=== PATIENT | female | born 1945 | race Asian ===

== ENCOUNTER 2019-10-04 12:42 | Outpatient (RCR) | payer MEDICARE, SELFPAY ==
[2019-10-04 14:00] LABS: CRP 0.6 mg/dL (<1.0); Estimated Glomerular Filt Rate 48
[2019-10-04 14:01] LABS: Erythrocyte Sedimentation Rate 126 mm/hr (0-20)
== END 2020-01-02 23:59 | disposition home or self-care (01) ==
LOC: HOME HLTH 12:42
PROVIDERS: Visit Provider Internal Medicine
DX: T81.49XD Infection following a procedure, other surgical site, subsequent encounter (principal); I70.213 Atherosclerosis of native arteries of extremities with intermittent claudication, bilateral legs; Z95.1 Presence of aortocoronary bypass graft; Z95.820 Peripheral vascular angioplasty status with implants and grafts
CPT/HCPCS: 82565; 85652; 86140

== ENCOUNTER 2019-10-11 11:21 | Outpatient (RCR) | payer MEDICARE, SELFPAY ==
[2019-10-11 12:18] LABS: CRP 0.6 mg/dL (<1.0); Estimated Glomerular Filt Rate 44
[2019-10-11 12:50] LABS: Erythrocyte Sedimentation Rate 91 mm/hr (0-20)
== END 2020-01-09 23:59 | disposition home or self-care (01) ==
LOC: HOME HLTH 11:21
PROVIDERS: Visit Provider Internal Medicine
DX: T81.49XD Infection following a procedure, other surgical site, subsequent encounter (principal); Z48.812 Encounter for surgical aftercare following surgery on the circulatory system; I70.213 Atherosclerosis of native arteries of extremities with intermittent claudication, bilateral legs; Z95.820 Peripheral vascular angioplasty status with implants and grafts; Z95.1 Presence of aortocoronary bypass graft
CPT/HCPCS: 82565; 85652; 86140

== ENCOUNTER 2019-10-18 15:28 | Outpatient (CLI) | payer MEDICARE, SELFPAY ==
[2019-10-18 18:04] LABS: CRP < 0.5 mg/dL (<1.0); Estimated Glomerular Filt Rate 48
[2019-10-18 18:12] LABS: Erythrocyte Sedimentation Rate 68 mm/hr (0-20)
== END 2019-10-18 15:29 | disposition home or self-care (01) ==
LOC: ANHBWCLAB 15:34
PROVIDERS: PCP Internal Medicine; Visit Provider Internal Medicine
DX: I70.213 Atherosclerosis of native arteries of extremities with intermittent claudication, bilateral legs (principal); Z95.1 Presence of aortocoronary bypass graft; Z95.820 Peripheral vascular angioplasty status with implants and grafts; Z48.812 Encounter for surgical aftercare following surgery on the circulatory system
CPT/HCPCS: 36415; 82565; 85652; 86140

== ENCOUNTER 2021-01-03 10:30 | Outpatient (RCR) | payer MEDICARE, SELFPAY ==
[2020-12-29 15:51] VITALS: PULSE 58
--- NOTE | 2021-01-01 10:44 | PCCPR ---
Patient absent for today's session stating she has too much to do today.
--- NOTE | 2021-01-04 10:44 | PCCPR ---
Absent due to illness Alesha called this am states she is very sore from her visit yesterday. She c/o feeling achey. States she plans to discuss if Cardiac rehab may be too much for her at this time. She plans to let us know on Friday.
--- NOTE | 2021-01-10 10:43 | PCCPR ---
Addendum entered by Ricarda Noel RN 01/25/21 11:01: Spoke with Carito states she is currently hospitalized at [facility] for pneumonia and difficulty swallowing. Explained we can give her a call in a couple of weeks to check on her condition. Addendum entered by Ricarda Noel RN 01/10/21 17:43: Alesha left message after her apt states her MD told her to hold off rehab for now. States he wants to tweek a few more things that will helf per feel little better prior to returning. States ok to place her on hold and will call us when she is ready to return. Original Note: Continued absence Spoke with Carito this am states she has an apt with her Yoga Teacher later today. She has x 1 visit here and c/o feeling achey all over and was not sure she could could continue. She plans to discuss this and let us know her plan for return.
== END 2021-02-23 10:09 | disposition home or self-care (01) ==
LOC: ANHCPREHAB 10:30
PROVIDERS: PCP Internal Medicine
DX: Z95.5 Presence of coronary angioplasty implant and graft (principal)
CPT/HCPCS: 93798

== ENCOUNTER 2021-02-19 18:40 | IRF | payer MEDICARE, SELFPAY ==
--- NOTE | ~2021-02-19 | XR_ITS ---
EXAMINATION: XR chest 2V EXAM DATE: 02/20/2021 15:10 INDICATION: Elevated white count. Recent pneumonia and CHF. TECHNIQUE: Frontal and lateral projections of the chest obtained and reviewed. There is no prior hollis dy for comparison. FINDINGS: Sternotomy wires are present without findings to suggest sternal dehiscence. There is incre ased left basilar reticulation which could be edema and/or pneumonia. Could be improving given histor y provided, but no prior studies here for comparison. Mild cardiomegaly. No confluent consolidation, pneumothorax or pleural effusion suspected. There are a couple of coronary artery stents. There is ao rtic arteriosclerosis. Mild hyperinflation. Mild mid thoracic compression fracture appears chronic. IMPRESSION: 1. Abnormal left basilar reticulation, edema and/or infection. No confluent consolidation. 2. Mild cardiomegaly. Reviewed, dictated and finalized at location A. IMPRESSION: 1. Abnormal left basilar reticulation, edema and/or infection. No confluent c onsolidation. 2. Mild cardiomegaly.
[2021-02-19 18:05] VITALS: BP 158/57; PULSE 67; RESP 16; TEMP 36; O2SAT 97; BMI 30.9
--- NOTE | 2021-02-19 18:40 | ADMGEN ---
This patient, Alesha Leo, was admitted to [facility] Room 220-02. Patient/family oriented to hospital policies and general routines including ID bracelet, bed and alarms, visiting hours, pain management, procedures, bathroom and other care routines, personal items, smoking policy, room service/diet, and visiting hours. Information on how to activate the Rapid Response Team has been discussed. Patient/Family are encouraged to report perceived risks to care and to ask questions if they do not understand what they are told or what they should do. Arrived with [facility], V/S are stable, patient is alert and oriented at this time
[2021-02-19 19:56] LABS: Glucose Point of Care 114 mg/dl (65-105)
[2021-02-19 20:00] VITALS: PULSE 67; RESP 16; O2SAT 97
[2021-02-19 22:00] VITALS: BP 153/51; PULSE 65; RESP 16; TEMP 36.6; O2SAT 97
[2021-02-19 22:02] VITALS: PULSE 67
[2021-02-19] MEDS: METOPROLOL TARTRATE 12.5 MG TABLET PO (22:02)
[2021-02-19] MEDS: GABAPENTIN 300 MG CAPSULE PO (22:02)
[2021-02-19] MEDS: SENNA/DOCUSATE SODIUM TABLET 1 TAB PO (22:02)
[2021-02-19] MEDS: TICAGRELOR 90 MG TABLET PO (22:03)
[2021-02-20 02:59] VITALS: PULSE 63; RESP 20; O2SAT 93
[2021-02-20 05:15] LABS: Basophils Absolute Auto 0.1 K/mm3 (0.0-0.1); Basophils Percent Auto 0.4 % (0.2-1.2); Eosinophils Absolute Auto 0.2 K/mm3 (0-0.3); Eosinophils Percent Auto 1.6 % (0-4.4); Hematocrit 24.5 % (37.0-47.0); Hemoglobin 7.3 g/dL (12.0-15.0); Immature Granulocyte Absolute 0.21 K/mm3 (0.00-0.031); Immature Granulocyte Percent A 1.5 % (0-0.5); Lymphocytes Absolute Auto 1.01 K/mm3 (0.9-3.2); Lymphocytes Percent Auto 7.2 % (18.3-44.2); Mean Corpuscular HGB Conc 29.8 g/dl (32-36); Mean Corpuscular Volume 83.9 fl (80-100); Mean Platelet Volume 11.1 fl (7.4-10.4); Monocytes Absolute Auto 0.8 K/mm3 (0.1-0.6); Monocytes Percent Auto 5.5 % (2.6-8.5); Neutrophils Absolute Auto 11.7 K/mm3 (1.3-6.7); Neutrophils Percent Auto 83.8 % (45.5-73.1); Platelet Count Result 334 k/mm3 (150-375); Red Blood Count 2.92 M/mm3 (4.2-5.4); Red Cell Distribution Width 15.4 % (11.5-14.5); White Blood Count 13.9 K/mm3 (4.5-10.0)
[2021-02-20 05:27] LABS: Alanine Aminotransferase 8 U/L (4-35); Albumin Level 3.2 g/dL (3.5-5.1); Alkaline Phosphatase 65 U/L (38-126); Anion Gap 9 mmol/L (8-16); Aspartate Amino Transferase 23 U/L (14-36); Bilirubin,Total 0.3 mg/dL (0.2-1.3); Blood Urea Nitrogen 14 mg/dL (7-17); Calcium 9.6 mg/dL (8.4-10.2); Carbon Dioxide 22 mmol/L (22-30); Chloride 107 mmol/L (98-107); Estimated CRCL calculation 25 ml/min; Estimated Glomerular Filt Rate 31; Glucose 166 mg/dL (65-105); Hemoglobin A1C 7.3 % (<5.7); Sodium 138 mmol/L (137-145)
[2021-02-20 06:00] VITALS: BP 147/40; PULSE 70; RESP 20; TEMP 36.8; O2SAT 94
[2021-02-20 06:51] LABS: Glucose Point of Care 146 mg/dl (65-105)
[2021-02-20] MEDS: FLUTICASONE/SALMETEROL 115-21 MCG INHALER 1 PUFF 2 PUFF INHALATION (09:32)
[2021-02-20] MEDS: LORATADINE 10 MG TABLET PO (10:02)
[2021-02-20] MEDS: buPROPion HCL 75 MG TABLET PO ×2 (10:02→17:14)
[2021-02-20] MEDS: FAMOTIDINE 20 MG TABLET 40 MG PO (10:02)
[2021-02-20] MEDS: OMEGA 3 POLYUNSAT FATTY ACIDS 1 GM CAP 2 GM PO (10:03)
[2021-02-20] MEDS: TICAGRELOR 90 MG TABLET PO ×2 (10:03→20:18)
[2021-02-20] MEDS: CEFUROXIME AXETIL 250 MG TABLET 500 MG PO ×2 (10:03→20:13)
[2021-02-20] MEDS: VENLAFAXINE HCL 25 MG TABLET PO ×2 (10:04→17:15)
[2021-02-20] MEDS: FLUoxetine HCL 20 MG CAPSULE 40 MG PO (10:04)
[2021-02-20] MEDS: ATORVASTATIN 40 MG TABLET 80 MG PO (10:04)
[2021-02-20] MEDS: ASPIRIN 81 MG CHEWABLE TABLET PO (10:04)
[2021-02-20] MEDS: FUROSEMIDE 20 MG TABLET PO (10:04)
[2021-02-20 10:05] VITALS: PULSE 70
[2021-02-20] MEDS: ISOSORBIDE MONONITRATE 10 MG TABLET PO ×2 (10:05→17:15)
[2021-02-20] MEDS: METOPROLOL TARTRATE 12.5 MG TABLET PO ×2 (10:05→20:16)
[2021-02-20] MEDS: FERROUS SULFATE 324 MG TABLET PO (10:05)
[2021-02-20] MEDS: amLODIPine BESYLATE 5 MG TABLET PO (10:05)
[2021-02-20] MEDS: ONDANSETRON HCL ODT 4 MG TABLET PO (11:11)
--- NOTE | 2021-02-20 11:46 | PCSTNOTE ---
Please refer to the Bedside Swallow Evaluation in the EMR. Please note, silent aspiration cannot be ruled out at bedside.
[2021-02-20 12:10] LABS: Glucose Point of Care 162 mg/dl (65-105)
[2021-02-20 12:20] VITALS: BMI 30.9
--- NOTE | 2021-02-20 12:58 | WPDREHABHP ---
H&P: HPI History of Present Illness Date/Time: 02/20/21 12:58 Chief Complaint: acute congestive heart failure Narrative: HISTORY OF PRESENT ILLNESS: The patient's primary rehab impairment category is 14 cardiac The etiologic diagnosis is acute congestive heart failure I saw this patient [id number] on 02/20/2021 The patient is a 75-year-old female past medical history of JASON, AFib, coronary artery disease, depression, diabetes, dyspnea on exertion, GERD, peripheral vascular disease and hypertension who initially presented to [facility] from 01/23-2020 for pneumonia. Patient was discharged on 02/03 and readmitted on 02/04 with congestive heart failure, left pleural effusion and mild pulmonary edema. Patient was placed on Solu-Medrol and nebulizers. D-dimer was elevated but CT could not be performed due to acute kidney injury. The patient was transferred to [facility] on 02/04/2021 per family's request. Patient was found to be in acute congestive heart failure requiring IV Lasix, acute cystitis and UTI with IV cefoxitin for 5-7 days starting on 02/16/2021. Modified barium swallow showed pharyngeal esophageal dysphagia. Patient was placed on a pureed diet with thin liquids. Patient is to follow with Dr. Bergeron, ENT. Acute kidney injury was resolving with down trending lab values. Diuretics were used judiciously. H and H continue to down trend without clinical signs of bleeding or symptoms Therapy was initiated at the acute care facility and the patient transferred to us from [facility] on 02/19/2021 FALLS OR SURGERIES: The patient reports no falls in the past 6 months nor any major surgery in the past 100 days PRIOR LEVEL OF FUNCTION: Eating was [INDEPENDENT] Oral Care was [INDEPENDENT] Toileting Hygiene was [INDEPENDENT] Shower/Bathing was [INDEPENDENT] Upper Body Dressing was [INDEPENDENT] Lower Body Dressing was [INDEPENDENT] Donning/[place] Footwear was [INDEPENDENT] Rolling Left and Right was [INDEPENDENT] Sit to Lying was [INDEPENDENT] Lying to Sitting was [INDEPENDENT] Sit to Stand was [INDEPENDENT] Bed to Chair Transfers was [INDEPENDENT] Toilet Transfers was [INDEPENDENT] Walking was [INDEPENDENT] [>500 feet] with [NO DEVICE] Wheelchair Mobility was [NOT APPLICABLE PRIOR TO ADMISSION] Stairs were [INDEPENDENT] CURRENT LEVEL OF FUNCTION: Eating was independent Oral Care was supervision Toileting Hygiene was partial to mod assist Shower/Bathing was partial to mod assist Upper Body Dressing was supervision or touching assist Lower Body Dressing was partial to mod assist Donning/[place] Footwear was partial to mod assist Rolling Left and Right was supervision Sit to Lying was supervision Lying to Sitting was supervision Sit to Stand was partial to mod assist Bed to Chair Transfers were partial to mod assist Toilet Transfers were partial to mod assist Walking was 300 ft with a rolling walker and partial to mod assist Wheelchair Mobility was not tested Stairs were not tested GOALS: Our therapists will evaluate the patient and establish the goals. However, upon pre-admission screening, the expected goals were to be [INDEPENDENT] with self-care, [INDEPENDENT] with transfers, and [INDEPENDENT] with functional mobility so that the patient can return home. ESTIMATED LENGTH OF STAY: [ 7-10 days POTENTIAL BARRIERS TO DISCHARGE: Family needs training. Severity of condition. Architectural barriers. ACTIVE CO-MORBIDITIES PRESENT ON ADMISSION: Active co-morbidities include urinary tract infection, dyspnea on exertion, obstructive sleep apnea, atrial fib, depression, diabetes mellitus, gastropathy esophageal reflux disease, kidney calculus, peripheral vascular disease, hypertension, Frenchie x's off a senior care dysphagia, pneumonia, acute kidney injury, acute cystitis. The above co-morbidities impact the patient's function and/or functional outcome by decreasi
--- NOTE | 2021-02-20 13:40 | PCNSR ---
On 02/20/21, the student, Nette Abdi, provided care and completed [facility] documentation on this patient. I have reviewed the student's documentation and agree with the findings.
[2021-02-20 14:00] VITALS: BP 120/42; PULSE 57; RESP 14; TEMP 36; O2SAT 97
--- NOTE | 2021-02-20 17:04 | RPD ---
INDIVIDUALIZED PLAN OF CARE FOR Alesha Leo Brief Synthesis of Pre-Admission Screen, Post-Admission Evaluation and Therapy Evaluations: The patient presents to rehab with acute congestive heart failure, acute cystitis, and dysphagia. Comorbidities include urinary tract infection, dyspnea on exertion, obstructive sleep apnea, atrial fibrillation, depression, diabetes mellitus, gastroesophageal reflux disease, kidney calculus, peripheral vascular disease, hypertension, pharyngoesophageal dysphagia, pneumonia, acute kidney injury, and acute cystitis. The complexity of the patient's medical management, nursing, and therapy needs require an inpatient rehab hospital stay with a physician-led interdisciplinary team approach. The patient?s needs will be best met in an intensive program vs. at a lower level of care. The patient requires physician services for medical oversight, management of medical complications in setting of present comorbidities, and pain management. The patient requires nursing services for anticoagulation therapy, diabetes training, DVT prophylactics, IV administration, infection protection, medication management and education, pressure relief, and wound care. Deficits include:ADLs, Balance, Endurance, Family Training/Education, Mobility, Pain Management, ROM, Safety, Strength, Swallowing, and Transfers. Class A Regional Drivers/Case Management for: Discharge Planning and Patient/Family Counseling Physical Therapy: 5 days per week for 60 minutes. Treatments may include: Therapeutic Exercise, Gait Training, Neuromuscular Re-education, Transfer Training, Community Reintegration, Bed Mobility, Patient/Family Education, Wheelchair Mobility Group Therapy/Concurrent Therapy Rationales: -Improve attention span during functional activities in a distracted environment. -Enhance problem solving and/or adequate judgment skills during functional activities in a distracted environment. -Promote increased safety awareness in a distracted environment to reduce fall risk with functional tasks, transfers, and ambulation to allow a more safe, self-sufficient return to the home environment. -Improve dynamic balance skills to promote safety and independence with functional activities in a distracted environment for maximum gain. Occupational Therapy: 5 days per week for 60 minutes. Treatments may include: Therapeutic Exercise, Therapeutic Activity, Cognitive Training, Self-Care Transfer Training, Community Reintegration, Home Management, Patient/Family Education, Wheelchair Mobility Training, Energy Conservation Training Group Therapy/Concurrent Therapy Rationales: -Allow therapist to observe and teach generalization and carry-over of skills learned in individual therapy. -Enhance problem solving and sequencing skills during therapeutic activities in a distracted environment. -Promote increased safety awareness in a realistic setting to reduce fall risk with functional tasks due to visual and verbal distractions. -Increase functional level with ADLs, ADL transfers and use of adaptive equipment through therapeutic activities with others while promoting safety to allow a more safe, self-sufficient return home. Speech Therapy: 5 days per week for 60 minutes. Treatments may include: Dysphasia Therapy, Speech/Language/Communication Therapy, Cognitive Training, Patient/Family Education Group Therapy/Concurrent Therapy - Rationale: -Allow therapist to observe and teach generalization and carry-over of skills learned in individual therapy. -Improve comprehension skills with complex or abstract ideas through discussion in a realistic setting. -Enhance problem solving skills with complex issues during activities in a distracted environment. -Promote increased memory skills and concentration in a distracted environment for a safe transition home. -Improve attention and focus with language/communication skills in a realistic and supportive therapeutic setting. -Allow for practice of expres
[2021-02-20] MEDS: FENOFIBRATE NANOCRYSTALLIZED 145 MG TABLET PO (17:11)
[2021-02-20] MEDS: INSULIN GLARGINE (*BKC) 100 UNITS/ML 15 UNITS SUB-Q (20:11)
[2021-02-20] MEDS: GABAPENTIN 300 MG CAPSULE PO (20:15)
[2021-02-20 20:16] VITALS: PULSE 60
[2021-02-20] MEDS: SENNA/DOCUSATE SODIUM TABLET 1 TAB PO (20:17)
[2021-02-20] MEDS: FLUTICASONE/SALMETEROL 115-21 MCG (*SP) INHALER 2 PUFF INHALATION (21:31)
[2021-02-20 21:57] VITALS: BP 124/58; PULSE 58; RESP 18; TEMP 36.5; O2SAT 97
[2021-02-20 22:39] LABS: Glucose Point of Care 148 mg/dl (65-105)
[2021-02-20 22:39] LABS: Glucose Point of Care 168 mg/dl (65-105)
--- NOTE | 2021-02-21 02:01 | PC.NURSE ---
pt reports having a bloody nose, bleeding has stopped at this time. Will continue to monitor.
[2021-02-21 05:48] VITALS: BP 139/42; PULSE 51; RESP 20; TEMP 36.2; O2SAT 98
[2021-02-21 06:27] LABS: Glucose Point of Care 111 mg/dl (65-105)
[2021-02-21] MEDS: ASPIRIN 81 MG CHEWABLE TABLET PO (10:29)
[2021-02-21] MEDS: VENLAFAXINE HCL 25 MG TABLET PO ×2 (10:30→17:09)
[2021-02-21] MEDS: FLUTICASONE/SALMETEROL 115-21 MCG (*SP) INHALER 2 PUFF INHALATION ×2 (10:30→19:50)
[2021-02-21] MEDS: FAMOTIDINE 20 MG TABLET 40 MG PO (10:30)
[2021-02-21] MEDS: amLODIPine BESYLATE 5 MG TABLET PO (10:31)
[2021-02-21] MEDS: FLUoxetine HCL 20 MG CAPSULE 40 MG PO (10:31)
[2021-02-21] MEDS: buPROPion HCL 75 MG TABLET PO ×2 (10:31→17:08)
[2021-02-21] MEDS: CEFUROXIME AXETIL 250 MG TABLET 500 MG PO ×2 (10:32→21:19)
[2021-02-21 10:33] VITALS: PULSE 51
[2021-02-21] MEDS: FUROSEMIDE 20 MG TABLET PO (10:33)
[2021-02-21] MEDS: ISOSORBIDE MONONITRATE 10 MG TABLET PO ×2 (10:33→17:08)
[2021-02-21] MEDS: LORATADINE 10 MG TABLET PO (10:33)
[2021-02-21] MEDS: TICAGRELOR 90 MG TABLET PO ×2 (10:33→21:18)
[2021-02-21] MEDS: FERROUS SULFATE 324 MG TABLET PO (10:33)
[2021-02-21] MEDS: METOPROLOL TARTRATE 12.5 MG TABLET PO ×2 (10:33→21:19)
[2021-02-21 13:09] LABS: Basophils Absolute Auto 0.1 K/mm3 (0.0-0.1); Basophils Percent Auto 0.7 % (0.2-1.2); Eosinophils Absolute Auto 0.2 K/mm3 (0-0.3); Eosinophils Percent Auto 2.1 % (0-4.4); Hematocrit 25.4 % (37.0-47.0); Hemoglobin 7.4 g/dL (12.0-15.0); Immature Granulocyte Absolute 0.17 K/mm3 (0.00-0.031); Immature Granulocyte Percent A 1.7 % (0-0.5); Lymphocytes Absolute Auto 1.27 K/mm3 (0.9-3.2); Lymphocytes Percent Auto 12.9 % (18.3-44.2); Mean Corpuscular HGB Conc 29.1 g/dl (32-36); Mean Corpuscular Hemoglobin 24.8 pg (26-34); Mean Corpuscular Volume 85.2 fl (80-100); Mean Platelet Volume 11.3 fl (7.4-10.4); Monocytes Absolute Auto 0.6 K/mm3 (0.1-0.6); Neutrophils Absolute Auto 7.6 K/mm3 (1.3-6.7); Neutrophils Percent Auto 76.6 % (45.5-73.1); Nucleated Red Blood Cells Perc 0.2 % (0.0-0.2); Platelet Count Result 379 k/mm3 (150-375); Red Blood Count 2.98 M/mm3 (4.2-5.4); White Blood Count 9.9 K/mm3 (4.5-10.0)
[2021-02-21] MEDS: FENOFIBRATE NANOCRYSTALLIZED 145 MG TABLET PO (13:24)
[2021-02-21 14:00] VITALS: BP 129/48; PULSE 60; RESP 18; TEMP 36.2; O2SAT 96
--- NOTE | 2021-02-21 14:00 | WPDNEURORHBP ---
Subjective Date/time seen: 02/21/21 14:00 Interval history: Diagnosis: acute on chronic congestive heart failure with acute on chronic kidney disease The patient is a 75-year-old female past medical history of JASON, AFib, coronary artery disease, depression, diabetes, dyspnea on exertion, GERD, peripheral vascular disease and hypertension who initially presented to [facility] from 01/23-2020 for pneumonia. Patient was discharged on 02/03 and readmitted on 02/04 with congestive heart failure, left pleural effusion and mild pulmonary edema. Patient was placed on Solu-Medrol and nebulizers. D-dimer was elevated but CT could not be performed due to acute kidney injury. The patient was transferred to [facility] on 02/04/2021 per family's request. Patient was found to be in acute congestive heart failure requiring IV Lasix, and diagnosed with acute cystitis and UTI with IV cefoxitin for 5-7 days starting on 02/16/2021. Modified barium swallow showed pharyngeal esophageal dysphagia. Patient was placed on a pureed diet with thin liquids. Patient is to follow with Dr. Bergeron, ENT. Acute kidney injury was resolving with down trending lab values. Diuretics were used judiciously. H and H continue to down trend without clinical signs of bleeding or symptoms Therapy was initiated at the acute care facility and the patient transferred to us from [facility] on 02/19/2021 02/21/21 Alesha complains of loose stools. She has been on IV antibiotics off and on for the last few weeks for treatments of pneumonia and urinary tract infection. Stool softeners will be changed to p.r.n.. Patient will be started on Florastor. Patient has difficulty swallowing pills whole. Currently, pills are being crushed. Patient will be advanced to minced and moist diet. to bring in home meds. Patient with polypharmacy. Review of Systems Review of Systems: All systems reviewed & are unremarkable except as noted in HPI and below Functional Status Ambulation Ability Ability to Ambulate 10 Feet: Contact Guard Ability to Ambulate 50 Feet With 2 Turns: Contact Guard Ambulation Assistive Devices: Walker, Wheeled Exam Narrative: Exam Narrative: Head is normocephalic. External ocular muscles are intact. Neck is supple. Heart rate and rhythm is regular. Lungs are decreased in both bases. Abdomen is soft nontender. Bilateral upper and lower extremity strength are 4- out of 5. Endurance is fair. Cognition reveals mild memory deficits and organizational deficits. Transfers are CGA Objective Data Vital Signs Vital Signs: Vital Signs - 24 hr 02/20/21 20:16 02/20/21 21:57 02/21/21 05:48 Temperature 36.5 C 36.2 C L Pulse Rate 60 58 L 51 L Respiratory Rate 18 20 Blood Pressure 124/58 L 139/42 L Pulse Oximetry 97 98 02/21/21 10:33 Temperature Pulse Rate 51 L Respiratory Rate Blood Pressure Pulse Oximetry Intake/Output Intake/Output: Intake & Output 02/18/21 02/19/21 02/20/21 02/21/21 23:59 23:59 23:59 23:59 Intake Total 480 480 Balance 480 480 Meds/Results Medications: Active Medications Generic Name Dose Route Start Last Admin Trade Name Freq PRN Reason Stop Dose Admin Albuterol 2 puff 02/19/21 20:12 Albuterol Sulfate (*Sp) Aerosol 1 Puff INHALATION Q6H PRN Shortness Of Breath Or Wheezing Amlodipine Besylate 5 mg 02/20/21 09:00 02/21/21 10:31 Amlodipine Besylate 5 Mg Tablet PO 5 mg DAILY GERRI Administration Aspirin 81 mg 02/20/21 08:00 02/21/21 10:29 Aspirin 81 Mg Chewable Tablet PO 81 mg DAILY@0800 GERRI Administration Atorvastatin Calcium 80 mg 02/20/21 09:00 02/20/21 10:04 Atorvastatin 40 Mg Tablet PO 80 mg Q48H GERRI Administration Bupropion HCl 75 mg 02/20/21 09:00 02/21/21 10:31 Bupropion Hcl 75 Mg Tablet PO 75 mg BID GERRI Administration Cefuroxime Axetil 500 mg 02/20/21 09:00 02/21/21 10:32 Cefuroxime Axetil 250 Mg T
[2021-02-21 15:42] LABS: Hypochromasia 1+ (NORMAL)
[2021-02-21 15:43] LABS: Anisocytosis 2+ (NORMAL)
[2021-02-21 16:37] LABS: Glucose Point of Care 181 mg/dl (65-105)
[2021-02-21 16:57] LABS: Glucose Point of Care 184 mg/dl (65-105)
[2021-02-21] MEDS: SACCHAROMYCES BOULARDII 250 MG CAPSULE PO (17:08)
--- NOTE | 2021-02-21 17:44 | P.CONIM_ITS ---
Assessment and Plan Assessment and plan (1) Chronic diastolic CHF (congestive heart failure): Code(s): I50.32 - Chronic diastolic (congestive) heart failure Status: Acute Assessment and Plan: * Appears euvolemic and well-compensated now after recent hospitalization for CHF exacerbation. * Continue oral lasix and monitor. * Her pie bakery laborer is Dr Gallagher at [facility]. (2) Anemia: Qualifiers: Anemia type: unspecified type Qualified Code(s): D64.9 - Anemia, unspecified Code(s): D64.9 - Anemia, unspecified Status: Acute Assessment and Plan: * Hgb low but stable at 7.4. Notes she had blood transfusion at [facility]. Denies black or red blood in stool. * Monitor CBC and for signs of bleeding. Continue iron supplementation. (3) Urinary tract infection: Qualifiers: Urinary tract infection type: site unspecified Hematuria presence: without hematuria Qualified Code(s): N39.0 - Urinary tract infection, site not specified Code(s): N39.0 - Urinary tract infection, site not specified Status: Acute Assessment and Plan: * Completes her course of antibiotics today. She denies urinary symptoms today. (4) Acute kidney injury superimposed on chronic kidney disease: Code(s): N17.9 - Acute kidney failure, unspecified; N18.9 - Chronic kidney disease, uns pecified Status: Acute Assessment and Plan: * Monitor renal function and urine output. (5) Hypertension: Qualifiers: Hypertension type: essential hypertension Qualified Code(s): I10 - Essential (primary) hypertension Code(s): I10 - Essential (primary) hypertension Status: Chronic Assessment and Plan: * Blood pressures reviewed. Stable, on lower end. Continue her home metoprolol, amlodipine. * Monitor BP and adjust treatment as needed. (6) Atrial fibrillation: Qualifiers: Atrial fibrillation type: paroxysmal Qualified Code(s): I48.0 - Paroxysmal atrial fibrillation Code(s): I48.91 - Unspecified atrial fibrillation Status: Chronic Assessment and Plan: * Rate controlled on home metoprolol. Continue Brilinta and aspirin. (7) Diabetes mellitus: Qualifiers: Diabetes mellitus type: type 2 Diabetes mellitus fpc insulin use: with buttermaker continuous churn use Diabetes mellitus complication status: with neurologic complications Diabetes mellitus complication detail: with unspecified neuropathy Qualified Code(s): E11.40 - Type 2 diabetes mellitus with diabetic neuropathy, unspecified; Z79.4 - moth exterminator (current) use of insulin Code(s): E11.9 - Type 2 diabetes mellitus without complications Status: Chronic Assessment and Plan: * Hgb A1c 7.3%. Continue Lantus. Blood sugars are well-controlled. Continue a diabetic diet. * Continue to monitor with accu-cheks and adjust treatment as needed. Add sliding scale insulin with Novolog if blood sugars increase. (8) Dysphagia, pharyngoesophageal: Code(s): R13.14 - Dysphagia, pharyngoesophageal phase Status: Acute Assessment and Plan: * Advanced to minced/moist with thin liquids. Was previously on pureed diet. Patient tells me she did well without coughing or other difficulty. * Continue ST.
--- NOTE | 2021-02-21 17:44 | PM.IMCN ---
Assessment and Plan Assessment and plan (1) Chronic diastolic CHF (congestive heart failure): Code(s): I50.32 - Chronic diastolic (congestive) heart failure Status: Acute Assessment and Plan: Appears euvolemic and well-compensated now after recent hospitalization for CHF exacerbation. Continue oral lasix and monitor. Her dba is Dr Gallagher at [facility]. (2) Anemia: Qualifiers: Anemia type: unspecified type Qualified Code(s): D64.9 - Anemia, unspecified Code(s): D64.9 - Anemia, unspecified Status: Acute Assessment and Plan: Hgb low but stable at 7.4. Notes she had blood transfusion at [facility]. Denies black or red blood in stool. Monitor CBC and for signs of bleeding. Continue iron supplementation. (3) Urinary tract infection: Qualifiers: Urinary tract infection type: site unspecified Hematuria presence: without hematuria Qualified Code(s): N39.0 - Urinary tract infection, site not specified Code(s): N39.0 - Urinary tract infection, site not specified Status: Acute Assessment and Plan: Completes her course of antibiotics today. She denies urinary symptoms today. (4) Acute kidney injury superimposed on chronic kidney disease: Code(s): N17.9 - Acute kidney failure, unspecified; N18.9 - Chronic kidney disease, unspecified Status: Acute Assessment and Plan: Monitor renal function and urine output. (5) Hypertension: Qualifiers: Hypertension type: essential hypertension Qualified Code(s): I10 - Essential (primary) hypertension Code(s): I10 - Essential (primary) hypertension Status: Chronic Assessment and Plan: Blood pressures reviewed. Stable, on lower end. Continue her home metoprolol, amlodipine. Monitor BP and adjust treatment as needed. (6) Atrial fibrillation: Qualifiers: Atrial fibrillation type: paroxysmal Qualified Code(s): I48.0 - Paroxysmal atrial fibrillation Code(s): I48.91 - Unspecified atrial fibrillation Status: Chronic Assessment and Plan: Rate controlled on home metoprolol. Continue Brilinta and aspirin. (7) Diabetes mellitus: Qualifiers: Diabetes mellitus type: type 2 Diabetes mellitus manager terminal insulin use: with halfway use Diabetes mellitus complication status: with neurologic complications Diabetes mellitus complication detail: with unspecified neuropathy Qualified Code(s): E11.40 - Type 2 diabetes mellitus with diabetic neuropathy, unspecified; Z79.4 - senior living (current) use of insulin Code(s): E11.9 - Type 2 diabetes mellitus without complications Status: Chronic Assessment and Plan: Hgb A1c 7.3%. Continue Lantus. Blood sugars are well-controlled. Continue a diabetic diet. Continue to monitor with accu-cheks and adjust treatment as needed. Add sliding scale insulin with Novolog if blood sugars increase. (8) Dysphagia, pharyngoesophageal: Code(s): R13.14 - Dysphagia, pharyngoesophageal phase Status: Acute Assessment and Plan: Advanced to minced/moist with thin liquids. Was previously on pureed diet. Patient tells me she did well without coughing or other difficulty. Continue ST. (9) Peripheral vascular disease: Code(s): I73.9 - Peripheral vascular disease, unspecified Status: Chronic Assessment and Plan: Patient reports multiple vascular procedures to right leg in the past including stents and bypass. Her vascular surgeon is Dr Nicko Madrid at [facility]. Continue her home Brilinta and ASA.
[2021-02-21 21:19] VITALS: PULSE 60
[2021-02-21] MEDS: GABAPENTIN 300 MG CAPSULE PO (21:24)
[2021-02-21] MEDS: INSULIN GLARGINE (*BKC) 100 UNITS/ML 15 UNITS SUB-Q (21:41)
[2021-02-21 22:00] VITALS: BP 151/46; PULSE 56; RESP 20; TEMP 35.8; O2SAT 99
[2021-02-22 03:53] LABS: Glucose Point of Care 188 mg/dl (65-105)
[2021-02-22 05:56] VITALS: BP 149/46; PULSE 53; RESP 20; TEMP 36.6; O2SAT 95
[2021-02-22 06:25] LABS: Glucose Point of Care 132 mg/dl (65-105)
[2021-02-22] MEDS: ATORVASTATIN 40 MG TABLET 80 MG PO (09:42)
[2021-02-22] MEDS: FLUoxetine HCL 20 MG CAPSULE 40 MG PO (09:42)
[2021-02-22] MEDS: VENLAFAXINE HCL 25 MG TABLET PO ×2 (09:42→18:20)
[2021-02-22] MEDS: SACCHAROMYCES BOULARDII 250 MG CAPSULE PO ×2 (09:42→18:20)
[2021-02-22] MEDS: FAMOTIDINE 20 MG TABLET 40 MG PO (09:42)
[2021-02-22] MEDS: TICAGRELOR 90 MG TABLET PO ×2 (09:42→20:59)
[2021-02-22] MEDS: FUROSEMIDE 20 MG TABLET PO (09:42)
[2021-02-22] MEDS: buPROPion HCL 75 MG TABLET PO ×2 (09:42→18:21)
[2021-02-22] MEDS: FENOFIBRATE NANOCRYSTALLIZED 145 MG TABLET PO (09:42)
[2021-02-22] MEDS: ISOSORBIDE MONONITRATE 10 MG TABLET PO ×2 (09:42→18:20)
[2021-02-22 09:43] VITALS: PULSE 62
[2021-02-22] MEDS: METOPROLOL TARTRATE 12.5 MG TABLET PO ×2 (09:43→20:58)
[2021-02-22] MEDS: ASPIRIN 81 MG CHEWABLE TABLET PO (09:43)
[2021-02-22] MEDS: amLODIPine BESYLATE 5 MG TABLET PO (09:43)
[2021-02-22] MEDS: FERROUS SULFATE 324 MG TABLET PO (09:43)
[2021-02-22] MEDS: LORATADINE 10 MG TABLET PO (09:43)
[2021-02-22] MEDS: FLUTICASONE/SALMETEROL 115-21 MCG (*SP) INHALER 2 PUFF INHALATION ×2 (09:43→21:00)
--- NOTE | 2021-02-22 09:54 | WPDNEURORHBP ---
Subjective Date/time seen: 02/22/21 09:54 Interval history: Diagnosis: acute on chronic congestive heart failure with acute on chronic kidney disease The patient is a 75-year-old female past medical history of JASON, AFib, coronary artery disease, depression, diabetes, dyspnea on exertion, GERD, peripheral vascular disease and hypertension who initially presented to [facility] from 01/23-2020 for pneumonia. Patient was discharged on 02/03 and readmitted on 02/04 with congestive heart failure, left pleural effusion and mild pulmonary edema. Patient was placed on Solu-Medrol and nebulizers. D-dimer was elevated but CT could not be performed due to acute kidney injury. The patient was transferred to [facility] on 02/04/2021 per family's request. Patient was found to be in acute congestive heart failure requiring IV Lasix, and diagnosed with acute cystitis and UTI with IV cefoxitin for 5-7 days starting on 02/16/2021. Modified barium swallow showed pharyngeal esophageal dysphagia. Patient was placed on a pureed diet with thin liquids. Patient is to follow with Dr. Bergeron, ENT. Acute kidney injury was resolving with down trending lab values. Diuretics were used judiciously. H and H continue to down trend without clinical signs of bleeding or symptoms Therapy was initiated at the acute care facility and the patient transferred to [facility] from [facility] on 02/19/2021 02/21/21 Alesha complains of loose stools. She has been on IV antibiotics off and on for the last few weeks for treatments of pneumonia and urinary tract infection. Stool softeners will be changed to p.r.n.. Patient will be started on Florastor. Patient has difficulty swallowing pills whole. Currently, pills are being crushed. Patient will be advanced to minced and moist diet. to bring in home meds. Patient with polypharmacy. 02/22/21 Patient having difficulties with liquids and cream of wheat. Speech therapist is aware. Speech therapist will test pureed diet and nectar thick liquids again. Patient denies any other complaints. Review of Systems Review of Systems: All systems reviewed & are unremarkable except as noted in HPI and below Functional Status Ambulation Ability Ability to Ambulate 10 Feet: Contact Guard Ability to Ambulate 50 Feet With 2 Turns: Contact Guard Ambulation Assistive Devices: Walker, Wheeled Exam Narrative: Exam Narrative: Head is normocephalic. External ocular muscles are intact. Neck is supple. Heart rate and rhythm is regular. Lungs are decreased in both bases. Abdomen is soft nontender. Bilateral upper and lower extremity strength are 4- out of 5. Endurance is fair. Cognition reveals mild memory deficits and organizational deficits. Transfers are CGA. Sitting tolerance is greater than 4 hours. Patient able to participate fully with therapy Objective Data Vital Signs Vital Signs: Vital Signs - 24 hr 02/21/21 10:33 02/21/21 14:00 02/21/21 21:19 Temperature 36.2 C L Pulse Rate 51 L 60 60 Respiratory Rate 18 Blood Pressure 129/48 L Pulse Oximetry 96 02/21/21 22:00 02/22/21 05:56 02/22/21 09:43 Temperature 35.8 C L 36.6 C Pulse Rate 56 L 53 L 62 Respiratory Rate 20 20 Blood Pressure 151/46 H 149/46 H Pulse Oximetry 99 95 Intake/Output Intake/Output: Intake & Output 02/19/21 02/20/21 02/21/21 02/22/21 23:59 23:59 23:59 23:59 Intake Total 480 720 120 Balance 480 720 120 Meds/Results Medications: Active Medications Generic Name Dose Route Start Last Admin Trade Name Freq PRN Reason Stop Dose Admin Albuterol 2 puff 02/19/21 20:12 Albuterol Sulfate (*Sp) Aerosol 1 Puff INHALATION Q6H PRN Shortness Of Breath Or Wheezing Amlodipine Besylate 5 mg 02/20/21 09:00 02/22/21 09:43 Amlodipine Besylate 5 Mg Tablet PO 5 mg DAILY GERRI Administration Aspirin 81 mg 02/20/21 08:00 02/22/21 09:43 Aspirin 81 Mg Chewable Tablet PO 81 mg DA
[2021-02-22 14:00] VITALS: BP 124/48; PULSE 60; RESP 18; TEMP 36.1; O2SAT 98
[2021-02-22] MEDS: GABAPENTIN 300 MG CAPSULE PO (21:00)
[2021-02-22 21:33] LABS: Glucose Point of Care 175 mg/dl (65-105)
[2021-02-22] MEDS: INSULIN GLARGINE (*BKC) 100 UNITS/ML 15 UNITS SUB-Q (21:57)
[2021-02-22 22:00] VITALS: BP 149/45; PULSE 62; RESP 18; TEMP 37; O2SAT 96
[2021-02-23 05:17] LABS: Basophils Absolute Auto 0.1 K/mm3 (0.0-0.1); Basophils Percent Auto 0.7 % (0.2-1.2); Eosinophils Absolute Auto 0.2 K/mm3 (0-0.3); Eosinophils Percent Auto 2.7 % (0-4.4); Hematocrit 22.7 % (37.0-47.0); Immature Granulocyte Absolute 0.08 K/mm3 (0.00-0.031); Lymphocytes Absolute Auto 1.48 K/mm3 (0.9-3.2); Lymphocytes Percent Auto 18.4 % (18.3-44.2); Mean Corpuscular HGB Conc 30.4 g/dl (32-36); Mean Corpuscular Hemoglobin 25.7 pg (26-34); Mean Corpuscular Volume 84.4 fl (80-100); Mean Platelet Volume 11.2 fl (7.4-10.4); Monocytes Absolute Auto 0.7 K/mm3 (0.1-0.6); Monocytes Percent Auto 8.2 % (2.6-8.5); Neutrophils Absolute Auto 5.6 K/mm3 (1.3-6.7); Platelet Count Result 313 k/mm3 (150-375); Red Blood Count 2.69 M/mm3 (4.2-5.4); Red Cell Distribution Width 17.1 % (11.5-14.5); White Blood Count 8.1 K/mm3 (4.5-10.0)
[2021-02-23 05:21] LABS: Hemoglobin 6.9 g/dL (12.0-15.0)
[2021-02-23 05:23] LABS: Anion Gap 10 mmol/L (8-16); Blood Urea Nitrogen 23 mg/dL (7-17); Calcium 9.6 mg/dL (8.4-10.2); Carbon Dioxide 22 mmol/L (22-30); Chloride 106 mmol/L (98-107); Estimated CRCL calculation 18 ml/min; Estimated Glomerular Filt Rate 22; Glucose 119 mg/dL (65-105); Potassium 4.1 mmol/L (3.4-5.0); Sodium 138 mmol/L (137-145)
[2021-02-23 06:00] VITALS: BP 146/49; PULSE 69; RESP 18; TEMP 36.7; O2SAT 95
[2021-02-23 06:13] LABS: Glucose Point of Care 123 mg/dl (65-105)
[2021-02-23] MEDS: FLUTICASONE/SALMETEROL 115-21 MCG (*SP) INHALER 2 PUFF INHALATION ×2 (09:32→21:01)
[2021-02-23 09:33] VITALS: PULSE 70
[2021-02-23] MEDS: LORATADINE 10 MG TABLET PO (09:33)
[2021-02-23] MEDS: VENLAFAXINE HCL 25 MG TABLET PO ×2 (09:33→17:06)
[2021-02-23] MEDS: METOPROLOL TARTRATE 12.5 MG TABLET PO ×2 (09:33→21:01)
[2021-02-23] MEDS: ISOSORBIDE MONONITRATE 10 MG TABLET PO ×2 (09:33→17:06)
[2021-02-23] MEDS: FUROSEMIDE 20 MG TABLET PO (09:33)
[2021-02-23] MEDS: ASPIRIN 81 MG CHEWABLE TABLET PO (09:33)
[2021-02-23] MEDS: amLODIPine BESYLATE 5 MG TABLET PO (09:33)
[2021-02-23] MEDS: FLUoxetine HCL 20 MG CAPSULE 40 MG PO (09:33)
[2021-02-23] MEDS: FAMOTIDINE 20 MG TABLET 40 MG PO (09:33)
[2021-02-23] MEDS: FERROUS SULFATE 324 MG TABLET PO (09:33)
[2021-02-23] MEDS: ERGOCALCIFEROL 50,000 UNIT CAPSULE 50000 UNITS PO (09:33)
[2021-02-23] MEDS: FENOFIBRATE NANOCRYSTALLIZED 145 MG TABLET PO (09:33)
[2021-02-23] MEDS: SACCHAROMYCES BOULARDII 250 MG CAPSULE PO ×2 (09:34→17:06)
[2021-02-23] MEDS: TICAGRELOR 90 MG TABLET PO ×2 (09:34→21:01)
[2021-02-23] MEDS: buPROPion HCL 75 MG TABLET PO ×2 (09:34→17:06)
--- NOTE | 2021-02-23 10:38 | PCDIET ---
Nutrition Follow-Up Complete: Nutrition Diagnosis: Inadequate oral intake related to CHF as evidenced by weight loss of 15lbs within one month. Nutrition Goal: Patient will meet estimated nutritional needs. Goal in progress. Patient consumed average of 68% of recorded meals since last review. c/o difficulty with cream of wheat yesterday. PREFITTER following. Patient currently on diabetic diet, minced and moist diet with level 2 liquids and Glucerna TID. Patient requesting to decrease Glucerna to 1x daily. Last recorded weight is 74.3 kg. Recommend obtaining new weight. Bowel Motility: Last documented BM on 02/21/21. Labs Reviewed: RBC (2.69), Hgb (6.9), Hct (22.7), Glu (119), BUN (23), Cr (2.2) Meds Noted: Norvasc, Lipitor, Drisdol, Pepcid, Tricor, Ferrous Sulfate, Lovaza, Lasix Additional Notes: No documented pressure sores. Will continue to monitor with same goal. Nutrition Monitoring and Evaluation: Will follow up in 5 days.
[2021-02-23 11:18] LABS: Glucose Point of Care 171 mg/dl (65-105)
--- NOTE | 2021-02-23 11:24 | WPDNEURORHBP ---
Subjective Date/time seen: 02/23/21 11:24 Interval history: Interval history: Diagnosis: acute on chronic congestive heart failure with acute on chronic kidney disease The patient is a 75-year-old female past medical history of JASON, AFib, coronary artery disease, depression, diabetes, dyspnea on exertion, GERD, peripheral vascular disease and hypertension who initially presented to [facility] from 01/23-2020 for pneumonia. Patient was discharged on 02/03 and readmitted on 02/04 with congestive heart failure, left pleural effusion and mild pulmonary edema. Patient was placed on Solu-Medrol and nebulizers. D-dimer was elevated but CT could not be performed due to acute kidney injury. The patient was transferred to [facility] on 02/04/2021 per family's request. Patient was found to be in acute congestive heart failure requiring IV Lasix, and diagnosed with acute cystitis and UTI with IV cefoxitin for 5-7 days starting on 02/16/2021. Modified barium swallow showed pharyngeal esophageal dysphagia. Patient was placed on a pureed diet with thin liquids. Patient is to follow with Dr. Bergeron, ENT. Acute kidney injury was resolving with down trending lab values. Diuretics were used judiciously. H and H continue to down trend without clinical signs of bleeding or symptoms Therapy was initiated at the acute care facility and the patient transferred to us from [facility] on 02/19/2021 02/21/21 Alesha complains of loose stools. She has been on IV antibiotics off and on for the last few weeks for treatments of pneumonia and urinary tract infection. Stool softeners will be changed to p.r.n.. Patient will be started on Florastor. Patient has difficulty swallowing pills whole. Currently, pills are being crushed. Patient will be advanced to minced and moist diet. to bring in home meds. Patient with polypharmacy. 02/22/21 Patient having difficulties with liquids and cream of wheat. Speech therapist is aware. Speech therapist will test pureed diet and nectar thick liquids again. Patient denies any other complaints. 02/23/21 Morning blood work revealed hemoglobin of 6.9. A repeat hemoglobin will be performed later today with hospitalists making the decision if patient requires blood transfusion. Patient voices no complaints. Patient feels that she is back to her baseline. Patient does not feel fatigued or weak. Appreciate hospitalist input. Review of Systems Review of Systems: All systems reviewed & are unremarkable except as noted in HPI and below Functional Status Ambulation Ability Ability to Ambulate 10 Feet: Standby Assistance Ability to Ambulate 50 Feet With 2 Turns: Contact Guard Ability to Ambulate 150 Feet: Contact Guard Ambulation Assistive Devices: Walker, Wheeled Exam Narrative: Exam Narrative: Exam Narrative: Head is normocephalic. External ocular muscles are intact. Neck is supple. Heart rate and rhythm is regular. Lungs are decreased in both bases. Voice quality is wet. Patient is able to cough and improve overall qaulity . Abdomen is soft nontender. Bilateral upper and lower extremity strength are 4- out of 5. Endurance is fair. Cognition reveals mild memory deficits and organizational deficits. Transfers are CGA?SBA. Sitting tolerance is greater than 4 hours. Patient able to participate fully with therapy Objective Data Vital Signs Vital Signs: Vital Signs - 24 hr 02/22/21 14:00 02/22/21 22:00 02/23/21 06:00 Temperature 36.1 C L 37.0 C 36.7 C Pulse Rate 60 62 69 Respiratory Rate 18 18 18 Blood Pressure 124/48 L 149/45 H 146/49 H Pulse Oximetry 98 96 95 02/23/21 09:33 Temperature Pulse Rate 70 Respiratory Rate Blood Pressure Pulse Oximetry Intake/Output Intake/Output: Intake & Output 02/20/21 02/21/21 02/22/21 02/23/21 23:59 23:59 23:59 23:59 Intake Total 480 720 480 240 Balance 480 720 480 240 Meds/Results Medications: Active Medications Ge
[2021-02-23 12:49] LABS: Hematocrit 24.3 % (37.0-47.0); Hemoglobin 7.3 g/dL (12.0-15.0)
[2021-02-23 14:00] VITALS: BP 118/47; PULSE 60; RESP 16; TEMP 36.5; O2SAT 96
--- NOTE | 2021-02-23 15:37 | P.PNIM_ITS ---
Progress Note: A&P Assessment and Plan (1) Chronic diastolic CHF (congestive heart failure): Code(s): I50.32 - Chronic diastolic (congestive) heart failure Status: Acute Assessment and Plan: * Appears euvolemic and well-compensated now after recent hospitalization for CHF exacerbation. * Continue oral lasix and monitor. * Her geophysical laboratory director is Dr Gallagher at [facility]. (2) Anemia: Qualifiers: Anemia type: unspecified type Qualified Code(s): D64.9 - Anemia, unspecified Code(s): D64.9 - Anemia, unspecified Status: Acute Assessment and Plan: * Hgb 6.9 this morning. Discussed with Dr Rock. Repeat labs this afternoon shows Hgb up to 7.3, will hold off on blood transfusion at this time and monitor. Patient feels good. Notes she had blood transfusion at [facility]. Denies black or red blood in stool. * Monitor CBC and for signs of bleeding. Continue iron supplementation. (3) Urinary tract infection: Qualifiers: Urinary tract infection type: site unspecified Hematuria presence: without hematuria Qualified Code(s): N39.0 - Urinary tract infection, site not specified Code(s): N39.0 - Urinary tract infection, site not specified Status: Resolved Assessment and Plan: * Completed antibiotics. No acute issues. (4) Acute kidney injury superimposed on chronic kidney disease: Code(s): N17.9 - Acute kidney failure, unspecified; N18.9 - Chronic kidney disease, unspecified Status: Acute Assessment and Plan: * Cr rising a bit. Monitor renal function and urine output. (5) Hypertension: Qualifiers: Hypertension type: essential hypertension Qualified Code(s): I10 - Essential (primary) hypertension Code(s): I10 - Essential (primary) hypertension Status: Chronic Assessment and Plan: * Blood pressures reviewed. Stable, on lower end. Continue her home metoprolol, amlodipine. * Monitor BP and adjust treatment as needed. (6) Atrial fibrillation: Qualifiers: Atrial fibrillation type: paroxysmal Qualified Code(s): I48.0 - Paroxysmal atrial fibrillation Code(s): I48.91 - Unspecified atrial fibrillation Status: Chronic Assessment and Plan: * Rate controlled on home metoprolol. Continue Brilinta and aspirin. (7) Diabetes mellitus: Qualifiers: Diabetes mellitus type: type 2 Diabetes mellitus ocean transportation intermediary insulin use: with ocean transportation intermediary use Diabetes mellitus complication status: with neurologic complications Diabetes mellitus complication detail: with unspecified neuropathy Qualified Code(s): E11.40 - Type 2 diabetes mellitus with diabetic neuropathy, unspecified; Z79.4 - detention (current) use of insulin Code(s): E11.9 - Type 2 diabetes mellitus without complications Status: Chronic Assessment and Plan: * Hgb A1c 7.3%. Continue Lantus. Blood sugars are well-controlled. Continue a diabetic diet. * Continue to monitor with accu-cheks and adjust treatment as needed. Add sliding scale insulin with Novolog if blood sugars increase. (8) Dysphagia, pharyngoesophageal: Code(s): R13.14 - Dysphagia, pharyngoesophageal phase Status: Acute Assessment and Plan: * Current diet is minced/moist with mildly thickened liquids. * Travis
--- NOTE | 2021-02-23 15:37 | PM.IMPN ---
Progress Note: A&P Assessment and Plan (1) Chronic diastolic CHF (congestive heart failure): Code(s): I50.32 - Chronic diastolic (congestive) heart failure Status: Acute Assessment and Plan: Appears euvolemic and well-compensated now after recent hospitalization for CHF exacerbation. Continue oral lasix and monitor. Her montessori teacher is Dr Gallagher at [facility]. (2) Anemia: Qualifiers: Anemia type: unspecified type Qualified Code(s): D64.9 - Anemia, unspecified Code(s): D64.9 - Anemia, unspecified Status: Acute Assessment and Plan: Hgb 6.9 this morning. Discussed with Dr Rock. Repeat labs this afternoon shows Hgb up to 7.3, will hold off on blood transfusion at this time and monitor. Patient feels good. Notes she had blood transfusion at [facility]. Denies black or red blood in stool. Monitor CBC and for signs of bleeding. Continue iron supplementation. (3) Urinary tract infection: Qualifiers: Urinary tract infection type: site unspecified Hematuria presence: without hematuria Qualified Code(s): N39.0 - Urinary tract infection, site not specified Code(s): N39.0 - Urinary tract infection, site not specified Status: Resolved Assessment and Plan: Completed antibiotics. No acute issues. (4) Acute kidney injury superimposed on chronic kidney disease: Code(s): N17.9 - Acute kidney failure, unspecified; N18.9 - Chronic kidney disease, unspecified Status: Acute Assessment and Plan: Cr rising a bit. Monitor renal function and urine output. (5) Hypertension: Qualifiers: Hypertension type: essential hypertension Qualified Code(s): I10 - Essential (primary) hypertension Code(s): I10 - Essential (primary) hypertension Status: Chronic Assessment and Plan: Blood pressures reviewed. Stable, on lower end. Continue her home metoprolol, amlodipine. Monitor BP and adjust treatment as needed. (6) Atrial fibrillation: Qualifiers: Atrial fibrillation type: paroxysmal Qualified Code(s): I48.0 - Paroxysmal atrial fibrillation Code(s): I48.91 - Unspecified atrial fibrillation Status: Chronic Assessment and Plan: Rate controlled on home metoprolol. Continue Brilinta and aspirin. (7) Diabetes mellitus: Qualifiers: Diabetes mellitus type: type 2 Diabetes mellitus assistant terminal manager insulin use: with jail use Diabetes mellitus complication status: with neurologic complications Diabetes mellitus complication detail: with unspecified neuropathy Qualified Code(s): E11.40 - Type 2 diabetes mellitus with diabetic neuropathy, unspecified; Z79.4 - termite treater helper (current) use of insulin Code(s): E11.9 - Type 2 diabetes mellitus without complications Status: Chronic Assessment and Plan: Hgb A1c 7.3%. Continue Lantus. Blood sugars are well-controlled. Continue a diabetic diet. Continue to monitor with accu-cheks and adjust treatment as needed. Add sliding scale insulin with Novolog if blood sugars increase. (8) Dysphagia, pharyngoesophageal: Code(s): R13.14 - Dysphagia, pharyngoesophageal phase Status: Acute Assessment and Plan: Current diet is minced/moist with mildly thickened liquids. Continue ST. (9) Peripheral vascular disease: Code(s): I73.9 - Peripheral vascular disease, unspecified Status: Chronic Assessment and Plan: Patient reports multiple vascular procedures to right leg in the past including stents and bypass. Her vascular surgeon is Dr Nicko Madrid at [facility]. Continue her home Br
[2021-02-23 16:33] LABS: Glucose Point of Care 185 mg/dl (65-105)
[2021-02-23] MEDS: GABAPENTIN 300 MG CAPSULE PO (21:00)
[2021-02-23 21:01] VITALS: PULSE 66
[2021-02-23] MEDS: INSULIN GLARGINE (*BKC) 100 UNITS/ML 15 UNITS SUB-Q (21:47)
[2021-02-23 22:00] VITALS: BP 155/39; PULSE 62; RESP 16; TEMP 36.2; O2SAT 95
[2021-02-24] VITALS (7 sets, daily range): BP systolic 127–166; BP diastolic 42–51; PULSE 57–64; RESP 16; TEMP 36.2–36.4; O2SAT 94–100
[2021-02-24 03:30] LABS: Glucose Point of Care 203 mg/dl (65-105)
[2021-02-24] MEDS: ISOSORBIDE MONONITRATE 10 MG TABLET PO ×2 (09:52→16:26)
[2021-02-24] MEDS: OMEGA 3 POLYUNSAT FATTY ACIDS 1 GM CAP 2 GM PO ×2 (09:52→16:26)
[2021-02-24] MEDS: VENLAFAXINE HCL 25 MG TABLET PO ×2 (09:52→16:26)
[2021-02-24] MEDS: FUROSEMIDE 20 MG TABLET PO (09:52)
[2021-02-24] MEDS: ATORVASTATIN 40 MG TABLET 80 MG PO (09:52)
[2021-02-24] MEDS: LORATADINE 10 MG TABLET PO (09:53)
[2021-02-24] MEDS: FLUoxetine HCL 20 MG CAPSULE 40 MG PO (09:53)
[2021-02-24] MEDS: FAMOTIDINE 20 MG TABLET 40 MG PO (09:53)
[2021-02-24] MEDS: FERROUS SULFATE 324 MG TABLET PO (09:53)
[2021-02-24] MEDS: FENOFIBRATE NANOCRYSTALLIZED 145 MG TABLET PO (09:53)
[2021-02-24] MEDS: ASPIRIN 81 MG CHEWABLE TABLET PO (09:53)
[2021-02-24] MEDS: amLODIPine BESYLATE 5 MG TABLET PO (09:54)
[2021-02-24] MEDS: SACCHAROMYCES BOULARDII 250 MG CAPSULE PO ×2 (09:54→16:28)
[2021-02-24] MEDS: buPROPion HCL 75 MG TABLET PO ×2 (09:54→16:26)
[2021-02-24] MEDS: METOPROLOL TARTRATE 12.5 MG TABLET PO ×2 (09:54→19:48)
[2021-02-24] MEDS: FLUTICASONE/SALMETEROL 115-21 MCG (*SP) INHALER 2 PUFF INHALATION ×2 (09:55→19:49)
[2021-02-24 11:56] LABS: Glucose Point of Care 109 mg/dl (65-105)
[2021-02-24 11:56] LABS: Glucose Point of Care 120 mg/dl (65-105)
[2021-02-24] MEDS: TICAGRELOR 90 MG TABLET PO ×2 (12:52→19:48)
[2021-02-24 17:02] LABS: Glucose Point of Care 156 mg/dl (65-105)
[2021-02-24] MEDS: GABAPENTIN 300 MG CAPSULE PO (19:48)
[2021-02-24 20:27] LABS: Glucose Point of Care 218 mg/dl (65-105)
[2021-02-24] MEDS: INSULIN GLARGINE (*BKC) 100 UNITS/ML 15 UNITS SUB-Q (20:48)
[2021-02-25 05:34] LABS: Hematocrit 24.3 % (37.0-47.0)
[2021-02-25 05:58] VITALS: BP 168/54; PULSE 66; RESP 16; TEMP 36.5; O2SAT 96
[2021-02-25 07:36] LABS: Glucose Point of Care 87 mg/dl (65-105)
[2021-02-25] MEDS: ASPIRIN 81 MG CHEWABLE TABLET PO (08:43)
[2021-02-25] MEDS: VENLAFAXINE HCL 25 MG TABLET PO ×2 (08:43→17:12)
[2021-02-25] MEDS: FLUTICASONE/SALMETEROL 115-21 MCG (*SP) INHALER 2 PUFF INHALATION ×2 (08:43→21:25)
[2021-02-25] MEDS: amLODIPine BESYLATE 5 MG TABLET PO (08:44)
[2021-02-25] MEDS: FENOFIBRATE NANOCRYSTALLIZED 145 MG TABLET PO (08:46)
[2021-02-25] MEDS: FAMOTIDINE 20 MG TABLET 40 MG PO (08:46)
[2021-02-25] MEDS: FERROUS SULFATE 324 MG TABLET PO (08:46)
[2021-02-25] MEDS: FLUoxetine HCL 20 MG CAPSULE 40 MG PO (08:46)
[2021-02-25] MEDS: FUROSEMIDE 20 MG TABLET PO (08:46)
[2021-02-25 08:47] VITALS: PULSE 66
[2021-02-25] MEDS: ISOSORBIDE MONONITRATE 10 MG TABLET PO ×2 (08:47→17:12)
[2021-02-25] MEDS: LORATADINE 10 MG TABLET PO (08:47)
[2021-02-25] MEDS: TICAGRELOR 90 MG TABLET PO ×2 (08:47→21:25)
[2021-02-25] MEDS: SACCHAROMYCES BOULARDII 250 MG CAPSULE PO ×2 (08:47→17:12)
[2021-02-25] MEDS: METOPROLOL TARTRATE 12.5 MG TABLET PO ×2 (08:47→21:25)
[2021-02-25] MEDS: buPROPion HCL 75 MG TABLET PO ×2 (10:15→17:11)
[2021-02-25 11:30] LABS: Glucose Point of Care 165 mg/dl (65-105)
[2021-02-25 14:00] VITALS: BP 150/68; PULSE 65; RESP 20; TEMP 36.4; O2SAT 96
[2021-02-25 16:41] LABS: Glucose Point of Care 178 mg/dl (65-105)
[2021-02-25] MEDS: INSULIN GLARGINE (*BKC) 100 UNITS/ML 15 UNITS SUB-Q (19:34)
[2021-02-25 19:38] LABS: Glucose Point of Care 253 mg/dl (65-105)
[2021-02-25 21:25] VITALS: PULSE 70
[2021-02-25] MEDS: GABAPENTIN 300 MG CAPSULE PO (21:25)
[2021-02-25 21:48] VITALS: BP 144/49; PULSE 62; RESP 18; TEMP 36.9; O2SAT 97
[2021-02-26 05:46] VITALS: BP 112/88; PULSE 75; RESP 18; TEMP 36.8; O2SAT 94
[2021-02-26 06:10] LABS: Glucose Point of Care 112 mg/dl (65-105)
[2021-02-26 07:39] LABS: Hematocrit 24.6 % (37.0-47.0); Hemoglobin 7.2 g/dL (12.0-15.0); Mean Corpuscular HGB Conc 29.3 g/dl (32-36); Mean Corpuscular Hemoglobin 25.4 pg (26-34); Mean Corpuscular Volume 86.9 fl (80-100); Mean Platelet Volume 11.3 fl (7.4-10.4); Platelet Count Result 308 k/mm3 (150-375); Red Blood Count 2.83 M/mm3 (4.2-5.4); Red Cell Distribution Width 17.8 % (11.5-14.5); White Blood Count 6.5 K/mm3 (4.5-10.0)
[2021-02-26 07:51] LABS: Anion Gap 8 mmol/L (8-16); Blood Urea Nitrogen 28 mg/dL (7-17); Calcium 9.8 mg/dL (8.4-10.2); Carbon Dioxide 26 mmol/L (22-30); Chloride 105 mmol/L (98-107); Estimated CRCL calculation 19 ml/min; Estimated Glomerular Filt Rate 23; Glucose 106 mg/dL (65-105); Potassium 3.5 mmol/L (3.4-5.0); Sodium 139 mmol/L (137-145)
--- NOTE | 2021-02-26 09:28 | WPDNEURORHBP ---
Subjective Date/time seen: 02/26/21 09:29 Interval history: Interval history: Diagnosis: acute on chronic congestive heart failure with acute on chronic kidney disease The patient is a 75-year-old female past medical history of JASON, AFib, coronary artery disease, depression, diabetes, dyspnea on exertion, GERD, peripheral vascular disease and hypertension who initially presented to [facility] from 01/23-2020 for pneumonia. Patient was discharged on 02/03 and readmitted on 02/04 with congestive heart failure, left pleural effusion and mild pulmonary edema. Patient was placed on Solu-Medrol and nebulizers. D-dimer was elevated but CT could not be performed due to acute kidney injury. The patient was transferred to [facility] on 02/04/2021 per family's request. Patient was found to be in acute congestive heart failure requiring IV Lasix, and diagnosed with acute cystitis and UTI with IV cefoxitin for 5-7 days starting on 02/16/2021. Modified barium swallow showed pharyngeal esophageal dysphagia. Patient was placed on a pureed diet with thin liquids. Patient is to follow with Dr. Bergeron, ENT. Acute kidney injury was resolving with down trending lab values. Diuretics were used judiciously. H and H continue to down trend without clinical signs of bleeding or symptoms Therapy was initiated at the acute care facility and the patient transferred to us from [facility] on 02/19/2021 02/21/21 Alesha complains of loose stools. She has been on IV antibiotics off and on for the last few weeks for treatments of pneumonia and urinary tract infection. Stool softeners will be changed to p.r.n.. Patient will be started on Florastor. Patient has difficulty swallowing pills whole. Currently, pills are being crushed. Patient will be advanced to minced and moist diet. to bring in home meds. Patient with polypharmacy. 02/22/21 Patient having difficulties with liquids and cream of wheat. Speech therapist is aware. Speech therapist will test pureed diet and nectar thick liquids again. Patient denies any other complaints. 02/23/21 Morning blood work revealed hemoglobin of 6.9. A repeat hemoglobin will be performed later today with hospitalists making the decision if patient requires blood transfusion. Patient voices no complaints. Patient feels that she is back to her baseline. Patient does not feel fatigued or weak. Appreciate hospitalist input. 02/26/2021. Patient seen with occupational therapy during bathing activity. Patient denies any complaints. Patient denies any shortness of breath or chest pain. Patient feels that she is getting stronger. Nursing reported that patient was unsteady and at times impulsive over the weekend. Case Management will set up family training with daughter and . Patient is on nectar thick liquid. Patient lacks insight into deficits. Review of Systems Review of Systems: All systems reviewed & are unremarkable except as noted in HPI and below Functional Status Ambulation Ability Ability to Ambulate 10 Feet: Standby Assistance Ability to Ambulate 50 Feet With 2 Turns: Contact Guard Ability to Ambulate 150 Feet: Contact Guard Ambulation Assistive Devices: Walker, Wheeled Exam Narrative: Exam Narrative: Head is normocephalic. External ocular muscles are intact. Neck is supple. Heart rate and rhythm is regular. Lungs are decreased in both bases. Abdomen is soft nontender. Bilateral upper and lower extremity strength are 4- out of 5. Endurance is fair. Cognition reveals mild memory deficits and organizational deficits. Patient requires an occasional cue regarding self med program. Objective Data Vital Signs Vital Signs: Vital Signs - 24 hr 02/25/21 14:00 02/25/21 21:25 02/25/21 21:48 Temperature 36.4 C L 36.9 C Pulse Rate 65 70 62 Respiratory Rate 20 18 Blood Pressure 150/68 H 144/49 H Pulse Oximetry 96 97 02/26/21 05:46 Temperature 36.8 C Pulse Rate 75
[2021-02-26] MEDS: FLUTICASONE/SALMETEROL 115-21 MCG (*SP) INHALER 2 PUFF INHALATION ×2 (09:31→20:41)
[2021-02-26] MEDS: VENLAFAXINE HCL 25 MG TABLET PO ×2 (09:31→17:15)
[2021-02-26] MEDS: ASPIRIN 81 MG CHEWABLE TABLET PO (09:31)
[2021-02-26] MEDS: amLODIPine BESYLATE 5 MG TABLET PO (09:31)
[2021-02-26] MEDS: buPROPion HCL 75 MG TABLET PO ×2 (09:32→17:15)
[2021-02-26] MEDS: ATORVASTATIN 40 MG TABLET 80 MG PO (09:32)
[2021-02-26] MEDS: FERROUS SULFATE 324 MG TABLET PO (09:32)
[2021-02-26] MEDS: FLUoxetine HCL 20 MG CAPSULE 40 MG PO (09:32)
[2021-02-26] MEDS: FENOFIBRATE NANOCRYSTALLIZED 145 MG TABLET PO (09:32)
[2021-02-26] MEDS: FAMOTIDINE 20 MG TABLET 40 MG PO (09:32)
[2021-02-26 09:33] VITALS: PULSE 75
[2021-02-26] MEDS: SACCHAROMYCES BOULARDII 250 MG CAPSULE PO ×2 (09:33→17:16)
[2021-02-26] MEDS: TICAGRELOR 90 MG TABLET PO ×2 (09:33→20:41)
[2021-02-26] MEDS: ISOSORBIDE MONONITRATE 10 MG TABLET PO ×2 (09:33→17:15)
[2021-02-26] MEDS: LORATADINE 10 MG TABLET PO (09:33)
[2021-02-26] MEDS: METOPROLOL TARTRATE 12.5 MG TABLET PO ×2 (09:33→20:41)
[2021-02-26] MEDS: FUROSEMIDE 20 MG TABLET PO (09:33)
--- NOTE | 2021-02-26 11:52 | P.PNIM_ITS ---
Progress Note: A&P Assessment and Plan (1) Chronic diastolic CHF (congestive heart failure): Code(s): I50.32 - Chronic diastolic (congestive) heart failure Status: Acute Assessment and Plan: * Appears euvolemic and well-compensated now after recent hospitalization for CHF exacerbation. * Continue oral lasix and monitor. * Her vendette is Dr Gallagher at [facility]. (2) Anemia: Qualifiers: Anemia type: unspecified type Qualified Code(s): D64.9 - Anemia, unspecified Code(s): D64.9 - Anemia, unspecified Status: Acute Assessment and Plan: * Hgb 6.9 on Friday. Discussed with Dr Rock. Repeat H&H that afternoon showed Hgb up to 7.3 so she did not receive blood transfusion. * Hgb low but stable today. Monitor intermittently. She feels good without lightheadedness or fatigue. * Notes she had blood transfusion at [facility]. Denies black or red blood in stool. * Monitor CBC and for signs of bleeding. Continue iron supplementation. (3) Urinary tract infection: Qualifiers: Urinary tract infection type: site unspecified Hematuria presence: without hematuria Qualified Code(s): N39.0 - Urinary tract infection, site not specified Code(s): N39.0 - Urinary tract infection, site not specified Status: Resolved Assessment and Plan: * Completed antibiotics. No acute issues. (4) Acute kidney injury superimposed on chronic kidney disease: Code(s): N17.9 - Acute kidney failure, unspecified; N18.9 - Chronic kidney disease, unspe cified Status: Acute Assessment and Plan: * Cr 2.1. Monitor renal function and urine output. (5) Hypertension: Qualifiers: Hypertension type: essential hypertension Qualified Code(s): I10 - Essential (primary) hypertension Code(s): I10 - Essential (primary) hypertension Status: Chronic Assessment and Plan: * Blood pressures reviewed and are variable. Stable, on lower end this after noon. Continue her home metoprolol, amlodipine. * Monitor BP and adjust treatment as needed. (6) Atrial fibrillation: Qualifiers: Atrial fibrillation type: paroxysmal Qualified Code(s): I48.0 - Paroxysmal atrial fibrillation Code(s): I48.91 - Unspecified atrial fibrillation Status: Chronic Assessment and Plan: * Rate controlled on home metoprolol. Continue Brilinta and aspirin. (7) Diabetes mellitus: Qualifiers: Diabetes mellitus type: type 2 Diabetes mellitus termite control representative insulin use: with termite control representative use Diabetes mellitus complication status: with neurologic complications Diabetes mellitus complication detail: with unspecified neuropathy Qualified Code(s): E11.40 - Type 2 diabetes mellitus with diabetic neuropathy, unspecified; Z79.4 - terminal makeup operator (current) use of insulin Code(s): E11.9 - Type 2 diabetes mellitus without complications Status: Chronic Assessment and Plan: * Hgb A1c 7.3%. Continue Lantus. Blood sugars are well-controlled. Continue a diabetic diet. * Continue to monitor with accu-cheks and adjust treatment as needed. Add sliding scale insulin with Novolog if blood sugars increase. (8) Dysphagia, pharyngoesophageal: Code(s): R13.14 - Dysphagia, pharyngoesophageal phase Status: Acute Assessment a
--- NOTE | 2021-02-26 11:52 | PM.IMPN ---
Progress Note: A&P Assessment and Plan (1) Chronic diastolic CHF (congestive heart failure): Code(s): I50.32 - Chronic diastolic (congestive) heart failure Status: Acute Assessment and Plan: Appears euvolemic and well-compensated now after recent hospitalization for CHF exacerbation. Continue oral lasix and monitor. Her labourers is Dr Gallagher at [facility]. (2) Anemia: Qualifiers: Anemia type: unspecified type Qualified Code(s): D64.9 - Anemia, unspecified Code(s): D64.9 - Anemia, unspecified Status: Acute Assessment and Plan: Hgb 6.9 on Friday. Discussed with Dr Rock. Repeat H&H that afternoon showed Hgb up to 7.3 so she did not receive blood transfusion. Hgb low but stable today. Monitor intermittently. She feels good without lightheadedness or fatigue. Notes she had blood transfusion at [facility]. Denies black or red blood in stool. Monitor CBC and for signs of bleeding. Continue iron supplementation. (3) Urinary tract infection: Qualifiers: Urinary tract infection type: site unspecified Hematuria presence: without hematuria Qualified Code(s): N39.0 - Urinary tract infection, site not specified Code(s): N39.0 - Urinary tract infection, site not specified Status: Resolved Assessment and Plan: Completed antibiotics. No acute issues. (4) Acute kidney injury superimposed on chronic kidney disease: Code(s): N17.9 - Acute kidney failure, unspecified; N18.9 - Chronic kidney disease, unspecified Status: Acute Assessment and Plan: Cr 2.1. Monitor renal function and urine output. (5) Hypertension: Qualifiers: Hypertension type: essential hypertension Qualified Code(s): I10 - Essential (primary) hypertension Code(s): I10 - Essential (primary) hypertension Status: Chronic Assessment and Plan: Blood pressures reviewed and are variable. Stable, on lower end this afternoon. Continue her home metoprolol, amlodipine. Monitor BP and adjust treatment as needed. (6) Atrial fibrillation: Qualifiers: Atrial fibrillation type: paroxysmal Qualified Code(s): I48.0 - Paroxysmal atrial fibrillation Code(s): I48.91 - Unspecified atrial fibrillation Status: Chronic Assessment and Plan: Rate controlled on home metoprolol. Continue Brilinta and aspirin. (7) Diabetes mellitus: Qualifiers: Diabetes mellitus type: type 2 Diabetes mellitus termite exterminator insulin use: with termite exterminator use Diabetes mellitus complication status: with neurologic complications Diabetes mellitus complication detail: with unspecified neuropathy Qualified Code(s): E11.40 - Type 2 diabetes mellitus with diabetic neuropathy, unspecified; Z79.4 - halfway (current) use of insulin Code(s): E11.9 - Type 2 diabetes mellitus without complications Status: Chronic Assessment and Plan: Hgb A1c 7.3%. Continue Lantus. Blood sugars are well-controlled. Continue a diabetic diet. Continue to monitor with accu-cheks and adjust treatment as needed. Add sliding scale insulin with Novolog if blood sugars increase. (8) Dysphagia, pharyngoesophageal: Code(s): R13.14 - Dysphagia, pharyngoesophageal phase Status: Acute Assessment and Plan: Current diet is minced/moist with mildly thickened liquids. Continue ST. (9) Peripheral vascular disease: Code(s): I73.9 - Peripheral vascular disease, unspecified Status: Chronic Assessment and Plan: Patient reports multiple vascular procedures to right leg in the past including stents an
[2021-02-26 11:56] LABS: Glucose Point of Care 148 mg/dl (65-105)
[2021-02-26 14:00] VITALS: BP 117/46; PULSE 58; RESP 14; TEMP 36.7; O2SAT 100
[2021-02-26 17:10] LABS: Glucose Point of Care 194 mg/dl (65-105)
[2021-02-26] MEDS: INSULIN GLARGINE (*BKC) 100 UNITS/ML 15 UNITS SUB-Q (19:32)
[2021-02-26 20:41] VITALS: PULSE 67
[2021-02-26] MEDS: GABAPENTIN 300 MG CAPSULE PO (20:41)
[2021-02-26 22:00] VITALS: BP 123/54; PULSE 67; RESP 18; TEMP 36.5; O2SAT 97
[2021-02-27 03:39] LABS: Glucose Point of Care 249 mg/dl (65-105)
[2021-02-27 04:55] LABS: Basophils Absolute Auto 0.1 K/mm3 (0.0-0.1); Basophils Percent Auto 0.8 % (0.2-1.2); Eosinophils Absolute Auto 0.2 K/mm3 (0-0.3); Eosinophils Percent Auto 3.6 % (0-4.4); Hematocrit 24.5 % (37.0-47.0); Hemoglobin 7.1 g/dL (12.0-15.0); Immature Granulocyte Absolute 0.05 K/mm3 (0.00-0.031); Immature Granulocyte Percent A 0.8 % (0-0.5); Lymphocytes Absolute Auto 1.32 K/mm3 (0.9-3.2); Lymphocytes Percent Auto 20.6 % (18.3-44.2); Mean Corpuscular Hemoglobin 25.4 pg (26-34); Mean Corpuscular Volume 87.5 fl (80-100); Mean Platelet Volume 11.2 fl (7.4-10.4); Monocytes Absolute Auto 0.6 K/mm3 (0.1-0.6); Monocytes Percent Auto 9.1 % (2.6-8.5); Neutrophils Absolute Auto 4.2 K/mm3 (1.3-6.7); Neutrophils Percent Auto 65.1 % (45.5-73.1); Platelet Count Result 301 k/mm3 (150-375); Red Cell Distribution Width 17.6 % (11.5-14.5); White Blood Count 6.4 K/mm3 (4.5-10.0)
[2021-02-27 05:05] LABS: Alanine Aminotransferase 10 U/L (4-35); Albumin Level 3.2 g/dL (3.5-5.1); Alkaline Phosphatase 47 U/L (38-126); Anion Gap 6 mmol/L (8-16); Aspartate Amino Transferase 24 U/L (14-36); Bilirubin,Total 0.2 mg/dL (0.2-1.3); Blood Urea Nitrogen 33 mg/dL (7-17); Calcium 9.4 mg/dL (8.4-10.2); Carbon Dioxide 26 mmol/L (22-30); Chloride 106 mmol/L (98-107); Estimated CRCL calculation 20 ml/min; Estimated Glomerular Filt Rate 24; Glucose 116 mg/dL (65-105); Potassium 3.8 mmol/L (3.4-5.0); Sodium 138 mmol/L (137-145)
[2021-02-27 05:22] LABS: Glucose Point of Care 111 mg/dl (65-105)
[2021-02-27 06:00] VITALS: BP 142/51; PULSE 58; RESP 18; TEMP 36.5; O2SAT 95
[2021-02-27 06:09] LABS: Anisocytosis 1+ (NORMAL); Hypochromasia 1+ (NORMAL); Platelet Estimate Adequate (Adequate)
[2021-02-27] MEDS: FLUTICASONE/SALMETEROL 115-21 MCG (*SP) INHALER 2 PUFF INHALATION ×2 (08:38→20:46)
[2021-02-27 08:40] VITALS: PULSE 58
[2021-02-27] MEDS: SACCHAROMYCES BOULARDII 250 MG CAPSULE PO (08:40)
[2021-02-27] MEDS: VENLAFAXINE HCL 25 MG TABLET PO ×2 (08:40→17:55)
[2021-02-27] MEDS: FLUoxetine HCL 20 MG CAPSULE 40 MG PO (08:40)
[2021-02-27] MEDS: TICAGRELOR 90 MG TABLET PO ×2 (08:40→20:46)
[2021-02-27] MEDS: LORATADINE 10 MG TABLET PO (08:40)
[2021-02-27] MEDS: buPROPion HCL 75 MG TABLET PO ×2 (08:40→17:55)
[2021-02-27] MEDS: FERROUS SULFATE 324 MG TABLET PO (08:40)
[2021-02-27] MEDS: ASPIRIN 81 MG CHEWABLE TABLET PO (08:40)
[2021-02-27] MEDS: METOPROLOL TARTRATE 12.5 MG TABLET PO ×2 (08:40→20:45)
[2021-02-27] MEDS: FUROSEMIDE 20 MG TABLET PO (08:40)
[2021-02-27] MEDS: amLODIPine BESYLATE 5 MG TABLET PO (08:40)
[2021-02-27] MEDS: ISOSORBIDE MONONITRATE 10 MG TABLET PO ×2 (08:40→17:55)
[2021-02-27] MEDS: FAMOTIDINE 20 MG TABLET 40 MG PO (08:41)
[2021-02-27] MEDS: FENOFIBRATE NANOCRYSTALLIZED 145 MG TABLET PO (08:41)
--- NOTE | 2021-02-27 11:33 | WPDNEURORHBP ---
Subjective Date/time seen: 02/27/21 11:33 Interval history: Diagnosis: acute on chronic congestive heart failure with acute on chronic kidney disease The patient is a 75-year-old female past medical history of JASON, AFib, coronary artery disease, depression, diabetes, dyspnea on exertion, GERD, peripheral vascular disease and hypertension who initially presented to [facility] from 01/23-2020 for pneumonia. Patient was discharged on 02/03 and readmitted on 02/04 with congestive heart failure, left pleural effusion and mild pulmonary edema. Patient was placed on Solu-Medrol and nebulizers. D-dimer was elevated but CT could not be performed due to acute kidney injury. The patient was transferred to [facility] on 02/04/2021 per family's request. Patient was found to be in acute congestive heart failure requiring IV Lasix, and diagnosed with acute cystitis and UTI with IV cefoxitin for 5-7 days starting on 02/16/2021. Modified barium swallow showed pharyngeal esophageal dysphagia. Patient was placed on a pureed diet with thin liquids. Patient is to follow with Dr. Bergeron, ENT. Acute kidney injury was resolving with down trending lab values. Diuretics were used judiciously. H and H continue to down trend without clinical signs of bleeding or symptoms Therapy was initiated at the acute care facility and the patient transferred to us from [facility] on 02/19/2021 02/21/21 Alesha complains of loose stools. She has been on IV antibiotics off and on for the last few weeks for treatments of pneumonia and urinary tract infection. Stool softeners will be changed to p.r.n.. Patient will be started on Florastor. Patient has difficulty swallowing pills whole. Currently, pills are being crushed. Patient will be advanced to minced and moist diet. to bring in home meds. Patient with polypharmacy. 02/22/21 Patient having difficulties with liquids and cream of wheat. Speech therapist is aware. Speech therapist will test pureed diet and nectar thick liquids again. Patient denies any other complaints. 02/23/21 Morning blood work revealed hemoglobin of 6.9. A repeat hemoglobin will be performed later today with hospitalists making the decision if patient requires blood transfusion. Patient voices no complaints. Patient feels that she is back to her baseline. Patient does not feel fatigued or weak. Appreciate hospitalist input. 02/26/2021. Patient seen with occupational therapy during bathing activity. Patient denies any complaints. Patient denies any shortness of breath or chest pain. Patient feels that she is getting stronger. Nursing reported that patient was unsteady and at times impulsive over the weekend. Case Management will set up family training with daughter and . Patient is on nectar thick liquid. Patient lacks insight into deficits. 02/27/21 Florastor has been discontinued. Diarrhea has been resolved. Spoke with Dr Felix [phone] regarding polypharmacy . He suggested to discontinue Fish Oil and attempt to lower Neurontin. Patient is in agreement to lower Neurontin dose. Patient stated that she had peripheral neuropathy everywhere and now she has no pain. Team Conference: Patient is continent of bowel and bladder. Patient is on a diabetic minced and moist diet with nectar thick liquids. Patient remains anticoagulated with aspirin 81 mg daily and Brilinta. Patient is on Lantus 15 units at bedtime. Hemoglobin and hematocrit hover around 7. Patient has no clinical symptoms of lightheadedness. BUN and creatinine reveal acute on chronic kidney disease. Appetite is good. Patient does complain of thickened liquids. Unfortunately, patient does not do well with mixed textured foods. Patient tends to cough with thin liquids with varying consistencies of food. Medications are being crushed in applesauce. Patient is to have no straws. Patient tends to shovel food in mouth and becomes distracted. Rehab:
[2021-02-27 11:55] LABS: Glucose Point of Care 153 mg/dl (65-105)
--- NOTE | 2021-02-27 13:15 | PCPTNOTE ---
Alesha Leo was evaluated for a 2WW on 02/27/2021 by this physical therapist. The 2WW will resolve patient's mobility limitations and will be used for ADL's within the home. The patient can safely use the 2WW. ?The 2WW will resolve the patient?s mobility deficits, including balance deficits and decreased endurance.
[2021-02-27 13:37] VITALS: BP 146/56; PULSE 69; RESP 18; TEMP 36.5; O2SAT 99
--- NOTE | 2021-02-27 15:09 | PM.IMPN ---
Progress Note: A&P Assessment and Plan (1) Chronic diastolic CHF (congestive heart failure): Code(s): I50.32 - Chronic diastolic (congestive) heart failure Status: Acute Assessment and Plan: Pt has mild edema but states she 'always has that' -She has has CKD and ran into issues with IV diuresis at [facility] -I would recommend continuing current treatment knowing she may have a little swelling and a little renal insufficiency as this will be a hard balance -Continue oral lasix and monitor. -Her head of store operations is Dr Gallagher at [facility]. -Echo from [facility] showed normal EF with mild mitral regurg (2) Anemia: Qualifiers: Anemia type: unspecified type Qualified Code(s): D64.9 - Anemia, unspecified Code(s): D64.9 - Anemia, unspecified Status: Acute Assessment and Plan: Hgb 7.1 today with no evidence of bleeding - last colonoscopy was a couple years ago by Dr. Boston with no known issues according to her -She denies menstrual bleeding or bloody/dark stools -She was iron deficient at [facility], continue with that -recommend f/u with GI, stool occult ordered (3) Urinary tract infection: Qualifiers: Urinary tract infection type: site unspecified Hematuria presence: without hematuria Qualified Code(s): N39.0 - Urinary tract infection, site not specified Code(s): N39.0 - Urinary tract infection, site not specified Status: Resolved Assessment and Plan: Resolved. -Completed antibiotics. No acute issues. _ (4) Acute kidney injury superimposed on chronic kidney disease: Code(s): N17.9 - Acute kidney failure, unspecified; N18.9 - Chronic kidney disease, unspecified Status: Acute Assessment and Plan: Cr 2.0 -Pt states she has stage 3 kidney disease -[facility] records states her baseline is 1.2 -No symptoms of UTI or retention -She may run higher due to her CKD and lasix use but she is also fluid overloaded. -No suggestive changes for now, if her Cr worsens, may need to adjust lasix to every other day (5) Hypertension: Qualifiers: Hypertension type: essential hypertension Qualified Code(s): I10 - Essential (primary) hypertension Code(s): I10 - Essential (primary) hypertension Status: Chronic Assessment and Plan: Last bp 146/56 -continue her home metoprolol, amlodipine. (6) Atrial fibrillation: Qualifiers: Atrial fibrillation type: paroxysmal Qualified Code(s): I48.0 - Paroxysmal atrial fibrillation Code(s): I48.91 - Unspecified atrial fibrillation Status: Chronic Assessment and Plan: Appeared to be in NSR for me on exam. Continue Metoprolol. Not on AC (7) Diabetes mellitus: Qualifiers: Diabetes mellitus type: type 2 Diabetes mellitus shelter insulin use: with terminal computer operator use Diabetes mellitus complication status: with neurologic complications Diabetes mellitus complication detail: with unspecified neuropathy Qualified Code(s): E11.40 - Type 2 diabetes mellitus with diabetic neuropathy, unspecified; Z79.4 - terminal system operator (current) use of insulin Code(s): E11.9 - Type 2 diabetes mellitus without complications Status: Chronic Assessment and Plan: Last glucose 153 -Continue lantus 15u Hgb A1c 7.3%. Continue Lantus. Blood sugars are well-controlled. Continue a diabetic diet. (8) Dysphagia, pharyngoesophageal: Code(s): R13.14 - Dysphagia, pharyngoesophageal phase Status: Acute Assessment and Plan: Due to cricopharyngeal cartilage narrowing -She is to follow up with Dr. Bergeron after d/c -Current diet is minced/moist with mildly thickened liquids. -Continue ST. (9) Peripheral vascular disease: Code(s): I73.9 - Peripheral vascular disease, unspecified Status: Chronic Assessment and Plan: Patient reports multiple vascular procedures to right leg in the past including stents and bypas
--- NOTE | 2021-02-27 17:32 | PC.NURSE ---
stool collected for Occult Blood and carried to lab, called Roxie and reported stool appearance- clear, jelly like. left message at this time
[2021-02-27 20:35] LABS: IFOB Positive Control Positive; Immunochemical Fecal Occult Bl Negative (N)
[2021-02-27] MEDS: GABAPENTIN 100 MG CAPSULE 200 MG PO (20:46)
[2021-02-27 21:45] LABS: Glucose Point of Care 169 mg/dl (65-105)
[2021-02-27 21:46] LABS: Glucose Point of Care 189 mg/dl (65-105)
[2021-02-27 22:00] VITALS: BP 162/42; PULSE 57; RESP 18; TEMP 36.7; O2SAT 97
[2021-02-27] MEDS: INSULIN GLARGINE (*BKC) 100 UNITS/ML 15 UNITS SUB-Q (22:27)
[2021-02-28 05:39] LABS: Hematocrit 24.9 % (37.0-47.0); Hemoglobin 7.4 g/dL (12.0-15.0)
[2021-02-28 05:46] LABS: Anion Gap 7 mmol/L (8-16); Blood Urea Nitrogen 34 mg/dL (7-17); Calcium 9.7 mg/dL (8.4-10.2); Carbon Dioxide 25 mmol/L (22-30); Chloride 106 mmol/L (98-107); Estimated CRCL calculation 22 ml/min; Estimated Glomerular Filt Rate 27; Glucose 102 mg/dL (65-105); Potassium 3.3 mmol/L (3.4-5.0); Sodium 138 mmol/L (137-145)
[2021-02-28 06:00] VITALS: BP 132/41; PULSE 60; RESP 18; TEMP 36.6; O2SAT 96
[2021-02-28 06:41] LABS: Glucose Point of Care 115 mg/dl (65-105)
[2021-02-28 07:32] VITALS: BP 160/52; PULSE 57; RESP 20; TEMP 36.6; O2SAT 97
[2021-02-28 08:38] VITALS: PULSE 57
[2021-02-28] MEDS: METOPROLOL TARTRATE 12.5 MG TABLET PO ×2 (08:38→20:37)
[2021-02-28] MEDS: LORATADINE 10 MG TABLET PO (08:38)
[2021-02-28] MEDS: FAMOTIDINE 20 MG TABLET 40 MG PO (08:38)
[2021-02-28] MEDS: FERROUS SULFATE 324 MG TABLET PO (08:38)
[2021-02-28] MEDS: VENLAFAXINE HCL 25 MG TABLET PO ×2 (08:38→16:32)
[2021-02-28] MEDS: buPROPion HCL 75 MG TABLET PO ×2 (08:38→16:32)
[2021-02-28] MEDS: ISOSORBIDE MONONITRATE 10 MG TABLET PO ×2 (08:38→16:32)
[2021-02-28] MEDS: ATORVASTATIN 40 MG TABLET 80 MG PO (08:38)
[2021-02-28] MEDS: FLUTICASONE/SALMETEROL 115-21 MCG (*SP) INHALER 2 PUFF INHALATION ×2 (08:39→20:38)
[2021-02-28] MEDS: ASPIRIN 81 MG CHEWABLE TABLET PO (08:39)
[2021-02-28] MEDS: FENOFIBRATE NANOCRYSTALLIZED 145 MG TABLET PO (08:39)
[2021-02-28] MEDS: FUROSEMIDE 20 MG TABLET PO (08:39)
[2021-02-28] MEDS: TICAGRELOR 90 MG TABLET PO ×2 (08:39→20:37)
[2021-02-28] MEDS: amLODIPine BESYLATE 5 MG TABLET PO (08:39)
[2021-02-28] MEDS: FLUoxetine HCL 20 MG CAPSULE 40 MG PO (08:39)
--- NOTE | 2021-02-28 09:19 | PCPTNOTE ---
Romina Purcell PTA completed an inpatient rehab wheelchair evaluation on Alesha Leo on 02/28/2021. The patient is unable to safely and independently ambulate household distances due to their current impairments. Their diagnosis is Acute CHF and their impairments include decreased strength, decreased endurance, decreased range of motion, decreased balance and lower extremity weakness. Alesha's weight bearing status is weight-bearing as tolerated on the bilateral lower legs. The patient demonstrates significant functional mobility limitations that impair their ability to participate in mobility-related activities of daily living (MRADLs), including toileting, feeding, dressing, grooming, and bathing in the customary locations in the home. These limitations cannot be sufficiently resolved by the use of an appropriately fitted cane or walker. It is recommended that the patient utilize a wheelchair for functional mobility within the home in order to facilitate optimal safety, independence and participation in all MRADL's and adequately access their home environment on a regular basis. The patient's home provides adequate access between rooms, maneuvering space, and surfaces to accommodate the recommended wheelchair. The use of a wheelchair for functional mobility is strongly recommended and the patient is receptive to using the wheelchair. The use of this wheelchair will significantly improve the patient's ability to participate in MRADLS and the patient will use it on a regular basis in the home. This will facilitate optimal safety, independence, and participation. The patient has demonstrated sufficient physical and mental capabilities needed to safely propel a manual wheelchair that is provided in the home during a typical day. Recommended Wheelchair Frame: 18x16 Recommended Wheelchair Size: Standard Recommended Wheelchair Cushion:Standard Wheelchair Leg Recommendations: Swing Away - Anti-tippers are recommended due to patient demonstrating increased risk for falls. They would benefit from anti-tippers with added safety and stabilization. Romina Binh SEGURA 02/28/2021 Evaluating Therapist Date I agree with and certify that the above recommendation is medically necessary. Referring Physician Date I agree with and certify that the above recommendation is medically necessary. Referring Physician Date
--- NOTE | 2021-02-28 09:49 | WPDNEURORHBP ---
Subjective Date/time seen: 02/28/21 09:49 Interval history: Diagnosis: acute on chronic congestive heart failure with acute on chronic kidney disease The patient is a 75-year-old female past medical history of JASON, AFib, coronary artery disease, depression, diabetes, dyspnea on exertion, GERD, peripheral vascular disease and hypertension who initially presented to [facility] from 01/23-2020 for pneumonia. Patient was discharged on 02/03 and readmitted on 02/04 with congestive heart failure, left pleural effusion and mild pulmonary edema. Patient was placed on Solu-Medrol and nebulizers. D-dimer was elevated but CT could not be performed due to acute kidney injury. The patient was transferred to [facility] on 02/04/2021 per family's request. Patient was found to be in acute congestive heart failure requiring IV Lasix, and diagnosed with acute cystitis and UTI with IV cefoxitin for 5-7 days starting on 02/16/2021. Modified barium swallow showed pharyngeal esophageal dysphagia. Patient was placed on a pureed diet with thin liquids. Patient is to follow with Dr. Bergeron, ENT. Acute kidney injury was resolving with down trending lab values. Diuretics were used judiciously. H and H continue to down trend without clinical signs of bleeding or symptoms Therapy was initiated at the acute care facility and the patient transferred to us from [facility] on 02/19/2021 02/21/21 Alesha complains of loose stools. She has been on IV antibiotics off and on for the last few weeks for treatments of pneumonia and urinary tract infection. Stool softeners will be changed to p.r.n.. Patient will be started on Florastor. Patient has difficulty swallowing pills whole. Currently, pills are being crushed. Patient will be advanced to minced and moist diet. to bring in home meds. Patient with polypharmacy. 02/22/21 Patient having difficulties with liquids and cream of wheat. Speech therapist is aware. Speech therapist will test pureed diet and nectar thick liquids again. Patient denies any other complaints. 02/23/21 Morning blood work revealed hemoglobin of 6.9. A repeat hemoglobin will be performed later today with hospitalists making the decision if patient requires blood transfusion. Patient voices no complaints. Patient feels that she is back to her baseline. Patient does not feel fatigued or weak. Appreciate hospitalist input. 02/26/2021. Patient seen with occupational therapy during bathing activity. Patient denies any complaints. Patient denies any shortness of breath or chest pain. Patient feels that she is getting stronger. Nursing reported that patient was unsteady and at times impulsive over the weekend. Case Management will set up family training with daughter and . Patient is on nectar thick liquid. Patient lacks insight into deficits. 02/27/21 Florastor has been discontinued. Diarrhea has been resolved. Spoke with Dr Felix [phone] regarding polypharmacy . He suggested to discontinue Fish Oil and attempt to lower Neurontin. Patient is in agreement to lower Neurontin dose. Patient stated that she had peripheral neuropathy everywhere and now she has no pain. Team Conference: Patient is continent of bowel and bladder. Patient is on a diabetic minced and moist diet with nectar thick liquids. Patient remains anticoagulated with aspirin 81 mg daily and Brilinta. Patient is on Lantus 15 units at bedtime. Hemoglobin and hematocrit hover around 7. Patient has no clinical symptoms of lightheadedness. BUN and creatinine reveal acute on chronic kidney disease. Appetite is good. Patient does complain of thickened liquids. Unfortunately, patient does not do well with mixed textured foods. Patient tends to cough with thin liquids with varying consistencies of food. Medications are being crushed in applesauce. Patient is to have no straws. Patient tends to shovel food in mouth and becomes distracted. Rehab:
--- NOTE | 2021-02-28 11:43 | PCNFU ---
Nutrition Follow-Up Complete: Nutrition Diagnosis: Inadequate oral intake related to CHF as evidenced by weight loss of 15lbs within one month. Nutrition Goal: Have patient meet estimated nutritional needs. Goal has been met, patient is consuming 100% of meals/supplements Nutrition recommendation: Continue with Diabetic Consistent Carbohydrate, Level 2 thickened liquids, and level 5 minced and moist. Continue with Glucerna Shake (220 calories and 10 grams of protein) TID. Last recorded weight is 74.3 kg. Recommend obtaining new weight. Bowel Motility: Last documented on 02/28. Labs Reviewed: Hgb(7.4), Hct(24.9), K(3.3), GFR(27), BUN(34), Cr(1.8) Meds Noted: Albuterol, Norvasc, Lipitor, Wellbutrin, Drisdol, Pepcid, Prozac, Lasix, Lantus, Zofran, Lopressor, Ferrous Sulfate, Tricor, Effexor, Ticagrelor, Florastor, Fluticasone, Nitroglycerin Additional Notes: Potassium was replaced earlier today 02/28. Agree with diet orders. Patient's appetite is better and she is consuming now 100% of her meals. Glucerna supplement is going well, patient understands she needs those nutrients to regain strength. Will follow up in 5 days.
--- NOTE | 2021-02-28 13:21 | PCNSR ---
On 02/28/21, the student, Nette Abdi, provided care and completed [employer] documentation on this patient. I have reviewed the student's documentation and agree with the findings, other than to add that Glucerna Shake is being provided 1x daily instead of 3x as previously documented.
[2021-02-28 14:00] VITALS: BP 130/51; PULSE 62; RESP 18; TEMP 36.8; O2SAT 97
[2021-02-28] MEDS: POTASSIUM CHLORIDE 20 MEQ TABLET 40 MEQ PO (14:40)
[2021-02-28] MEDS: SACCHAROMYCES BOULARDII 250 MG CAPSULE PO ×2 (14:40→16:32)
[2021-02-28 16:46] LABS: Glucose Point of Care 143 mg/dl (65-105)
[2021-02-28 16:46] LABS: Glucose Point of Care 114 mg/dl (65-105)
[2021-02-28 20:37] VITALS: PULSE 68
[2021-02-28] MEDS: INSULIN GLARGINE (*BKC) 100 UNITS/ML 15 UNITS SUB-Q (21:22)
[2021-02-28 21:52] LABS: Glucose Point of Care 132 mg/dl (65-105)
[2021-02-28 22:00] VITALS: BP 153/58; PULSE 62; RESP 18; TEMP 36.8; O2SAT 96
[2021-03-01 06:00] VITALS: BP 165/47; PULSE 61; RESP 20; TEMP 36.7; O2SAT 97
[2021-03-01 06:12] LABS: Glucose Point of Care 80 mg/dl (65-105)
[2021-03-01] MEDS: ONDANSETRON HCL ODT 4 MG TABLET PO ×2 (06:43→23:35)
[2021-03-01 08:00] VITALS: PULSE 61; RESP 20; O2SAT 97
[2021-03-01 08:09] LABS: Anion Gap 7 mmol/L (8-16); Blood Urea Nitrogen 26 mg/dL (7-17); Calcium 9.8 mg/dL (8.4-10.2); Carbon Dioxide 24 mmol/L (22-30); Chloride 108 mmol/L (98-107); Estimated CRCL calculation 21 ml/min; Estimated Glomerular Filt Rate 26; Glucose 95 mg/dL (65-105); Potassium 3.7 mmol/L (3.4-5.0); Sodium 139 mmol/L (137-145)
[2021-03-01 09:18] VITALS: PULSE 61
[2021-03-01] MEDS: VENLAFAXINE HCL 25 MG TABLET PO ×2 (09:18→17:20)
[2021-03-01] MEDS: ASPIRIN 81 MG CHEWABLE TABLET PO (09:18)
[2021-03-01] MEDS: FENOFIBRATE NANOCRYSTALLIZED 145 MG TABLET PO (09:18)
[2021-03-01] MEDS: METOPROLOL TARTRATE 12.5 MG TABLET PO ×2 (09:18→20:36)
[2021-03-01] MEDS: TICAGRELOR 90 MG TABLET PO ×2 (09:18→20:37)
[2021-03-01] MEDS: FERROUS SULFATE 324 MG TABLET PO (09:18)
[2021-03-01] MEDS: FUROSEMIDE 20 MG TABLET PO (09:18)
[2021-03-01] MEDS: FAMOTIDINE 20 MG TABLET 40 MG PO (09:18)
[2021-03-01] MEDS: buPROPion HCL 75 MG TABLET PO ×2 (09:18→17:19)
[2021-03-01] MEDS: ISOSORBIDE MONONITRATE 10 MG TABLET PO ×2 (09:19→17:19)
[2021-03-01] MEDS: FLUoxetine HCL 20 MG CAPSULE 40 MG PO (09:19)
[2021-03-01] MEDS: FLUTICASONE/SALMETEROL 115-21 MCG (*SP) INHALER 2 PUFF INHALATION ×2 (09:19→20:34)
[2021-03-01] MEDS: LORATADINE 10 MG TABLET PO (09:19)
[2021-03-01] MEDS: SACCHAROMYCES BOULARDII 250 MG CAPSULE PO ×2 (09:19→17:19)
[2021-03-01] MEDS: amLODIPine BESYLATE 5 MG TABLET 10 MG PO (09:20)
--- NOTE | 2021-03-01 10:12 | WPDNEURORHBP ---
Subjective Date/time seen: 03/01/21 10:12 Interval history: Diagnosis: acute on chronic congestive heart failure with acute on chronic kidney disease The patient is a 75-year-old female past medical history of JASON, AFib, coronary artery disease, depression, diabetes, dyspnea on exertion, GERD, peripheral vascular disease and hypertension who initially presented to [facility] from 01/23-2020 for pneumonia. Patient was discharged on 02/03 and readmitted on 02/04 with congestive heart failure, left pleural effusion and mild pulmonary edema. Patient was placed on Solu-Medrol and nebulizers. D-dimer was elevated but CT could not be performed due to acute kidney injury. The patient was transferred to [facility] on 02/04/2021 per family's request. Patient was found to be in acute congestive heart failure requiring IV Lasix, and diagnosed with acute cystitis and UTI with IV cefoxitin for 5-7 days starting on 02/16/2021. Modified barium swallow showed pharyngeal esophageal dysphagia. Patient was placed on a pureed diet with thin liquids. Patient is to follow with Dr. Begreron, ENT. Acute kidney injury was resolving with down trending lab values. Diuretics were used judiciously. H and H continue to down trend without clinical signs of bleeding or symptoms Therapy was initiated at the acute care facility and the patient transferred to us from [facility] on 02/19/2021 02/21/21 Alesha complains of loose stools. She has been on IV antibiotics off and on for the last few weeks for treatments of pneumonia and urinary tract infection. Stool softeners will be changed to p.r.n.. Patient will be started on Florastor. Patient has difficulty swallowing pills whole. Currently, pills are being crushed. Patient will be advanced to minced and moist diet. to bring in home meds. Patient with polypharmacy. 02/22/21 Patient having difficulties with liquids and cream of wheat. Speech therapist is aware. Speech therapist will test pureed diet and nectar thick liquids again. Patient denies any other complaints. 02/23/21 Morning blood work revealed hemoglobin of 6.9. A repeat hemoglobin will be performed later today with hospitalists making the decision if patient requires blood transfusion. Patient voices no complaints. Patient feels that she is back to her baseline. Patient does not feel fatigued or weak. Appreciate hospitalist input. 02/26/2021. Patient seen with occupational therapy during bathing activity. Patient denies any complaints. Patient denies any shortness of breath or chest pain. Patient feels that she is getting stronger. Nursing reported that patient was unsteady and at times impulsive over the weekend. Case Management will set up family training with daughter and . Patient is on nectar thick liquid. Patient lacks insight into deficits. 02/27/21 Florastor has been discontinued. Diarrhea has been resolved. Spoke with Dr Felix [phone] regarding polypharmacy . He suggested to discontinue Fish Oil and attempt to lower Neurontin. Patient is in agreement to lower Neurontin dose. Patient stated that she had peripheral neuropathy everywhere and now she has no pain. Team Conference: Patient is continent of bowel and bladder. Patient is on a diabetic minced and moist diet with nectar thick liquids. Patient remains anticoagulated with aspirin 81 mg daily and Brilinta. Patient is on Lantus 15 units at bedtime. Hemoglobin and hematocrit hover around 7. Patient has no clinical symptoms of lightheadedness. BUN and creatinine reveal acute on chronic kidney disease. Appetite is good. Patient does complain of thickened liquids. Unfortunately, patient does not do well with mixed textured foods. Patient tends to cough with thin liquids with varying consistencies of food. Medications are being crushed in applesauce. Patient is to have no straws. Patient tends to shovel food in mouth and becomes distracted. Rehab:
[2021-03-01 12:02] LABS: Glucose Point of Care 130 mg/dl (65-105)
--- NOTE | 2021-03-01 13:40 | PM.IMPN ---
Progress Note: A&P Assessment and Plan (1) Chronic diastolic CHF (congestive heart failure): Code(s): I50.32 - Chronic diastolic (congestive) heart failure Status: Acute Assessment and Plan: Pt has mild edema but states she 'always has that' -She has has CKD and ran into issues with IV diuresis at [facility] -I would recommend continuing current treatment knowing she may have a little swelling and a little renal insufficiency as this will be a hard balance -Continue oral lasix and monitor. -Her combination presser is Dr Gallagher at [facility]. -Echo from [facility] showed normal EF with mild mitral regurg (2) Anemia: Qualifiers: Anemia type: unspecified type Qualified Code(s): D64.9 - Anemia, unspecified Code(s): D64.9 - Anemia, unspecified Status: Acute Assessment and Plan: Last Hgb 7.4 - last colonoscopy was a couple years ago by Dr. Boston with no known issues according to her -She denies menstrual bleeding or bloody/dark stools -stool occult blood test negative -She was iron deficient at [facility], continue with that -recommend f/u with GI (3) Urinary tract infection: Qualifiers: Urinary tract infection type: site unspecified Hematuria presence: without hematuria Qualified Code(s): N39.0 - Urinary tract infection, site not specified Code(s): N39.0 - Urinary tract infection, site not specified Status: Resolved Assessment and Plan: Resolved. -Completed antibiotics. No acute issues. (4) Acute kidney injury superimposed on chronic kidney disease: Code(s): N17.9 - Acute kidney failure, unspecified; N18.9 - Chronic kidney disease, unspecified Status: Acute Assessment and Plan: Cr 1.9 -Pt states she has stage 3 kidney disease -[facility] records states her baseline is 1.2 but she had elevated Cr there as well -No symptoms of UTI or retention -She may run higher due to her CKD and lasix use (5) Hypertension: Qualifiers: Hypertension type: essential hypertension Qualified Code(s): I10 - Essential (primary) hypertension Code(s): I10 - Essential (primary) hypertension Status: Chronic Assessment and Plan: Last bp 315/47 -continue her home metoprolol and amlodipine (increased today). (6) Atrial fibrillation: Qualifiers: Atrial fibrillation type: paroxysmal Qualified Code(s): I48.0 - Paroxysmal atrial fibrillation Code(s): I48.91 - Unspecified atrial fibrillation Status: Chronic Assessment and Plan: Appeared to be in NSR for me on exam. Continue Metoprolol. Not on AC (7) Diabetes mellitus: Qualifiers: Diabetes mellitus type: type 2 Diabetes mellitus watermaster insulin use: with watermaster use Diabetes mellitus complication status: with neurologic complications Diabetes mellitus complication detail: with unspecified neuropathy Qualified Code(s): E11.40 - Type 2 diabetes mellitus with diabetic neuropathy, unspecified; Z79.4 - nursing home (current) use of insulin Code(s): E11.9 - Type 2 diabetes mellitus without complications Status: Chronic Assessment and Plan: Last glucose 130 -Adjust lantus to 12 u daily while here in the hospital but continue 15u at home (diet more strictly controlled here) Hgb A1c 7.3%. Continue Lantus. Blood sugars are well-controlled. Continue a diabetic diet. (8) Dysphagia, pharyngoesophageal: Code(s): R13.14 - Dysphagia, pharyngoesophageal phase Status: Acute Assessment and Plan: Due to cricopharyngeal cartilage narrowing -She is to follow up with Dr. Bergeron after d/c -Current diet is minced/moist with mildly thickened liquids. -Continue ST. (9) Peripheral vascular disease: Code(s): I73.9 - Peripheral vascular disease, unspecified Status: Chronic Assessment and Plan: Patient reports multiple vascular procedures to right leg in the past including stents a
[2021-03-01 14:00] VITALS: BP 135/54; PULSE 60; RESP 18; TEMP 36.2; O2SAT 96
[2021-03-01 16:53] LABS: Glucose Point of Care 136 mg/dl (65-105)
[2021-03-01 19:37] LABS: Glucose Point of Care 128 mg/dl (65-105)
[2021-03-01] MEDS: INSULIN GLARGINE (*BKC) 100 UNITS/ML 12 UNITS SUB-Q (20:35)
[2021-03-01 20:36] VITALS: PULSE 66
[2021-03-01 22:00] VITALS: BP 143/84; PULSE 59; RESP 20; TEMP 36.3; O2SAT 97
[2021-03-02 06:00] VITALS: BP 166/54; PULSE 64; RESP 18; TEMP 36.3; O2SAT 96
[2021-03-02 06:31] LABS: Glucose Point of Care 87 mg/dl (65-105)
[2021-03-02 08:00] VITALS: PULSE 64; RESP 18; O2SAT 96
[2021-03-02 08:47] VITALS: PULSE 64
[2021-03-02] MEDS: TICAGRELOR 90 MG TABLET PO (08:47)
[2021-03-02] MEDS: amLODIPine BESYLATE 5 MG TABLET 10 MG PO (08:47)
[2021-03-02] MEDS: METOPROLOL TARTRATE 12.5 MG TABLET PO (08:47)
[2021-03-02] MEDS: VENLAFAXINE HCL 25 MG TABLET PO (08:47)
[2021-03-02] MEDS: FERROUS SULFATE 324 MG TABLET PO (08:48)
[2021-03-02] MEDS: ATORVASTATIN 40 MG TABLET 80 MG PO (08:48)
[2021-03-02] MEDS: buPROPion HCL 75 MG TABLET PO (08:48)
[2021-03-02] MEDS: FUROSEMIDE 20 MG TABLET PO (08:48)
[2021-03-02] MEDS: FLUoxetine HCL 20 MG CAPSULE 40 MG PO (08:48)
[2021-03-02] MEDS: FAMOTIDINE 20 MG TABLET 40 MG PO (08:48)
[2021-03-02] MEDS: ERGOCALCIFEROL 50,000 UNIT CAPSULE 50000 UNITS PO (08:48)
[2021-03-02] MEDS: ISOSORBIDE MONONITRATE 10 MG TABLET PO (08:49)
[2021-03-02] MEDS: FENOFIBRATE NANOCRYSTALLIZED 145 MG TABLET PO (08:49)
[2021-03-02] MEDS: SACCHAROMYCES BOULARDII 250 MG CAPSULE PO (08:49)
[2021-03-02] MEDS: ASPIRIN 81 MG CHEWABLE TABLET PO (08:49)
[2021-03-02] MEDS: FLUTICASONE/SALMETEROL 115-21 MCG (*SP) INHALER 2 PUFF INHALATION (08:49)
[2021-03-02] MEDS: LORATADINE 10 MG TABLET PO (08:50)
--- NOTE | 2021-03-02 09:05 | PM.DS ---
DS: Admitting Diagnosis Admitting Diagnosis Admitting Diagnosis: Acute on chronic CHF with acute on chronic CKD DS: Discharge Diagnosis Discharge Diagnosis (1) Dyspnea on exertion: Code(s): R06.00 - Dyspnea, unspecified Status: Acute Assessment and Plan: Energy conservation techniques will be taught (2) Urinary tract infection: Qualifiers: Hematuria presence: without hematuria Urinary tract infection type: site unspecified Qualified Code(s): N39.0 - Urinary tract infection, site not specified Code(s): N39.0 - Urinary tract infection, site not specified Status: Resolved Assessment and Plan: Ceftin 500 mg Q 12. for a few days . ABX completed. White count is normal. (3) Acute kidney injury superimposed on chronic kidney disease: Code(s): N17.9 - Acute kidney failure, unspecified; N18.9 - Chronic kidney disease, unspecified Status: Acute Assessment and Plan: monitor. Lasix has been re-initiated at 20 mg daily (4) Dysphagia, pharyngoesophageal: Code(s): R13.14 - Dysphagia, pharyngoesophageal phase Status: Acute Assessment and Plan: pureed diet thin liquids speech therapy will see patient. 02/22/21 ST therapy adjusting diet . Follow up with ENT03/02/21 Diet advance to soft bite size and Thin liquids. (5) Hypertension: Qualifiers: Hypertension type: essential hypertension Qualified Code(s): I10 - Essential (primary) hypertension Code(s): I10 - Essential (primary) hypertension Status: Chronic Assessment and Plan: Norvasc 5 mg daily. Metoprolol tartrate 12.5 Q 12. Blood pressures range was variable from 110- 166. (6) Peripheral vascular disease: Code(s): I73.9 - Peripheral vascular disease, unspecified Status: Chronic Assessment and Plan: Brilinta 90 mg every 12 hours in a fenofibrate 134 mg daily aspirin 81 mg daily. discontinue fish oil. (7) GERD (gastroesophageal reflux disease): Code(s): K21.9 - Gastro-esophageal reflux disease without esophagitis Status: Acute Assessment and Plan: monitor Pepcid (8) Diabetes mellitus: Qualifiers: Diabetes mellitus complication detail: with unspecified neuropathy Diabetes mellitus complication status: with neurologic complications Diabetes mellitus buttermaker insulin use: with buttermaker use Diabetes mellitus type: type 2 Qualified Code(s): E11.40 - Type 2 diabetes mellitus with diabetic neuropathy, unspecified; Z79.4 - vermin exterminator (current) use of insulin Code(s): E11.9 - Type 2 diabetes mellitus without complications Status: Chronic Assessment and Plan: Lantus 15 mg at bedtime (9) Depression: Qualifiers: Depression Type: unspecified Qualified Code(s): F32.9 - Major depressive disorder, single episode, unspecified Code(s): F32.9 - Major depressive disorder, single episode, unspecified Status: Acute Assessment and Plan: Prozac Wellbutrin Effexor. Spoke with Dr Bach who does not wish to change these meds. Dr Bach relates that patient had severe depression and is now stabilized on these meds. (10) Atrial fibrillation: Qualifiers: Atrial fibrillation type: paroxysmal Qualified Code(s): I48.0 - Paroxysmal atrial fibrillation Code(s): I48.91 - Unspecified atrial fibrillation Status: Chronic Assessment and Plan: Brilinta 90 mg every 12 hours aspirin 81 mg daily (11) Obstructive sleep apnea: Code(s): G47.33 - Obstructive sleep apnea (adult) (pediatric) Status: Acute Assessment and Plan: Sleep study as an outpatient per Dr Bach. (12) Acute on chronic congestive heart failure: Code(s): I50.9 - Heart failure, unspecified Status: Acute Assessment and Plan: Lasix 20 mg daily (13) Hyperlipidemia: Qualifiers: Hyperlipidemia type: unspecified Qualified Code(s): E78.5 - Hyp
== END 2021-03-02 11:00 | disposition home health service (06) | DRG 292 ==
PROVIDERS: Physician Assistant; Admitting Provider Physical Medicine & Rehabilitation; PCP Internal Medicine; Visit Provider Physician Assistant
DX: I13.0 Hypertensive heart and chronic kidney disease with heart failure and stage 1 through stage 4 chronic kidney disease, or unspecified chronic kidney disease (principal); N17.9 Acute kidney failure, unspecified; I50.32 Chronic diastolic (congestive) heart failure; N18.30 Chronic kidney disease, stage 3 unspecified; R06.09 Other forms of dyspnea; D64.9 Anemia, unspecified; E11.51 Type 2 diabetes mellitus with diabetic peripheral angiopathy without gangrene; E11.42 Type 2 diabetes mellitus with diabetic polyneuropathy; E11.22 Type 2 diabetes mellitus with diabetic chronic kidney disease; F41.8 Other specified anxiety disorders; G47.33 Obstructive sleep apnea (adult) (pediatric); I48.91 Unspecified atrial fibrillation; I25.10 Atherosclerotic heart disease of native coronary artery without angina pectoris; K21.9 Gastro-esophageal reflux disease without esophagitis; R13.14 Dysphagia, pharyngoesophageal phase; Z95.1 Presence of aortocoronary bypass graft; Z87.891 Personal history of nicotine dependence; Z79.4 Long term (current) use of insulin; Z79.82 Long term (current) use of aspirin
CPT/HCPCS: 36415; 71046; 80048; 80053; 82274; 82948; 83036; 83735; 85014; 85018; 85025; 85027; 86850; 86900; 86901; 86920; 92507; 92523; 92526; 92610; 94640; 97110; 97116; 97161; 97166; 97530; 97535; A9270; J1815

== ENCOUNTER 2021-03-03 22:52 | Inpatient (IN) | payer MEDICARE, SELFPAY ==
--- NOTE | ~2021-03-03 | XR_ITS ---
EXAMINATION: XR abdomen obstructive series DATE: 03/05/2021 09:54 INDICATION: Colitis. Abdominal pain. Diarrhea. TECHNIQUE: Upright and supine views of the abdomen on 3 radiographs were obtained. COMPARISON: CT abdomen and pelvis 03/03/2021 FINDINGS: There are no dilated loops of bowel. There is fold thickening in the colon, consistent with colitis. No free intraperitoneal gas. Median sternotomy wires are noted. There is an arterial stent in right pelvis. IMPRESSION: 1. Fold thickening in the colon, consistent with colitis. Reviewed, dictated and finalized at location A.
--- NOTE | ~2021-03-03 | MR_ITS ---
EXAMINATION: MR brain/brain stem wo con DATE: 03/13/2021 08:42 INDICATION: Altered mental status TECHNIQUE: Magnetic resonance imaging (MRI) of the brain and brainstem was performed without intraven ous contrast. Sequences included sagittal and axial T1-weighted SE, axial diffusion-weighted FS SE, a xial T2*-weighted GRE, axial T2-weighted FLAIR, and axial T2-weighted FSE. Apparent diffusion coeffic ient (ADC) maps were created. COMPARISON: None. FINDINGS: There are no areas of restricted diffusion to suggest acute infarction. No intracranial hemorrhage or abnormal intracranial mass lesion. There are scattered areas of nonspecific increased T2-weighted si gnal intensity in the cerebral white matter, predominantly involving the deep and periventricular whi te matter. There are no intraparenchymal signal abnormalities seen on the other pulse sequences. Symm etric prominence of the sulci and ventricles consistent with mild age-appropriate diffuse cerebral vo lume loss. There are no abnormal extra-axial fluid collections. Flow voids are seen in the cerebral a rteries on the T2-weighted sequences consistent with their expected patency. The central flow-void in the left vertebral artery however appears diminutive suggesting significant stenosis and which corre sponds in location to prominent circumferential atherosclerotic calcification on the prior CT. Change s of bilateral intraocular lens replacement. Mild mucosal thickening in the bilateral ethmoid sinuses . Visualized orbits and soft tissues are unremarkable. IMPRESSION: 1. No acute intracranial process. 2. Age-related changes including mild diffuse volume loss and mild periventricular predominant calcif ic white matter T2 hyperintensity consistent with chronic small vessel ischemic disease. 3. Stenosis of the left vertebral artery. Reviewed, dictated and finalized at location A. IMPRESSION: 1. No acute intracranial process. 2. Age-related changes including mild diffuse volume loss and mild periventricu lar predominant calcific white matter T2 hyperintensity consistent with chronic small vessel ischemic disease. 3. Stenosis of the left vertebral artery.
--- NOTE | ~2021-03-03 | CT_ITS ---
EXAMINATION: CT brain wo con DATE: 03/11/2021 13:34 INDICATION: Confusion TECHNIQUE: Computed tomography (CT) of the head was performed without intravenous contrast. Sagittal and coronal reconstructions were performed. The mA was adjusted according to patient size. Iterative reconstruction technique was employed. The dose-length product was 605.33 mGy-cm. COMPARISON: head CT dated 03/03/2021 FINDINGS: No acute intracranial hemorrhage, acute infarction or abnormal extra axial fluid collection. There is mild scattered white matter hypoattenuation consistent with chronic small vessel ischemic disease. V entricles are normal and symmetric. No mass/mass effect. Changes of bilateral intraocular lens replac ement. The orbits and mastoid air cells are normal. Partial opacification of the right sphenoid sinus with thickened sclerotic silva consistent with chronic sinusitis. Intracranial calcified cerebral at herosclerosis is noted. IMPRESSION: 1. No acute intracranial process. 2. Mild scattered white matter hypoattenuation consistent with chronic small vessel ischemic disease. 3. Chronic right sphenoid sinusitis. Reviewed, dictated and finalized at location A. IMPRESSION: 1. No acute intracranial process. 2. Mild scattered white matter hypoattenuation consistent with chronic small ve ssel ischemic disease. 3. Chronic right sphenoid sinusitis.
--- NOTE | ~2021-03-03 | XR_ITS ---
EXAMINATION: XR chest 1V portable INDICATION: Shortness of breath TECHNIQUE: Portable AP chest at 0745 hours COMPARISON: 03/03/2021 FINDINGS: Cardiomegaly is noted. There are stable airspace opacities of the lower lung zones, left gr eater than right. No pleural effusion or pneumothorax is identified Median sternotomy wires and media stinal surgical clips are seen, likely from prior coronary artery bypass grafting. Coronary artery st ents are also noted. IMPRESSION: 1. Stable airspace opacities of the lung bases, consistent with pneumonia and/or chronic interstitial lung disease. 2. Cardiomegaly. Reviewed, dictated and finalized at location A. IMPRESSION: 1. Stable airspace opacities of the lung bases, consistent with pneumonia and/o r chronic interstitial lung disease. 2. Cardiomegaly.
--- NOTE | ~2021-03-03 | XR_ITS ---
MODIFIED ESOPHAGRAM HISTORY: Dysphagia. TECHNIQUE: Modified barium esophagram was performed on 03/05/2021. I administered fluoroscopy and perf ormed the exam with speech pathologist. Patient was seated for lateral fluoroscopic imaging for bonilla stion of thin liquids, pudding, solids and quantified amounts, followed by thin liquids in uncontroll ed amounts. This was recorded on tape. A single fluoroscopic spot image was also recorded. The DAP fo r this procedure was 6.212 Gycm2. The amount of fluoroscopy time used during this procedure was 5.5 m inutes. FINDINGS: Oral stage: Adequate function. Pharyngeal stage: One of contrast in the vallecula and piriform sinuses with reduced laryngeal elevat ion and closure resulting in recurrent mild laryngeal penetration without aspiration. Cervical/esophageal stage: Cricopharyngeal dysfunction with backflow of material into the piriform si nuses. IMPRESSION: Pharyngeal and upper esophageal dysphagia. Please correlate with speech pathologist find ings and specific feeding recommendations. Reviewed, dictated and finalized at location A. IMPRESSION: Pharyngeal and upper esophageal dysphagia. Please correlate with luci riddle pathologist findings and specific feeding recommendations.
--- NOTE | ~2021-03-03 | CT_ITS ---
EXAMINATION: CT chest abdomen pelvis wo con DATE: 03/06/2021 08:14 INDICATION: Worsening abdominal pain. Fever. Leukocytosis. TECHNIQUE: Computed tomography (CT) of the chest, abdomen, and pelvis was performed without intraveno us contrast. Automated exposure control and iterative reconstruction technique were employed. The dos e-length product was 749.62 mGy-cm. COMPARISON: CT abdomen and pelvis 03/03/2021 FINDINGS: CHEST CT: There is peripheral septal thickening in the inferior lungs with groundglass opacities, consistent wi th chronic interstitial lung disease. No bronchiectasis or honeycombing. No pleural effusion. There a re nodules in the thyroid measuring up to 19 mm. Cardiomegaly is noted. There are coronary artery sumeet cifications. There are changes of coronary artery bypass grafting. No pericardial effusion. There is a small sliding hiatal hernia. There is severe thoracic spondylosis. ABDOMEN/PELVIS CT: The liver, gallbladder, spleen, pancreas, adrenal glands, and right kidney are normal. There is a 1.9 cm stone in left kidney. There is severe wall thickening throughout the colon with surrounding fat s tranding, consistent with colitis. The appendix is normal. The small bowel is normal in caliber. Ther e is a small volume of ascites. There are no pathologically enlarged lymph nodes. There are stents in the bilateral common iliac arteries and right external iliac artery and right common femoral artery. There is a graft involving right profunda femoral artery and right superficial femoral artery. There is severe lumbar spondylosis. IMPRESSION: 1. Worsened pancolitis. 2. Worsened small volume of ascites. 3. Mild chronic interstitial lung disease in a pattern of nonspecific interstitial pneumonia (NSIP). 4. Multinodular goiter. Consider thyroid ultrasound for risk stratification. Reviewed, dictated and finalized at location A. IMPRESSION: 1. Worsened pancolitis. 2. Worsened small volume of ascites. 3. Mild chronic interstitial lung disease in a pattern of nonspecific interstit ial pneumonia (NSIP). 4. Multinodular goiter. Consider thyroid ultrasound for risk stratification.
--- NOTE | ~2021-03-03 | US_ITS ---
EXAMINATION: US venous doppler [facility] DATE: 03/04/2021 12:49 INDICATION: Left lower limb swelling. TECHNIQUE: Grayscale ultrasound images without and with compression and Doppler ultrasound images of the left lower extremity veins were obtained. COMPARISON: None. FINDINGS: The visualized portions of left common femoral vein, profunda (deep) femoral vein, femoral vein, popl iteal vein, peroneal veins, posterior tibial veins, and greater saphenous vein outflow are patent. IMPRESSION: 1. No deep venous thrombosis. Reviewed, dictated and finalized at location A.
--- NOTE | ~2021-03-03 | XR_ITS ---
EXAMINATION: XR barium swallow modified DATE: 03/14/2021 09:14 INDICATION: Witnessed aspiration. Recent cerebrovascular accident. TECHNIQUE: The patient was given barium-containing material of multiple consistencies to swallow by jey anna speech pathologist while I performed fluoroscopy. Dose-area product was 2.1 Gy-cm2. 2.7 minutes fluoroscopy time FINDINGS: Oral Stage: Within functional limits Pharyngeal Phase: Mild to moderate pyriform sinus residual, improved Cervical/Esophageal Stage: Minimal esophageal/pharyngeal black flow IMPRESSION: Modified esophagram findings as above. Please refer to the speech therapy report for spec ific recommendations. Reviewed, dictated and finalized at Location A. Reviewed, dictated and finalized at location A. IMPRESSION: Modified esophagram findings as above. Please refer to the speech t herapy report for specific recommendations.
--- NOTE | ~2021-03-03 | XR_ITS ---
EXAMINATION: XR abdomen/kub 1V INDICATION: Hyperactive bowel sounds, abdominal bloating TECHNIQUE: Supine view of the abdomen is obtained on three radiographs. COMPARISON: 03/07/2021 FINDINGS: The bowel gas pattern is nonspecific. No dilated loops of bowel are evident. A vascular chante nt overlies the right pelvis. There are surgical clips projecting over the right pelvis and medial ri ght leg. Calcified atherosclerosis is noted. There is severe lumbar spondylosis. Coronary artery sten ts are noted. Median sternotomy wires and mediastinal surgical clips are seen, likely from prior val nary artery bypass grafting. IMPRESSION: 1. Nonspecific bowel gas pattern. Reviewed, dictated and finalized at location B.
--- NOTE | ~2021-03-03 | XR_ITS ---
EXAMINATION: XR abdomen/kub 1V DATE: 03/07/2021 06:01 INDICATION: C. Difficile colitis. TECHNIQUE: A supine view of the abdomen was obtained. COMPARISON: Abdomen radiographs 03/05/2021, CT 03/06/2021 FINDINGS: There are no dilated loops of bowel. There is a small volume of stool in the colon. There i s fold thickening in the rectum and transverse colon. There is a vascular stent overlying right pelvi s. Retained epicardial pacer wires are noted. IMPRESSION: 1. Fold thickening in the colon, consistent with colitis. Reviewed, dictated and finalized at location A.
--- NOTE | ~2021-03-03 | US_ITS ---
EXAMINATION: US renal BI EXAM DATE: 03/08/2021 09:27 INDICATION: Worsening kidney function . TECHNIQUE: Multiple grayscale and Doppler images of the kidneys were obtained (by a technologist who performed the scan) and subsequently reviewed. There is no prior study for comparison. FINDINGS: Right kidney: There is normal contour and echogenicity. It measures 12.3 x 3.8 x 6.5 centimeters. T here are no focal renal lesions identified. There is no hydronephrosis. Left kidney: There is normal contour and echogenicity. It measures 9.3 x 5.4 x 3.8 centimeters. The re are no focal renal lesions identified. There is no hydronephrosis. Bladder unremarkable. The rectosigmoid colon is visualized through the bladder, has significant edema consistent with colitis. IMPRESSION: 1. No hydronephrosis. Reviewed, dictated and finalized at location B. IMPRESSION: 1. No hydronephrosis.
--- NOTE | ~2021-03-03 | CT_ITS ---
EXAMINATION: CT brain wo con DATE: 03/03/2021 23:22 INDICATION: Altered mental status. TECHNIQUE: Computed tomography (CT) of the head was performed without intravenous contrast. The mA wa s adjusted according to patient size. Iterative reconstruction technique was employed. The dose-lengt h product was 605.33 mGy-cm. COMPARISON: None FINDINGS: There are scattered areas of low attenuation in the cerebral white matter, which is within normal limits for the patient's age. There is no intracranial hemorrhage, acute infarction, or abnorm al intracranial mass lesion. The ventricles are normal in size. There are likely changes of ocular le ns replacement surgeries. There is mucosal thickening in the paranasal sinuses. There is thickening a nd sclerosis of the silva of the sphenoid sinus, consistent with chronic sinusitis. The mastoid air c ells are normal. IMPRESSION: 1. Normal aging brain. 2. Chronic sinusitis. Reviewed, dictated and finalized at location A.
--- NOTE | ~2021-03-03 | CT_ITS ---
EXAMINATION: CT abdomen pelvis wo con DATE: 03/04/2021 00:11 INDICATION: Abdominal pain. TECHNIQUE: Computed tomography (CT) of the abdomen and pelvis was performed without intravenous contr ast. Automated exposure control and iterative reconstruction technique were employed. The dose-length product was 475.10 mGy-cm. COMPARISON: None. FINDINGS: The visualized portions of the lung bases demonstrate peripheral septal thickening with remedios undglass opacities, small nodules, and mild architectural distortion. No pleural effusion. Cardiomega ly is noted. There are coronary artery calcifications. Retained epicardial paper wires are noted. No pericardial effusion. Median sternotomy wires are noted. The liver, gallbladder, spleen, pancreas, ad renal glands, and right kidney are normal. There is a 1.9 cm stone in left kidney. There is wall thic kening from the ascending colon to the sigmoid colon, consistent with colitis. There are no dilated l oops of bowel. There are stents in the common iliac arteries. There is a stent in right external fouzia c artery and common femoral artery. There are grafts involving right profunda femoral artery and supe rficial femoral artery. There are no pathologically enlarged lymph nodes. There is no free intraperit lima fluid. There is severe lumbar spondylosis. IMPRESSION: 1. Colitis. 2. Diffuse lower lung disease, consistent with chronic interstitial lung disease with or without supe rimposed pneumonia. Reviewed, dictated and finalized at location A. IMPRESSION: 1. Colitis. 2. Diffuse lower lung disease, consistent with chronic interstitial lung diseas e with or without superimposed pneumonia.
--- NOTE | ~2021-03-03 | XR_ITS ---
EXAMINATION: XR chest 1V DATE: 03/03/2021 23:26 INDICATION: Altered mental status. TECHNIQUE: A single frontal view of the chest was obtained. COMPARISON: Chest 2 views 02/20/2021, CT abdomen and pelvis 03/03/2021 FINDINGS: There are airspace opacities in the lower lung zones, left worse than right. No pleural eff usion or pneumothorax. Cardiomegaly is noted. Median sternotomy wires and mediastinal surgical clips are seen, likely from prior coronary artery bypass grafting. A radiopaque marker overlies right breas t. IMPRESSION: 1. Stable airspace opacities in the lower lung zones, left worse than right, consistent with pneumoni a and/or chronic interstitial lung disease. 2. Cardiomegaly. Reviewed, dictated and finalized at location A. IMPRESSION: 1. Stable airspace opacities in the lower lung zones, left worse than right, co nsistent with pneumonia and/or chronic interstitial lung disease. 2. Cardiomegaly.
[2021-03-03 23:00] VITALS: BP 160/50; PULSE 70; RESP 18; TEMP 37.3; O2SAT 100
--- NOTE | 2021-03-03 23:01 | ECG_ITS ---
Measurements Intervals [place] Rate: 66 P: 119 DE: 188 QRS: -51 QRSD: 169 T: 1 QT: 502 QTc: 529 Interpretive Statements SINUS RHYTHM RIGHT BUNDLE BRANCH BLOCK LEFT ANTERIOR FASCICULAR BLOCK LEFT VENTRICULAR HYPERTROPHY AND ST-T CHANGE BASELINE ARTIFACT- I, II, III, AVR, AVL, AVF ABNORMAL ECG Electronically Signed On 03-04-2021 7:11:03 CDT by Allen Stevenson D.O.
[2021-03-03 23:13] LABS: Basophils Absolute Auto 0.1 K/mm3 (0.0-0.1); Basophils Percent Auto 0.7 % (0.2-1.2); Eosinophils Absolute Auto 0.2 K/mm3 (0-0.3); Eosinophils Percent Auto 1.7 % (0-4.4); Hematocrit 29.3 % (37.0-47.0); Hemoglobin 8.5 g/dL (12.0-15.0); Immature Granulocyte Absolute 0.05 K/mm3 (0.00-0.031); Immature Granulocyte Percent A 0.4 % (0-0.5); Lymphocytes Absolute Auto 1.27 K/mm3 (0.9-3.2); Lymphocytes Percent Auto 10.5 % (18.3-44.2); Mean Corpuscular Hemoglobin 25.6 pg (26-34); Mean Corpuscular Volume 88.3 fl (80-100); Mean Platelet Volume 11.3 fl (7.4-10.4); Monocytes Absolute Auto 1.3 K/mm3 (0.1-0.6); Monocytes Percent Auto 10.4 % (2.6-8.5); Neutrophils Absolute Auto 9.2 K/mm3 (1.3-6.7); Neutrophils Percent Auto 76.3 % (45.5-73.1); Platelet Count Result 360 k/mm3 (150-375); Red Blood Count 3.32 M/mm3 (4.2-5.4); White Blood Count 12.1 K/mm3 (4.5-10.0)
--- NOTE | 2021-03-03 23:14 | ED.GENADULT ---
HPI - General Adult General Chief complaint: Urogenital-Female Stated complaint: Weakness/ UTI/ diarrhea Time Seen by Provider: 03/03/21 22:55 Source: RN notes reviewed History of Present Illness HPI narrative: Patient presents emergency department from home via EMS for weakness. The history is per the patient as well as the patient's daughter. Patient daughter states the patient was just discharged from rehab in our facility yesterday states the patient had been diagnosed with a UTI and a been discharged with antibiotics as well as had had some changes of her home medications for depression states that since the patient's been home she has been more lethargic and confused she states patient has been having diarrhea as well per the patient she denies any fevers or chills chest pain shortness of breath abdominal pain nausea vomiting or any other symptoms Related Data Home Medications Medication Instructions Recorded Confirmed Brilinta 90 mg PO Q12H 02/19/21 02/19/21 aspirin 81 mg PO DAILY 02/19/21 02/19/21 cetirizine [Zyrtec] 10 mg PO DAILY 02/19/21 02/19/21 ergocalciferol (vitamin D2) 50,000 unit PO WEEKLY 02/19/21 02/19/21 fenofibrate micronized 134 mg PO DAILY 02/19/21 02/19/21 ferrous sulfate [Feosol] 325 mg PO DAILY 02/19/21 02/19/21 fluoxetine [Prozac] 40 mg PO DAILY 02/19/21 02/19/21 fluticasone propion-salmeterol 1 inh INHALATION Q12H 02/19/21 02/19/21 [Advair Diskus] furosemide [Lasix] 20 mg PO DAILY 02/19/21 02/19/21 Allergies Allergy/AdvReac Type Severity Reaction Status Date / Time HENRI Inhibitors Allergy Unknown Unverified 03/01/21 11:47 liraglutide [From Victoza] Allergy Unknown Unknown Verified 02/23/21 08:54 lisinopril Allergy Unknown Unverified 03/01/21 11:47 Victoza Allergy Unknown Uncoded 03/01/21 11:47 Review of Systems Review of Systems: Narrative: Gen.: Denies fevers or chills ENT: Denies congestion Respiratory: Denies shortness of breath or cough CV: Denies chest pain or palpitations GI: Denies abdominal pain nausea, emesis or diarrhea denies burning, urgency, frequency or hematuria Musculoskeletal: Denies back pain or muscle pain Neuro: Reports weakness Skin: Denies rash Except as documented, all other systems reviewed and negative [facility] Past Medical History Medical History Acute kidney injury superimposed on chronic kidney disease Acute on chronic congestive heart failure Anemia Anxiety Atrial fibrillation Chronic diastolic CHF (congestive heart failure) Coronary artery disease Depression Diabetes mellitus Diabetic neuropathy Dysphagia, pharyngoesophageal Dyspnea on exertion GERD (gastroesophageal reflux disease) Hyperlipidemia Hypertension Obstructive sleep apnea Peripheral vascular disease Pneumonia Urinary tract infection Surgical History Surgical History H/O angioplasty H/O breast biopsy History of endarterectomy Hx of CABG Status post insertion of iliac artery stent Family History Family History Mother Hyperlipidemia Hypertension Father Lung cancer Hypertension Social History Social History Social History: patient lives with her spouse in a 2 level home with 2 steps to enter and 12 steps between the level. Bedroom and bathroom are located on the 2nd floor. Prior to admission patient was completely independent requiring no adaptive devices. Patient is able stay at the daughter's house following patient if unable to navigate stairs. former smoker. No alcohol or drug abuse. Smoking packs per day: 1 Smoking cigarettes per day: 20.0 Years smoked: 40 Smoking pack-years: 40.00 Smoking status: Former smoker Tobacco type: cigarettes Alcohol intake: never Substance use: never Gender identity (if verbalized by the patient):
[2021-03-03 23:19] LABS: Hypochromasia 1+ (NORMAL); Platelet Estimate Adequate (Adequate)
[2021-03-03 23:23] LABS: INR 1.1; Prothrombin Time 14.5 Seconds (11.1-14.7)
[2021-03-03 23:24] LABS: Partial Thromboplastin Time 29.8 SECONDS (22.3-36.8)
[2021-03-03 23:25] LABS: Alanine Aminotransferase 9 U/L (4-35); Albumin Level 3.6 g/dL (3.5-5.1); Alkaline Phosphatase 61 U/L (38-126); Anion Gap 16 mmol/L (8-16); Aspartate Amino Transferase 23 U/L (14-36); Bilirubin,Total 0.4 mg/dL (0.2-1.3); Blood Urea Nitrogen 26 mg/dL (7-17); Calcium 9.5 mg/dL (8.4-10.2); Carbon Dioxide 16 mmol/L (22-30); Chloride 104 mmol/L (98-107); Estimated Glomerular Filt Rate 22; Glucose 94 mg/dL (65-105); Potassium 3.4 mmol/L (3.4-5.0); Sodium 136 mmol/L (137-145)
[2021-03-03] MEDS: SODIUM CHLORIDE 0.9% IV 1,000 ML 999 ML IV CONT (23:50)
[2021-03-04] VITALS (10 sets, daily range): BP systolic 129–177; BP diastolic 52–74; PULSE 70–91; RESP 14–20; TEMP 36.3–37.2; O2SAT 95–100; BMI 29.5
[2021-03-04 00:55] LABS: Add Urine Microscopic? YES; Appearance Urine Cloudy (Clear); Bacteria Urine 4+ /hpf; Bilirubin Urine Negative (Negative); Blood Urine Negative (Negative); Color Urine Amber (Yellow); Glucose Urine UA Negative (Negative); Hyaline Casts Urine 20-29 /lpf; Ketones Urine Trace mg/dL (Negative); Leukocyte Esterase Ur 2+ LEU/UL (Negative); Mucus Urine Few /lpf; Nitrate Urine Negative (Negative); Protein Urine 3+ mg/dL (Negative); Specific Grav Ur 1.016 (1.001-1.035); Squamous Epithelial Cell Urine Occasional /hpf (Few); Urobilinogen Urine Negative mg/dL (<2.0); WBC Urine >75 /hpf
[2021-03-04 01:34] LABS: Lactic Acid Reflex 0.6 mmol/L (0.7-2.1)
--- NOTE | 2021-03-04 01:45 | PM.IMHP ---
H&P: HPI History of Present Illness Date/Time: 03/04/21 01:45 Chief Complaint: altered mental status Narrative: This is a 75-year-old female with past medical history significant for dyslipidemia: Reflux disease, COPD, type 2 diabetes mellitus insulin dependent, hypertension, CKD, patient recently discharged on 03/02/2021 from [facility] after the patient has had multiple hospitalizations with the conditioning. history has been obtained from the daughter who is at bedside as patient is very confused according to daughter she notices worsening confusion decreased appetite increased lethargy patient had been treated for recent urinary tract infection, she did not notice any fevers rigors or chills no cough no sputum production. finally decided to bring her to the emergency room Ms. Nicholson is not able to give any history due to her confusion. preliminary workup was significant for urinary tract infection with great number of wbc's. Review of Systems Review of Systems: ROS unobtainable: Yes unobtainable due to medical condition ( altered mental status) PMFSH Past Medical History Medical History Acute kidney injury superimposed on chronic kidney disease Acute on chronic congestive heart failure Anemia Anxiety Atrial fibrillation Chronic diastolic CHF (congestive heart failure) Coronary artery disease Depression Diabetes mellitus Diabetic neuropathy Dysphagia, pharyngoesophageal Dyspnea on exertion GERD (gastroesophageal reflux disease) Hyperlipidemia Hypertension Obstructive sleep apnea Peripheral vascular disease Pneumonia Urinary tract infection Surgical History Surgical History H/O angioplasty H/O breast biopsy History of endarterectomy Hx of CABG Status post insertion of iliac artery stent Family History Family History Mother Hyperlipidemia Hypertension Father Lung cancer Hypertension Social History Social History Social History: patient lives with her spouse in a 2 level home with 2 steps to enter and 12 steps between the level. Bedroom and bathroom are located on the 2nd floor. Prior to admission patient was completely independent requiring no adaptive devices. Patient is able stay at the daughter's house following patient if unable to navigate stairs. former smoker. No alcohol or drug abuse. Smoking packs per day: 1 Smoking cigarettes per day: 20.0 Years smoked: 40 Smoking pack-years: 40.00 Smoking status: Former smoker Alcohol intake: never Substance use: never Substance use type: does not use Gender identity (if verbalized by the patient): Female Spiritual care concerns: No Meds Home Medications and Allergies Home Medications Medication Instructions Recorded Confirmed Type Brilinta 90 mg PO Q12H 02/19/21 02/19/21 History aspirin 81 mg PO DAILY 02/19/21 02/19/21 History cetirizine [Zyrtec] 10 mg PO DAILY 02/19/21 02/19/21 History ergocalciferol (vitamin D2) 50,000 unit PO WEEKLY 02/19/21 02/19/21 History fenofibrate micronized 134 mg PO DAILY 02/19/21 02/19/21 History ferrous sulfate [Feosol] 325 mg PO DAILY 02/19/21 02/19/21 History fluoxetine [Prozac] 40 mg PO DAILY 02/19/21 02/19/21 History fluticasone propion-salmeterol 1 inh INHALATION Q12H 02/19/21 02/19/21 History [Advair Diskus] furosemide [Lasix] 20 mg PO DAILY 02/19/21 02/19/21 History Lantus U-100 Insulin 15 unit SUBCUT HS #10 ml 03/01/21 Rx Saccharomyces boulardii [Florastor] 250 mg PO BID #60 cap 03/01/21 Rx albuterol sulfate 2 puff INHALATION Q6H PRN #1 g 03/01/21 Rx amlodipine [Norvasc] 10 mg PO DAILY #30 tablet 03/01/21 Rx atorvastatin 80 mg PO EVERY OTHER DAY #15 tablet 03/01/21 Rx bupropion HCl 75 mg PO BID #60 tablet 03/01/21 Rx famotidine 40 mg PO DAILY #30 tablet
--- NOTE | 2021-03-04 02:15 | ADMGEN ---
This patient, Alesha Leo, was admitted to 2 Medical Room 247-. Patient/family oriented to hospital policies and general routines including ID bracelet, bed and alarms, visiting hours, pain management, procedures, bathroom and other care routines, personal items, smoking policy, room service/diet, and visiting hours. Information on how to activate the Rapid Response Team has been discussed. Patient/Family are encouraged to report perceived risks to care and to ask questions if they do not understand what they are told or what they should do.
[2021-03-04] MEDS: SODIUM CHLORIDE 0.9% IV 1,000 ML 80 ML IV CONT (02:44)
--- NOTE | 2021-03-04 11:43 | PM.IMPN ---
Progress Note: A&P Assessment and Plan (1) Acute UTI: Code(s): N39.0 - Urinary tract infection, site not specified Status: Acute Assessment and Plan: UA concerning for UTI with additional symptoms of lethary and confusion -Continue Zosyn -await urine cx and adjust medications has needed -blood cultures pending -lactic normal but bicarb low. Recheck bmp. if it is still low may need abg and bicarb. lactic acid normal. Anion gap on admission 16. recheck at 12 (2) Colitis: Code(s): K52.9 - Noninfective gastroenteritis and colitis, unspecified Status: Acute Assessment and Plan: Pt has had a couple of episodes of diarrhea in rehab and at home but no complaints of abdominal pain, nausea, or vomiting -continue zosyn -obtain stool cultures -continue liquid diet and advance as tolerated (3) Chronic diastolic CHF (congestive heart failure): Code(s): I50.32 - Chronic diastolic (congestive) heart failure Status: Acute Assessment and Plan: Appears to be euvolemic -she was dry on labs on admission and received some fluids -Will stop fluids but hold off on lasix therapy today and may consider restarting in a day or so -repeat BMP -continue metorpolol aspirin, and atorvastatin (4) GERD (gastroesophageal reflux disease): Code(s): K21.9 - Gastro-esophageal reflux disease without esophagitis Status: Acute Assessment and Plan: Continue famotidine (5) Atrial fibrillation: Qualifiers: Atrial fibrillation type: paroxysmal Qualified Code(s): I48.0 - Paroxysmal atrial fibrillation Code(s): I48.91 - Unspecified atrial fibrillation Status: Chronic Assessment and Plan: rate controlled -not anticoagulated, however patient on dual anti-platelet therapy -if mental status does not improve with tx of above, consider MRI of the brain to r/u occult CVA (6) Obstructive sleep apnea: Code(s): G47.33 - Obstructive sleep apnea (adult) (pediatric) Status: Acute Assessment and Plan: Continue cpap (7) CKD (chronic kidney disease): Code(s): N18.9 - Chronic kidney disease, unspecified Status: Acute Assessment and Plan: As stated above, Cr a little more elevated than baseline -pt received IV fluids but these were stopped this morning to avoid hypovolemia -recheck bmp now -hold lasix at this time (8) Altered mental status: Code(s): R41.82 - Altered mental status, unspecified Status: Acute Assessment and Plan: Acute metabolic encephalopathy -as above. Likely due to UTI. If does not improve with abx consider MRI brain Time Spent With Patient Time with patient: 25 - 35 minutes Subjective Date/time seen: 03/04/21 11:43 Interval history: Pt is a 75-year-old female here for UTI and colitis. Patient was seen today and was confused but able to hold conversation. patient states she has not had any diarrhea since last night. She says she is eating and drinking okay and denies abdominal pain. Pt denies nausea, vomiting, fevers, chills, constipation, diarrhea, Dysuria, cough, chest pain, or shortness of breath. Review of Systems Review of Systems: All systems reviewed & are unremarkable except as noted in HPI and below Exam Narrative: Exam Narrative: General: Well developed well nourished patient in NAD HEENT: normocephalic Neck: supple Neuro: Alert and oriented to herself but got confused on where she was, birthday and date (not at her baseline). CN2-12 appeared to be intact. Stregnth 5/5 in UE and LE. She had problems understanding what I was asking her to do during the finger to nose exam but once she understood she was able to do it without issue. CV:RRR Resp:CTA Abd: Soft, non distended. No pain to palpation anywhere in the abdomen. Positive bowel sounds Extremities: Chronic right leg swelling (previous sx). No swelling to the left leg. Obje
[2021-03-04 12:08] LABS: Anion Gap 14 mmol/L (8-16); Blood Urea Nitrogen 24 mg/dL (7-17); Carbon Dioxide 16 mmol/L (22-30); Chloride 105 mmol/L (98-107); Estimated CRCL calculation 21 ml/min; Estimated Glomerular Filt Rate 27; Glucose 154 mg/dL (65-105); Potassium 3.4 mmol/L (3.4-5.0); Sodium 135 mmol/L (137-145)
[2021-03-04 12:19] LABS: Glucose Point of Care 169 mg/dl (65-105)
[2021-03-04 13:54] LABS: Alveolar/Arterial O2 Gradient 47.4 mmHg; Base Excess ABG -5.8 mEq/l (+/-2.0); Carboxyhemoglobin 0.3 % THb (0-2.0); Device ROOM AIR; Fractional Inspired Oxygen 21 %; HCO3 ABG 17.5 mEq/l (22.0-26.0); Methemoglobin ABG 0.8 %THb (0-1.5); Modified Allen's Test Unable to perform; Oxygen Content ABG 11.4 %vol (16.0-22.0); Oxyhemoglobin 93.4 % THb (90.0-100.0); PCO2 ABG 26.6 mmHg (35.0-45.0); PO2 ABG 70.5 mmHg (80.0-100.0); PO2 FiO2 Ratio Arterial Blood 3.36 %; Reduced Hemoglobin 5.5 %THb (0-5.0); Site Drawn LEFT RADIAL; Total Hemoglobin 8.6 g/dL (12.0-18.0); pH ABG 7.435 (7.350-7.450)
[2021-03-04] MEDS: POTASSIUM CHLORIDE 20 MEQ TABLET PO (13:56)
[2021-03-04] MEDS: VENLAFAXINE HCL 25 MG TABLET PO (17:06)
[2021-03-04] MEDS: buPROPion HCL 75 MG TABLET PO (17:06)
[2021-03-04] MEDS: ISOSORBIDE MONONITRATE 10 MG TABLET PO (17:06)
[2021-03-04] MEDS: SACCHAROMYCES BOULARDII 250 MG CAPSULE PO (17:06)
[2021-03-04] MEDS: METOPROLOL TARTRATE 12.5 MG TABLET PO (22:31)
--- NOTE | 2021-03-04 22:44 | PC.NURSE ---
witnessed aspiration while taking 12.5mg metoprolol this evening. No cough reflex observed. Dr Rehman notified, pt made NPO and swallow eval ordered for morning.
[2021-03-05] VITALS (10 sets, daily range): BP systolic 130–154; BP diastolic 44–59; PULSE 75–85; RESP 18–20; TEMP 36.5–38.2; O2SAT 94–100; BMI 29.5
[2021-03-05 05:49] LABS: Hematocrit 27.6 % (37.0-47.0); Hemoglobin 8.2 g/dL (12.0-15.0); Mean Corpuscular HGB Conc 29.7 g/dl (32-36); Mean Corpuscular Hemoglobin 25.5 pg (26-34); Mean Platelet Volume 11.7 fl (7.4-10.4); Platelet Count Result 330 k/mm3 (150-375); Red Blood Count 3.21 M/mm3 (4.2-5.4); Red Cell Distribution Width 16.5 % (11.5-14.5); White Blood Count 14.2 K/mm3 (4.5-10.0)
[2021-03-05 06:10] LABS: Alanine Aminotransferase 7 U/L (4-35); Albumin Level 2.7 g/dL (3.5-5.1); Alkaline Phosphatase 57 U/L (38-126); Anion Gap 13 mmol/L (8-16); Aspartate Amino Transferase 21 U/L (14-36); Bilirubin,Total 0.3 mg/dL (0.2-1.3); Blood Urea Nitrogen 24 mg/dL (7-17); Calcium 9.1 mg/dL (8.4-10.2); Carbon Dioxide 17 mmol/L (22-30); Chloride 106 mmol/L (98-107); Estimated CRCL calculation 21 ml/min; Estimated Glomerular Filt Rate 27; Glucose 184 mg/dL (65-105); Sodium 136 mmol/L (137-145)
[2021-03-05 06:34] LABS: Total Cells Counted 100
[2021-03-05 06:35] LABS: Band Neutrophils Percent 9 % (0-6); Basophils Absolute Manual 0.14 K/mm3 (0.0-0.1); Basophils Percent Manual 1 % (0-1); Lymphocytes Absolute Manual 0.42 K/mm3 (1.1-4.5); Lymphocytes Percent Manual 3 % (18-44); Monocytes Absolute Manual 0.71 K/mm3 (0.1-0.90); Monocytes Percent Manual 5 % (3-9); Neutrophils Absolute Manual 12.92 K/mm3 (1.7-7.2); Neutrophils Percent Manual 82 % (46-73)
[2021-03-05 06:36] LABS: Platelet Estimate Adequate (Adequate)
[2021-03-05 06:37] LABS: Anisocytosis 1+ (NORMAL); Hypochromasia 2+ (NORMAL); Large Platelets Present; Polychromasia 1+ (NORMAL)
[2021-03-05] MEDS: FLUTICASONE/SALMETEROL 115-21 MCG INHALER 1 PUFF 2 PUFF INHALATION ×2 (07:54→21:07)
[2021-03-05] MEDS: ISOSORBIDE MONONITRATE 10 MG TABLET PO ×2 (09:47→16:58)
[2021-03-05] MEDS: buPROPion HCL 75 MG TABLET PO ×2 (09:47→16:58)
[2021-03-05] MEDS: FLUoxetine HCL 20 MG CAPSULE 40 MG PO (09:47)
[2021-03-05] MEDS: TICAGRELOR 90 MG TABLET PO ×2 (09:47→20:31)
[2021-03-05] MEDS: FAMOTIDINE 20 MG TABLET 40 MG PO (09:47)
[2021-03-05] MEDS: METOPROLOL TARTRATE 12.5 MG TABLET PO ×2 (09:47→20:31)
[2021-03-05] MEDS: ASPIRIN 81 MG CHEWABLE TABLET PO (09:47)
[2021-03-05] MEDS: VENLAFAXINE HCL 25 MG TABLET PO ×2 (09:47→16:58)
[2021-03-05] MEDS: SACCHAROMYCES BOULARDII 250 MG CAPSULE PO ×2 (09:47→16:58)
--- NOTE | 2021-03-05 11:26 | PC.NURSE ---
patient to swallow study per stretcher.
[2021-03-05] MEDS: VANCOMYCIN ORAL 125 MG/2.5 ML SYRUP PO ×3 (12:28→23:15)
--- NOTE | 2021-03-05 17:03 | PM.IMPN ---
Progress Note: A&P Assessment and Plan (1) Acute UTI: Code(s): N39.0 - Urinary tract infection, site not specified Status: Acute Assessment and Plan: UA with ESBL -Continue Zosyn -blood cultures pending -lactic normal but bicarb low. pH normal (2) Colitis: Code(s): K52.9 - Noninfective gastroenteritis and colitis, unspecified Status: Acute Assessment and Plan: Pt has had a couple of episodes of diarrhea in rehab and again today -continue zosyn, start oral vanc as pt has been on abx and in a healthcare setting with increasing WBC and increasing fevers on IV abx for her UTI -await stool cultures -advance diet (3) Chronic diastolic CHF (congestive heart failure): Code(s): I50.32 - Chronic diastolic (congestive) heart failure Status: Acute Assessment and Plan: Appears a little dry on exam -will give 1L of fluids and monitor fluid balance -hold off on lasix therapy today and may consider restarting in a day or so -continue metorpolol aspirin, and atorvastatin (4) GERD (gastroesophageal reflux disease): Code(s): K21.9 - Gastro-esophageal reflux disease without esophagitis Status: Acute Assessment and Plan: Continue famotidine (5) Atrial fibrillation: Qualifiers: Atrial fibrillation type: paroxysmal Qualified Code(s): I48.0 - Paroxysmal atrial fibrillation Code(s): I48.91 - Unspecified atrial fibrillation Status: Chronic Assessment and Plan: rate controlled -not anticoagulated, however patient on dual anti-platelet therapy -MRI ordered due to confusion (6) Obstructive sleep apnea: Code(s): G47.33 - Obstructive sleep apnea (adult) (pediatric) Status: Acute Assessment and Plan: Continue cpap (7) CKD (chronic kidney disease): Code(s): N18.9 - Chronic kidney disease, unspecified Status: Acute Assessment and Plan: Cr near baseline (8) Altered mental status: Code(s): R41.82 - Altered mental status, unspecified Status: Acute Assessment and Plan: Acute metabolic encephalopathy -as above. Likely due to UTI. MRI ordered Subjective Date/time seen: 03/05/21 17:03 Interval history: Pt is a 75-year-old female here for UTI and colitis. Patient was seen today and was confused but able to hold conversation. patient states she had a couple of diarrhea episodes today and some abdominal pain. She also had some nausea as well. Pt denies vomiting, fevers, chills, constipation, dysuria, cough, chest pain, or shortness of breath. Exam Narrative: Exam Narrative: General: Well developed well nourished patient in NAD HEENT: normocephalic, dry mucus membranes Neck: supple Neuro: Alert and oriented to herself but got confused on where she was, birthday and date (not at her baseline). CN2-12 appeared to be intact. Strength 5/5 in UE and LE. Resp:CTA Abd: Soft, abdominal distended. Pain to palpation to the entire abdomen. Positive bowel sounds Extremities: Chronic right leg swelling (previous sx). No swelling to the left leg. Objective Data Vital Signs Vital Signs: Vital Signs - 24 hr 03/04/21 21:29 03/04/21 22:00 03/04/21 22:31 Temperature 97.3 F L Pulse Rate 91 90 Respiratory Rate 16 Blood Pressure 129/53 L Pulse Oximetry 95 96 03/05/21 01:45 03/05/21 03:39 03/05/21 07:57 Temperature 100.1 F H 100.7 F H Pulse Rate 81 82 Respiratory Rate 18 18 Blood Pressure 138/49 L 154/51 H Pulse Oximetry 95 95 94 03/05/21 08:00 03/05/21 09:47 03/05/21 12:00 Temperature 97.7 F 97.7 F Pulse Rate 83 83 75 Respiratory Rate 18 18 Blood Pressure 130/59 L 135/58 L Pulse Oximetry 98 100 03/05/21 16:00 Temperature 97.7 F Pulse Rate 75 Respiratory Rate 18 Blood Pressure 135/58 L Pulse Oximetry 100 Intake/Output Intake/Output: Intake & Output 03/02/21 03/03/21 03/04/21 03/05/21 23:59 23:5
[2021-03-05] MEDS: LACTATED RINGERS 1,000 ML 80 ML IV CONT (17:53)
[2021-03-06] VITALS (10 sets, daily range): BP systolic 117–144; BP diastolic 48–74; PULSE 77–102; RESP 18–20; TEMP 36.1–37.1; O2SAT 97–99
[2021-03-06] MEDS: VANCOMYCIN ORAL 125 MG/2.5 ML SYRUP PO ×3 (05:10→17:24)
[2021-03-06 05:40] LABS: Hematocrit 30.7 % (37.0-47.0); Hemoglobin 9.2 g/dL (12.0-15.0); Mean Corpuscular Hemoglobin 25.1 pg (26-34); Mean Corpuscular Volume 83.7 fl (80-100); Platelet Count Result 400 k/mm3 (150-375); Red Blood Count 3.67 M/mm3 (4.2-5.4); Red Cell Distribution Width 16.8 % (11.5-14.5); White Blood Count 21.8 K/mm3 (4.5-10.0)
[2021-03-06 05:57] LABS: Anion Gap 9 mmol/L (8-16); Blood Urea Nitrogen 33 mg/dL (7-17); Calcium 9.2 mg/dL (8.4-10.2); Carbon Dioxide 19 mmol/L (22-30); Chloride 105 mmol/L (98-107); Estimated CRCL calculation 21 ml/min; Estimated Glomerular Filt Rate 27; Glucose 217 mg/dL (65-105); Magnesium 1.8 mg/dL (1.6-2.3); Potassium 3.3 mmol/L (3.4-5.0); Sodium 133 mmol/L (137-145)
[2021-03-06 06:16] LABS: Band Neutrophils Percent 13 % (0-6); Lymphocytes Absolute Manual 1.09 K/mm3 (1.1-4.5); Monocytes Absolute Manual 1.74 K/mm3 (0.1-0.90); Monocytes Percent Manual 8 % (3-9); Neutrophils Absolute Manual 18.96 K/mm3 (1.7-7.2); Neutrophils Percent Manual 74 % (46-73); Platelet Estimate Adequate (Adequate); Total Cells Counted 100
[2021-03-06 06:43] LABS: CRP 30.8 mg/dL (<1.0)
[2021-03-06] MEDS: FLUTICASONE/SALMETEROL 115-21 MCG INHALER 1 PUFF 2 PUFF INHALATION ×2 (08:31→20:19)
[2021-03-06] MEDS: buPROPion HCL 75 MG TABLET PO ×2 (09:24→17:26)
[2021-03-06] MEDS: FAMOTIDINE 20 MG TABLET 40 MG PO (09:24)
[2021-03-06] MEDS: ASPIRIN 81 MG CHEWABLE TABLET PO (09:24)
[2021-03-06] MEDS: ATORVASTATIN 40 MG TABLET 80 MG PO (09:24)
[2021-03-06] MEDS: POTASSIUM CHLORIDE 20 MEQ PACKET (FOR LIQUID) 40 MEQ PO (09:24)
[2021-03-06] MEDS: ISOSORBIDE MONONITRATE 10 MG TABLET PO ×2 (09:25→17:26)
[2021-03-06] MEDS: TICAGRELOR 90 MG TABLET PO ×2 (09:25→22:10)
[2021-03-06] MEDS: VENLAFAXINE HCL 25 MG TABLET PO ×2 (09:25→17:26)
[2021-03-06] MEDS: FLUoxetine HCL 20 MG CAPSULE 40 MG PO (09:25)
[2021-03-06] MEDS: SACCHAROMYCES BOULARDII 250 MG CAPSULE PO ×2 (09:25→17:26)
[2021-03-06] MEDS: METOPROLOL TARTRATE 12.5 MG TABLET PO ×2 (09:25→22:10)
--- NOTE | 2021-03-06 09:59 | PM.IMPN ---
Progress Note: A&P Assessment and Plan (1) C. difficile colitis: Code(s): A04.72 - Enterocolitis due to Clostridium difficile, not specified as recurrent Status: Acute Assessment and Plan: Pt is positive for cdiff and was started on oral vanc 03/05/21 after becoming febrile yesterday with her colitis -CT scan re-done today showing worsened pancolitis. She reports no hx of cdiff -Pt has been afebrile since the vanc but her WBC has increased -Will continue oral vanc as it was just started yesterday. If she becomes febrile or WBC continues to worsen, consider changing to Dificid. -isolation in place (2) Acute UTI: Code(s): N39.0 - Urinary tract infection, site not specified Status: Acute Assessment and Plan: UA with ESBL -Continue Zosyn -blood cultures NGTD -lactic normal, bicarb slowly improving (3) Colitis: Code(s): K52.9 - Noninfective gastroenteritis and colitis, unspecified Status: Acute Assessment and Plan: as above (4) Chronic diastolic CHF (congestive heart failure): Code(s): I50.32 - Chronic diastolic (congestive) heart failure Status: Acute Assessment and Plan: Euvolemic today -hold off on lasix therapy today and may consider restarting in a day or so -continue metorpolol aspirin, and atorvastatin (5) GERD (gastroesophageal reflux disease): Code(s): K21.9 - Gastro-esophageal reflux disease without esophagitis Status: Acute Assessment and Plan: Continue famotidine (6) Atrial fibrillation: Qualifiers: Atrial fibrillation type: paroxysmal Qualified Code(s): I48.0 - Paroxysmal atrial fibrillation Code(s): I48.91 - Unspecified atrial fibrillation Status: Chronic Assessment and Plan: RRR on todays exam, rate controlled -not anticoagulated, however patient on dual anti-platelet therapy -MRI ordered due to confusion (7) Obstructive sleep apnea: Code(s): G47.33 - Obstructive sleep apnea (adult) (pediatric) Status: Acute Assessment and Plan: Continue cpap (8) CKD (chronic kidney disease): Code(s): N18.9 - Chronic kidney disease, unspecified Status: Acute Assessment and Plan: Cr near baseline (9) Altered mental status: Code(s): R41.82 - Altered mental status, unspecified Status: Acute Assessment and Plan: Acute metabolic encephalopathy -as above. Likely due to UTI and colitis. MRI ordered (10) Multinodular goiter: Code(s): E04.2 - Nontoxic multinodular goiter Status: Acute Assessment and Plan: CT showed a multinodular goiter -will need outpt u/s. Not needed urgently while she is acutely ill -obtain TSH Subjective Date/time seen: 03/06/21 09:59 Interval history: Pt is a 75-year-old female here for UTI and colitis. Patient was seen today and was confused but able to hold conversation. patient states she has been having lots of diarrhea but denies stomach pain, nausea, or vomiting. She is eating breakfast without issue. Pt denies vomiting, fevers, chills, constipation, cough, chest pain, or shortness of breath. She is upset she has cdiff and denies ever having this diagnosis in the past. Exam Narrative: Exam Narrative: General: Well developed well nourished patient in NAD HEENT: normocephalic, moist mucus membranes Neck: supple Neuro: Alert and oriented to herself, location, and president but not the date or her birthday. CN2-12 appeared to be intact. Strength 5/5 in UE and LE. Resp:CTA CT: RRR slight murmur Abd: Soft, abdominal distended. No pain to palpation to the abdomen today. Positive bowel sounds. Extremities: Chronic right leg swelling (previous sx). No swelling to the left leg. Objective Data Vital Signs Vital Signs: Vital Signs - 24 hr 03/05/21 12:00 03/05/21 16:00 03/05/21 20:31 Temperature 97.7 F 97.7 F Pulse Rate 75 75 80 Re
[2021-03-06 12:01] LABS: Glucose Point of Care 282 mg/dl (65-105)
--- NOTE | 2021-03-06 16:12 | WPDGICN ---
Assessment and Plan Assessment and plan (1) C. difficile colitis: Code(s): A04.72 - Enterocolitis due to Clostridium difficile, not specified as recurrent Status: Acute Assessment and Plan: on oral vancomycin, if tomorrow still persistent leukocytosis consider to switch to dificid consider shorter course of systemic antibiotic for her uti in setting of active C diff colitis get cbc, kub and lactic acid in am (2) SIRS (systemic inflammatory response syndrome): Code(s): R65.10 - Systemic inflammatory response syndrome (SIRS) of non-infectious origin without acute organ dysfunction Status: Acute Assessment and Plan: with leukocytosis and confusion medical support (3) Acute UTI: Code(s): N39.0 - Urinary tract infection, site not specified Status: Acute (4) Acute metabolic encephalopathy: Code(s): G93.41 - Metabolic encephalopathy Status: Acute Assessment and Plan: she is appropriate today (5) Chronic diastolic CHF (congestive heart failure): Code(s): I50.32 - Chronic diastolic (congestive) heart failure Status: Acute Assessment and Plan: stable, on medical management GI Consult Note Consult date/time: 03/06/21 16:12 HPI: Alesha Leo is a 75 year old female with history of COPD, type 2 diabetes mellitus insulin dependent, hypertension, CKD with recent hospitalization treated with antibiotics for UTI and also deconditioning. She is slightly confused and history obtained also from records. She was brought here with worsening confusion abd decreased appetite. Urine culture showed E coli ESBL but she also has C diff and started on vancomycin. CT scan reviewed, showed worsening pancolitis. Review of Systems Constitutional: Constitutional: Reports lethargy Eyes: Eyes: Denies blurry vision ENT: Reports Normal hearing present Cardiovascular: Cardiovascular: Denies chest pain Respiratory: Respiratory: Denies dyspnea Gastrointestinal: Gastrointestinal: Reports diarrhea and Reports nausea Genitourinary: Genitourinary: Reports dysuria Musculoskeletal: Musculoskeletal: Denies neck pain Integumentary/Breasts: Skin/Breast: Denies dry skin Neurologic: Denies headache(s) Psychiatric: Psychiatric: Reports confusion [facility] Past Medical History Medical History (Updated 03/06/21 @ 16:17 by Aj Timmons MD) Acute kidney injury superimposed on chronic kidney disease Acute on chronic congestive heart failure Anemia Anxiety Atrial fibrillation Chronic diastolic CHF (congestive heart failure) Coronary artery disease Depression Diabetes mellitus Diabetic neuropathy Dysphagia, pharyngoesophageal Dyspnea on exertion GERD (gastroesophageal reflux disease) Hyperlipidemia Hypertension Obstructive sleep apnea Peripheral vascular disease Pneumonia SIRS (systemic inflammatory response syndrome) Urinary tract infection Surgical History Surgical History H/O angioplasty H/O breast biopsy History of endarterectomy Hx of CABG Status post insertion of iliac artery stent Family History Family History Mother Hyperlipidemia Hypertension Father Lung cancer Hypertension Social History Social History Social History: patient lives with her spouse in a 2 level home with 2 steps to enter and 12 steps between the level. Bedroom and bathroom are located on the 2nd floor. Prior to admission patient was completely independent requiring no adaptive devices. Patient is able stay at the daughter's house following patient if unable to navigate stairs. former smoker. No alcohol or drug abuse. Smoking packs per day: 1 Smoking cigarettes per day: 20.0 Years smoked: 40 Smoking pack-years: 40.00 Smoking status: Former smoker Alcohol intake: never Subs
[2021-03-06] MEDS: INSULIN ASPART (*BKC) 100 UNITS/ML SUB-Q (18:23)
[2021-03-06 18:34] LABS: Glucose Point of Care 222 mg/dl (65-105)
[2021-03-06 22:21] LABS: Glucose Point of Care 213 mg/dl (65-105)
[2021-03-07] VITALS (9 sets, daily range): BP systolic 114–148; BP diastolic 49–70; PULSE 66–102; RESP 18–20; TEMP 36.1–37.2; O2SAT 93–99
[2021-03-07] MEDS: VANCOMYCIN ORAL 125 MG/2.5 ML SYRUP PO ×2 (00:26→05:40)
[2021-03-07 06:26] LABS: Hematocrit 29.9 % (37.0-47.0); Hemoglobin 8.8 g/dL (12.0-15.0); Mean Corpuscular HGB Conc 29.4 g/dl (32-36); Mean Corpuscular Hemoglobin 24.7 pg (26-34); Mean Platelet Volume 12.1 fl (7.4-10.4); Platelet Count Result 372 k/mm3 (150-375); Red Blood Count 3.56 M/mm3 (4.2-5.4); Red Cell Distribution Width 17.1 % (11.5-14.5); White Blood Count 23.7 K/mm3 (4.5-10.0)
[2021-03-07 07:09] LABS: Alanine Aminotransferase 10 U/L (4-35); Albumin Level 2.4 g/dL (3.5-5.1); Alkaline Phosphatase 90 U/L (38-126); Anion Gap 11 mmol/L (8-16); Aspartate Amino Transferase 20 U/L (14-36); Bilirubin,Total < 0.1 mg/dL (0.2-1.3); Blood Urea Nitrogen 44 mg/dL (7-17); CRP 23.3 mg/dL (<1.0); Calcium 9.1 mg/dL (8.4-10.2); Carbon Dioxide 17 mmol/L (22-30); Chloride 103 mmol/L (98-107); Estimated CRCL calculation 14 ml/min; Estimated Glomerular Filt Rate 17; Glucose 190 mg/dL (65-105); Potassium 3.3 mmol/L (3.4-5.0); Sodium 131 mmol/L (137-145)
[2021-03-07 07:58] LABS: Band Neutrophils Percent 8 % (0-6); Basophils Absolute Manual 0.23 K/mm3 (0.0-0.1); Basophils Percent Manual 1 % (0-1); Eosinophils Absolute Manual 0.23 K/mm3 (0.02-0.5); Eosinophils Percent Manual 1 % (0-4); Lymphocytes Absolute Manual 1.89 K/mm3 (1.1-4.5); Monocytes Absolute Manual 0.94 K/mm3 (0.1-0.90); Monocytes Percent Manual 4 % (3-9); Neutrophils Absolute Manual 20.38 K/mm3 (1.7-7.2); Neutrophils Percent Manual 78 % (46-73); Platelet Estimate Adequate (Adequate); Total Cells Counted 100
[2021-03-07 08:00] LABS: Burr Cells 2+ (NORMAL)
[2021-03-07] MEDS: FLUTICASONE/SALMETEROL 115-21 MCG INHALER 1 PUFF 2 PUFF INHALATION ×2 (08:15→21:39)
[2021-03-07 08:16] LABS: Thyroid Stimulating Hormone Reflex 0.944 uIU/mL (0.465-4.68)
[2021-03-07 08:24] LABS: Glucose Point of Care 171 mg/dl (65-105)
[2021-03-07] MEDS: FAMOTIDINE 20 MG TABLET 40 MG PO (08:25)
[2021-03-07] MEDS: SACCHAROMYCES BOULARDII 250 MG CAPSULE PO ×2 (08:25→16:50)
[2021-03-07] MEDS: VENLAFAXINE HCL 25 MG TABLET PO ×2 (08:25→16:50)
[2021-03-07] MEDS: ISOSORBIDE MONONITRATE 10 MG TABLET PO ×2 (08:25→16:51)
[2021-03-07] MEDS: METOPROLOL TARTRATE 12.5 MG TABLET PO ×2 (08:25→21:03)
[2021-03-07] MEDS: FLUoxetine HCL 20 MG CAPSULE 40 MG PO (08:26)
[2021-03-07] MEDS: IPRATROPIUM NASAL SPRAY 0.03% 15 ML BOTTLE 2 SPRAY NASAL (08:27)
[2021-03-07] MEDS: ASPIRIN 81 MG CHEWABLE TABLET PO (08:27)
[2021-03-07] MEDS: TICAGRELOR 90 MG TABLET PO ×2 (08:27→21:06)
[2021-03-07] MEDS: buPROPion HCL 75 MG TABLET PO ×2 (08:27→16:50)
[2021-03-07] MEDS: LACTATED RINGERS 1,000 ML 70 ML IV CONT (10:11)
[2021-03-07] MEDS: FIDAXOMICIN 200 MG TABLET PO ×2 (10:12→21:05)
[2021-03-07] MEDS: POTASSIUM CHLORIDE 20 MEQ TABLET 40 MEQ PO (10:12)
[2021-03-07] MEDS: metroNIDAZOLE 500 MG/ISO 100ML 500 MG/100 ML BAG 100 MG IVPB ×2 (10:13→17:04)
--- NOTE | 2021-03-07 10:14 | PM.IMPN ---
Progress Note: A&P Assessment and Plan (1) C. difficile colitis: Code(s): A04.72 - Enterocolitis due to Clostridium difficile, not specified as recurrent Status: Acute Assessment and Plan: Pt is positive for cdiff and was started on oral vanc 03/05/21 after becoming febrile with worsening colitis on CT -Spoke with Dr. Black, ID, who agrees with switching to Dificid and recommends adding IV flagyl -WBC slightly increasing, no further fevers -isolation in place -no hx of cdiff (2) Acute UTI: Code(s): N39.0 - Urinary tract infection, site not specified Status: Acute Assessment and Plan: UA with ESBL -Dr. Black has recommended stopping zosyn and monitoring. She had no urological symptoms on presentation and the abdomen may have been tender from the colitis. If this changes, he would start her on a carbapenem -blood cultures NGTD -lactic normal, bicarb waxes and wane. Likely due to GI loss/diarrhea (3) Colitis: Code(s): K52.9 - Noninfective gastroenteritis and colitis, unspecified Status: Acute Assessment and Plan: as above (4) Chronic diastolic CHF (congestive heart failure): Code(s): I50.32 - Chronic diastolic (congestive) heart failure Status: Acute Assessment and Plan: appears euvolemic today, abrupt change in kidney dysfunction -Will start fluids due to diarrhea and dehydration but will have to monitor closely for overload -lasix on hold -continue metorpolol aspirin, and atorvastatin (5) GERD (gastroesophageal reflux disease): Code(s): K21.9 - Gastro-esophageal reflux disease without esophagitis Status: Acute Assessment and Plan: Continue famotidine (6) Atrial fibrillation: Qualifiers: Atrial fibrillation type: paroxysmal Qualified Code(s): I48.0 - Paroxysmal atrial fibrillation Code(s): I48.91 - Unspecified atrial fibrillation Status: Chronic Assessment and Plan: RRR on todays exam, rate controlled -not anticoagulated, however patient on dual anti-platelet therapy -MRI ordered due to confusion (7) Obstructive sleep apnea: Code(s): G47.33 - Obstructive sleep apnea (adult) (pediatric) Status: Acute Assessment and Plan: Continue cpap (8) CKD (chronic kidney disease): Code(s): N18.9 - Chronic kidney disease, unspecified Status: Acute Assessment and Plan: Cr jumped today, could be due to diarrhea and dehydration -will give fluids today and recheck tomorrow. If it has not improved, consider renal u/s and nephrology consult -i do not suspect this is from the possible UTI at this time (9) Altered mental status: Code(s): R41.82 - Altered mental status, unspecified Status: Acute Assessment and Plan: Acute metabolic encephalopathy -as above. Likely due to UTI and colitis. MRI ordered (10) Multinodular goiter: Code(s): E04.2 - Nontoxic multinodular goiter Status: Acute Assessment and Plan: CT showed a multinodular goiter -will need outpt u/s. Not needed urgently while she is acutely ill -TSH normal Subjective Date/time seen: 03/07/21 10:14 Interval history: Pt is a 75-year-old female here for colitis. Patient was seen today and was confused but able to hold conversation. patient states she has been having lots of diarrhea and some slight stomach pain. She denies nausea and vomiting. Pt denies vomiting, fevers, chills, constipation, cough, chest pain, or shortness of breath. Exam Narrative: Exam Narrative: General: Well developed well nourished patient in NAD HEENT: normocephalic, moist mucus membranes Neck: supple Neuro: Alert and oriented to herself, and president but not the date, location or her birthday. CN2-12 appeared to be intact. Strength 5/5 in UE and LE. Resp:CTA CT: RRR slight murmur Abd: Soft, abdominal distended. Pain to palpation in the left lo
--- NOTE | 2021-03-07 12:37 | PCOTNOTE ---
Attempted to see patient this pm, however patient declined stating I don't feel well. Pt unable to eat lunch due to feeling sick to her stomach at this time.
[2021-03-07 13:02] LABS: Glucose Point of Care 187 mg/dl (65-105)
--- NOTE | 2021-03-07 14:24 | WPDGIPROGNO ---
Progress Note: A&P Assessment and Plan (1) C. difficile colitis: Code(s): A04.72 - Enterocolitis due to Clostridium difficile, not specified as recurrent Status: Acute Assessment and Plan: agree to switch to dificid and iv flagyl since had elevation of wbc no abdominal pain today but continue to monitor, also had normal lactic kub with colitis but no megacolon- monitor closely, surgery consult if worsening clinical course (2) SIRS (systemic inflammatory response syndrome): Code(s): R65.10 - Systemic inflammatory response syndrome (SIRS) of non-infectious origin without acute organ dysfunction Status: Acute Assessment and Plan: from c diff zosyn was discontinued (3) Acute metabolic encephalopathy: Code(s): G93.41 - Metabolic encephalopathy Status: Acute (4) Acute UTI: Code(s): N39.0 - Urinary tract infection, site not specified Status: Acute (5) Acute renal insufficiency: Code(s): N28.9 - Disorder of kidney and ureter, unspecified Status: Acute Assessment and Plan: continue to monitor renal function Subjective Date/time seen: 03/07/21 14:24 Interval history: she denies abdominal pain but still some diarrhea. Review of Systems Review of Systems: All systems reviewed & are unremarkable except as noted in HPI and below Exam Const: General: no acute distress and ill appearing chronically HENMT: General nose exam: Normal nares present Eyes: Sclera: sclerae normal Neck: Neck: supple Resp: Auscultation: clear to auscultation bilaterally Cardio: Rhythm: regular rhythm GI: GI Palp: Yes Soft to palpation, No Firmness to palpation present (GI) and No Guarding due to palpation present (GI) Auscultation: abnormal bowel sounds (hypoactive) Skin: General skin exam: normal color Neuro: Speech: normal speech Motor exam (neuro): Normal motor muscle tone present throughout Extrem: General: no edema Psych: Affect: normal affect Objective Data Vital Signs Vital Signs: Vital Signs - 24 hr 03/06/21 18:00 03/06/21 20:23 03/06/21 22:00 Temperature 97.2 F L 97.1 F L Pulse Rate 80 82 Respiratory Rate 18 20 Blood Pressure 119/54 L 125/48 L Pulse Oximetry 97 97 98 03/06/21 22:10 03/07/21 00:00 03/07/21 04:00 Temperature 97.0 F L 97.2 F L Pulse Rate 80 77 76 Respiratory Rate 20 20 Blood Pressure 129/64 138/53 L Pulse Oximetry 98 98 03/07/21 08:25 03/07/21 08:27 03/07/21 10:00 Temperature 98.9 F Pulse Rate 77 102 H Respiratory Rate 20 20 Blood Pressure 114/49 L Pulse Oximetry 98 93 Intake/Output Intake/Output: Intake & Output 03/04/21 03/05/21 03/06/21 03/07/21 23:59 23:59 23:59 23:59 Intake Total 740 1300 1989 560 Output Total 400 Balance 340 1300 1989 560 Meds/Results Medications: Active Medications Generic Name Dose Route Start Last Admin Trade Name Freq PRN Reason Stop Dose Admin Albuterol 2 puff 03/04/21 11:39 Albuterol Sulfate (*Sp) Aerosol 1 Puff INHALATION Q6H PRN Shortness Of Breath Or Wheezing Aspirin 81 mg 03/05/21 08:00 03/07/21 08:27 Aspirin 81 Mg Chewable Tablet PO 81 mg DAILY@0800 GERRI Administration Atorvastatin Calcium 80 mg 03/06/21 09:00 03/06/21 09:24 Atorvastatin 40 Mg Tablet PO 80 mg Q48HR GERRI Administration Bupropion HCl 75 mg 03/04/21 17:00 03/07/21 08:27 Bupropion Hcl 75 Mg Tablet PO 75 mg BID GERRI Administration Dextrose 12.5 gm 03/06/21 10:18 Dextrose 50% 25 Gm/50 Ml Syringe IV PUSH PRN PRN Hypoglycemia Protocol Famotidine 40 mg 03/05/21 09:00 03/07/21 08:25 Famotidine 20 Mg Tablet PO 40 mg DAILY GERRI Administration Fidaxomicin 200 mg 03/07/21 09:00 03/07/21 10:12 Fidaxomicin 200 Mg Tablet PO 200 mg Q12HR GERRI Administration Fluoxetine HCl 40 mg 03/05/21 09:00 03/07/21 08:26 Fluoxetine Hcl 20 Mg Capsule PO 40 mg DAILY GERRI Administration Glucagon 1
[2021-03-07 17:26] LABS: Glucose Point of Care 185 mg/dl (65-105)
[2021-03-07 23:51] LABS: Glucose Point of Care 206 mg/dl (65-105)
[2021-03-08] VITALS (8 sets, daily range): BP systolic 120–136; BP diastolic 60–78; PULSE 62–82; RESP 16–20; TEMP 36.3–36.8; O2SAT 95–99
[2021-03-08] MEDS: metroNIDAZOLE 500 MG/ISO 100ML 500 MG/100 ML BAG 100 MG IVPB ×3 (02:21→17:19)
[2021-03-08] MEDS: LACTATED RINGERS 1,000 ML 70 ML IV CONT (05:30)
[2021-03-08 05:43] LABS: Basophils Absolute Auto 0.1 K/mm3 (0.0-0.1); Basophils Percent Auto 0.5 % (0.2-1.2); Eosinophils Absolute Auto 0.5 K/mm3 (0-0.3); Eosinophils Percent Auto 2.5 % (0-4.4); Hematocrit 32.1 % (37.0-47.0); Hemoglobin 9.6 g/dL (12.0-15.0); Immature Granulocyte Absolute 1.05 K/mm3 (0.00-0.031); Immature Granulocyte Percent A 4.8 % (0-0.5); Lymphocytes Absolute Auto 1.76 K/mm3 (0.9-3.2); Mean Corpuscular HGB Conc 29.9 g/dl (32-36); Mean Corpuscular Hemoglobin 24.9 pg (26-34); Mean Corpuscular Volume 83.2 fl (80-100); Monocytes Absolute Auto 1.5 K/mm3 (0.1-0.6); Monocytes Percent Auto 6.8 % (2.6-8.5); Neutrophils Absolute Auto 17.1 K/mm3 (1.3-6.7); Neutrophils Percent Auto 77.4 % (45.5-73.1); Nucleated Red Blood Cells Perc 0.1 % (0.0-0.2); Red Blood Count 3.86 M/mm3 (4.2-5.4); Red Cell Distribution Width 17.6 % (11.5-14.5)
[2021-03-08 06:08] LABS: Anion Gap 12 mmol/L (8-16); Blood Urea Nitrogen 48 mg/dL (7-17); CRP 15.3 mg/dL (<1.0); Calcium 9.1 mg/dL (8.4-10.2); Carbon Dioxide 17 mmol/L (22-30); Chloride 103 mmol/L (98-107); Estimated CRCL calculation 11 ml/min; Estimated Glomerular Filt Rate 13; Glucose 192 mg/dL (65-105); Potassium 3.8 mmol/L (3.4-5.0); Sodium 132 mmol/L (137-145)
[2021-03-08 07:52] LABS: Platelet Clumps Present; Platelet Estimate Increased (Adequate)
[2021-03-08 07:53] LABS: Burr Cells 1+ (NORMAL)
[2021-03-08 08:30] LABS: Glucose Point of Care 230 mg/dl (65-105)
[2021-03-08] MEDS: FLUTICASONE/SALMETEROL 115-21 MCG INHALER 1 PUFF 2 PUFF INHALATION ×2 (09:42→17:55)
[2021-03-08] MEDS: FAMOTIDINE 20 MG TABLET 40 MG PO (09:56)
[2021-03-08] MEDS: ATORVASTATIN 40 MG TABLET 80 MG PO (09:56)
[2021-03-08] MEDS: FIDAXOMICIN 200 MG TABLET PO ×2 (09:57→21:26)
[2021-03-08] MEDS: buPROPion HCL 75 MG TABLET PO ×2 (09:59→17:20)
[2021-03-08] MEDS: ISOSORBIDE MONONITRATE 10 MG TABLET PO ×2 (09:59→17:20)
[2021-03-08] MEDS: FLUoxetine HCL 20 MG CAPSULE 40 MG PO (09:59)
[2021-03-08] MEDS: VENLAFAXINE HCL 25 MG TABLET PO ×2 (09:59→17:21)
[2021-03-08] MEDS: METOPROLOL TARTRATE 12.5 MG TABLET PO ×2 (10:00→21:26)
[2021-03-08] MEDS: ASPIRIN 81 MG CHEWABLE TABLET PO (10:00)
[2021-03-08] MEDS: SACCHAROMYCES BOULARDII 250 MG CAPSULE PO ×2 (10:00→17:21)
[2021-03-08] MEDS: TICAGRELOR 90 MG TABLET PO ×2 (10:00→21:28)
--- NOTE | 2021-03-08 10:07 | PCNFU ---
Nutrition Follow-Up Complete: Inadequate oral intake related to inability to consume foods orally due to confusion and lethargy as evidence by NPO diet order and 0% intake Goal: Total intake will meet estimated kcal and protein needs Patient is progressing towards goal. No new goal at this time. Pt current nutrition is Heart healthy and Diabetic consistent carbohydrate diet with level 6 soft and bite sized as well as thickened liquids Last recorded weight is 70.9 kg. Recommend re-weighing patient to track any weight loss. Bowel Motility: +BM 03/07/2021 Labs Reviewed: Hgb 9.6, Hct 32.1, Na 132, GFR 13, BUN 48, Cr 3.5, Glu 192 Meds Noted: Albuterol, Lipitor, Pepcid, Prozac, Novolog, Lopressor, Effexor, Brilinta, Ismo, Dificid, Wellbutrin Additional Notes: Patient has not been eating very well, consuming 10-25% of meals. If nutritional intake does not increase would recommend advanced nutrition support depending on patient and families wishes. Closely monitor meal consumption. She is receiving ensure compact BID providing her with an additional 220 calories and 9 grams of protein. Diet plan, Swallow Eval, labs, weight every three days
[2021-03-08 10:23] LABS: Glucose Point of Care 243 mg/dl (65-105)
[2021-03-08] MEDS: INSULIN ASPART (*BKC) 100 UNITS/ML SUB-Q ×2 (10:25→12:03)
--- NOTE | 2021-03-08 10:38 | PM.IMPN ---
Progress Note: A&P Assessment and Plan (1) C. difficile colitis: Code(s): A04.72 - Enterocolitis due to Clostridium difficile, not specified as recurrent Status: Acute Assessment and Plan: Pt is positive for cdiff and was started on oral vanc 03/05/21 after becoming febrile with worsening colitis on CT -Spoke with Dr. Ross ID, who agrees with switching to Dificid and recommends adding IV flagyl -WBC trending down and is currently at 22.0 -no further fevers -isolation in place -no hx of cdiff (2) Acute UTI: Code(s): N39.0 - Urinary tract infection, site not specified Status: Acute Assessment and Plan: UA with ESBL -Dr. Black has recommended stopping zosyn and monitoring. She had no urological symptoms on presentation and the abdomen may have been tender from the colitis. If this changes, he would start her on a carbapenem -blood cultures NGTD -lactic normal, bicarb waxes and wane. Likely due to GI loss/diarrhea (3) Colitis: Code(s): K52.9 - Noninfective gastroenteritis and colitis, unspecified Status: Acute Assessment and Plan: as above (4) Chronic diastolic CHF (congestive heart failure): Code(s): I50.32 - Chronic diastolic (congestive) heart failure Status: Acute Assessment and Plan: appears euvolemic today, abrupt change in kidney dysfunction -2+ pitting edema noted on exam -Will start fluids due to diarrhea and dehydration but will have to monitor closely for overload -lasix on hold -continue metorpolol aspirin, and atorvastatin (5) GERD (gastroesophageal reflux disease): Code(s): K21.9 - Gastro-esophageal reflux disease without esophagitis Status: Acute Assessment and Plan: Continue famotidine (6) Atrial fibrillation: Qualifiers: Atrial fibrillation type: paroxysmal Qualified Code(s): I48.0 - Paroxysmal atrial fibrillation Code(s): I48.91 - Unspecified atrial fibrillation Status: Chronic Assessment and Plan: RRR on todays exam, rate controlled -not anticoagulated, however patient on dual anti-platelet therapy -MRI ordered due to confusion (7) Obstructive sleep apnea: Code(s): G47.33 - Obstructive sleep apnea (adult) (pediatric) Status: Acute Assessment and Plan: Continue cpap (8) CKD (chronic kidney disease): Code(s): N18.9 - Chronic kidney disease, unspecified Status: Acute Assessment and Plan: Cr jumped today, could be due to diarrhea and dehydration -will give fluids today and recheck tomorrow. Kept the fluids due to mental status and lack of PO intake -renal u/s showed no hydronephrosis with normal kidney size -nephrology consult thank you -BUN/CR 48/3.50 -i do not suspect this is from the possible UTI at this time (9) Altered mental status: Code(s): R41.82 - Altered mental status, unspecified Status: Acute Assessment and Plan: Acute metabolic encephalopathy -as above. Likely due to UTI and colitis. MRI ordered (10) Multinodular goiter: Code(s): E04.2 - Nontoxic multinodular goiter Status: Acute Assessment and Plan: CT showed a multinodular goiter -will need outpt u/s. Not needed urgently while she is acutely ill -TSH normal Time Spent With Patient Time with patient: Greater than 35 minutes Subjective Date/time seen: 03/08/21 09:15 Interval history: patient is a 75-year-old female with the past medical history of dyslipidemia, reflux, COPD, type 2 diabetes, hypertension, and chronic kidney disease who presented to the ED with increased confusion on 03/04/2021. Look at the notes this patient has been confused since this admission however she just discharged from [facility] and was fully independent with eating, walking, and managing most personal care test. Today patient is still confused seems to be really selective on answering questions or talking
[2021-03-08 12:01] LABS: Glucose Point of Care 201 mg/dl (65-105)
--- NOTE | 2021-03-08 15:34 | WPDGIPROGNO ---
Progress Note: A&P Assessment and Plan (1) C. difficile colitis: Code(s): A04.72 - Enterocolitis due to Clostridium difficile, not specified as recurrent Status: Acute Assessment and Plan: she is now on dificid and iv flagyl with stable wbc, continue to monitor and trend eating more but still poor appetite kub with colitis but no megacolon- monitor closely, surgery consult if worsening clinical course (2) SIRS (systemic inflammatory response syndrome): Code(s): R65.10 - Systemic inflammatory response syndrome (SIRS) of non-infectious origin without acute organ dysfunction Status: Acute Assessment and Plan: from c diff zosyn was discontinued by id recommendations (also had + urine culture) (3) Acute metabolic encephalopathy: Code(s): G93.41 - Metabolic encephalopathy Status: Acute (4) Acute UTI: Code(s): N39.0 - Urinary tract infection, site not specified Status: Acute (5) Acute renal insufficiency: Code(s): N28.9 - Disorder of kidney and ureter, unspecified Status: Acute Assessment and Plan: worsening creatinine today by primary Subjective Date/time seen: 03/08/21 15:34 Interval history: still diarrhea and some abdominal pain, she says that is feeling better today and is sitting up in chair Review of Systems Review of Systems: All systems reviewed & are unremarkable except as noted in HPI and below Exam Const: General: no acute distress and ill appearing chronically HENMT: General nose exam: Normal nares present Eyes: Sclera: sclerae normal Neck: Neck: supple Resp: Auscultation: clear to auscultation bilaterally Cardio: Rhythm: regular rhythm GI: GI Palp: Yes Soft to palpation, No Firmness to palpation present (GI) and No Guarding due to palpation present (GI) Auscultation: abnormal bowel sounds (hypoactive) Skin: General skin exam: normal color Neuro: Speech: normal speech Motor exam (neuro): Normal motor muscle tone present throughout Extrem: General: no edema Psych: Affect: normal affect Objective Data Vital Signs Vital Signs: Vital Signs - 24 hr 03/07/21 18:00 03/07/21 20:00 03/07/21 21:03 Temperature 97.6 F 97.4 F L Pulse Rate 66 75 72 Respiratory Rate 18 20 Blood Pressure 140/70 125/58 L Pulse Oximetry 98 98 03/08/21 00:00 03/08/21 04:00 03/08/21 09:35 Temperature 97.3 F L 97.9 F 97.5 F L Pulse Rate 82 76 74 Respiratory Rate 18 18 18 Blood Pressure 132/60 136/63 134/60 Pulse Oximetry 97 98 96 03/08/21 10:00 03/08/21 12:00 Temperature 97.5 F L Pulse Rate 72 80 Respiratory Rate 16 16 Blood Pressure 120/61 Pulse Oximetry 95 97 Intake/Output Intake/Output: Intake & Output 03/05/21 03/06/21 03/07/21 03/08/21 23:59 23:59 23:59 23:59 Intake Total 1300 1989 1320 1590 Balance 1300 1989 1320 1590 Meds/Results Medications: Active Medications Generic Name Dose Route Start Last Admin Trade Name Freq PRN Reason Stop Dose Admin Albuterol 2 puff 03/04/21 11:39 Albuterol Sulfate (*Sp) Aerosol 1 Puff INHALATION Q6H PRN Shortness Of Breath Or Wheezing Aspirin 81 mg 03/05/21 08:00 03/08/21 10:00 Aspirin 81 Mg Chewable Tablet PO 81 mg DAILY@0800 GERRI Administration Atorvastatin Calcium 80 mg 03/06/21 09:00 03/08/21 09:56 Atorvastatin 40 Mg Tablet PO 80 mg Q48HR GERRI Administration Bupropion HCl 75 mg 03/04/21 17:00 03/08/21 09:59 Bupropion Hcl 75 Mg Tablet PO 75 mg BID GERRI Administration Dextrose 12.5 gm 03/06/21 10:18 Dextrose 50% 25 Gm/50 Ml Syringe IV PUSH PRN PRN Hypoglycemia Protocol Famotidine 40 mg 03/05/21 09:00 03/08/21 09:56 Famotidine 20 Mg Tablet PO 40 mg DAILY GERRI Administration Fidaxomicin 200 mg 03/07/21 09:00 03/08/21 09:57 Fidaxomicin 200 Mg Tablet PO 200 mg Q12HR GERRI Administration Fluoxetine HCl 40 mg 03/05/21 09:00 03/08/21 09:59 Fluoxetine Hcl 20 Mg Capsule
--- NOTE | 2021-03-08 16:32 | PM.CNNEP ---
Assessment and Plan Assessment and plan (1) KEITH (acute kidney injury): Code(s): N17.9 - Acute kidney failure, unspecified Status: Acute Assessment and Plan: likely due to several issues: - prerenal factors - poor oral intake/diarrhea - acute infection (UTI) - relative hypotension (?) follow-up on renal ultrasound could check urine lytes but in the setting of infection and diuretic use, may be hard to interpret gentle IVF hydration (but has edema already) follow trend of repeat labs and UOP (2) Chronic kidney disease, stage IV (severe): Code(s): N18.4 - Chronic kidney disease, stage 4 (severe) Status: Chronic Assessment and Plan: baseline creatinine seems to run ~ 1.6 - 2.2mg/dl presumably due to HTN, DM, vascular disease and age (3) Urinary tract infection: Qualifiers: Urinary tract infection type: site unspecified Hematuria presence: without hematuria Qualified Code(s): N39.0 - Urinary tract infection, site not specified Code(s): N39.0 - Urinary tract infection, site not specified Status: Acute Assessment and Plan: highly suggested by UA on admission on antibiotics culture with ESBL E. coli (4) Altered mental status: Code(s): R41.82 - Altered mental status, unspecified Status: Acute Assessment and Plan: has been waxing and waning since admission due to infection +/- KEITH follow trend of mentation (5) Colitis: Code(s): K52.9 - Noninfective gastroenteritis and colitis, unspecified Status: Acute Assessment and Plan: noted to be C. diff positive continue current therapy Will continue to follow. History of Present Illness Reason for Consult Consult date: 03/08/21 Reason for consult: acute renal failure (on chronic kidney disease) Chief Complaint Chief complaint: Colitis, UTI, Metabolic Encephalopathy History of Present Illness Narrative: The patient is a 75-year-old female with past medical history as outlined below who presented to [facility] ER with altered mental status/confusion. The patient was just recently discharged from the rehab center at [facility] after a recent hospitalization with resultant deconditioning. Following her discharge, her daughter noted that the patient has had recent issues and problems with confusion. Associated with the confusion include decreased appetite as well as increased lethargy. No reported fevers, chills, rigors, cough, or productive cough. As her mental status continued to deteriorate, she finally presented to the emergency room for further evaluation. Workup and evaluation the a emergency room demonstrated the patient to be hemodynamically stable but clearly confused. Routine blood test demonstrated a significant decline in her kidney function along with a urinalysis that was highly suggestive of a urinary tract infection. The presumption was that the acute urinary tract infection was the cause of her altered mental status and acute renal failure. After appropriate cultures were obtained, she was started on IV antibiotic therapy and subsequent mid the hospital for further evaluation. Since her admission, her urinary tract infection has yielded ESBL E coli and her stool studies for her diarrhea have demonstrated C diff colitis. She has been started on appropriate antibiotic therapy for these conditions but more concern is the fact that her kidney function is not significantly improved despite conservative therapy. Renal consultation was requested due to her acute kidney injury on top of chronic kidney disease. From review her records here at [facility], it seems her baseline creatinine normally runs around 1.6-2.2 mg/dL presumably secondary to hypertension, diabetes, vascular disease as well as age-related change. Her creatinine on admission was in high three pedrito range but she did not hav
[2021-03-08 17:04] LABS: Glucose Point of Care 185 mg/dl (65-105)
[2021-03-08 23:13] LABS: Glucose Point of Care 181 mg/dl (65-105)
[2021-03-09] VITALS (7 sets, daily range): BP systolic 108–154; BP diastolic 60–72; PULSE 73–83; RESP 16–20; TEMP 36.2–37; O2SAT 98–100
[2021-03-09] MEDS: LACTATED RINGERS 1,000 ML 70 ML IV CONT (00:37)
[2021-03-09] MEDS: metroNIDAZOLE 500 MG/ISO 100ML 500 MG/100 ML BAG 100 MG IVPB ×3 (02:21→17:48)
[2021-03-09 05:48] LABS: Hematocrit 29.8 % (37.0-47.0); Hemoglobin 8.9 g/dL (12.0-15.0); Mean Corpuscular HGB Conc 29.9 g/dl (32-36); Mean Corpuscular Hemoglobin 24.7 pg (26-34); Mean Corpuscular Volume 82.5 fl (80-100); Mean Platelet Volume 11.5 fl (7.4-10.4); Platelet Count Result 431 k/mm3 (150-375); Red Blood Count 3.61 M/mm3 (4.2-5.4); Red Cell Distribution Width 17.2 % (11.5-14.5); White Blood Count 13.9 K/mm3 (4.5-10.0)
[2021-03-09 06:07] LABS: Alanine Aminotransferase 9 U/L (4-35); Albumin Level 2.3 g/dL (3.5-5.1); Alkaline Phosphatase 73 U/L (38-126); Anion Gap 8 mmol/L (8-16); Aspartate Amino Transferase 22 U/L (14-36); Bilirubin,Total 0.2 mg/dL (0.2-1.3); Blood Urea Nitrogen 52 mg/dL (7-17); Calcium 8.4 mg/dL (8.4-10.2); Carbon Dioxide 17 mmol/L (22-30); Chloride 107 mmol/L (98-107); Estimated CRCL calculation 12 ml/min; Estimated Glomerular Filt Rate 13; Glucose 149 mg/dL (65-105); Potassium 3.8 mmol/L (3.4-5.0); Sodium 132 mmol/L (137-145)
[2021-03-09 06:31] LABS: Band Neutrophils Percent 4 % (0-6); Eosinophils Absolute Manual 0.27 K/mm3 (0.02-0.5); Eosinophils Percent Manual 2 % (0-4); Lymphocytes Absolute Manual 1.11 K/mm3 (1.1-4.5); Metamyelocytes Percent 3 %; Monocytes Absolute Manual 0.55 K/mm3 (0.1-0.90); Monocytes Percent Manual 4 % (3-9); Neutrophils Absolute Manual 11.53 K/mm3 (1.7-7.2); Neutrophils Percent Manual 79 % (46-73); Platelet Estimate Increased (Adequate); Total Cells Counted 100
[2021-03-09 06:34] LABS: Burr Cells 1+ (NORMAL); Poikilocytosis 1+ (NORMAL)
[2021-03-09 08:37] LABS: Glucose Point of Care 168 mg/dl (65-105)
[2021-03-09] MEDS: FLUTICASONE/SALMETEROL 115-21 MCG INHALER 1 PUFF 2 PUFF INHALATION ×2 (09:44→19:58)
--- NOTE | 2021-03-09 10:08 | PCNFU ---
Nutrition Follow-Up Complete: Inadequate oral intake related to inability to consume foods orally due to confusion and lethary as evidence by NPO diet order and 0% intake Goal: Total intake will meet estimated kcal and protein needs Patient is progressing towards goal. No new goal at this time. Pt current nutrition is diabetic consistent carbohydrate and heart healthy with level 6 soft and bite sized and thickened liquids. Last recorded weight is 70.9 kg. Recommend re-weighing patient prior to discharge to track weight loss. Bowel Motility: +BM 03/08/2021 Labs Reviewed: Hgb 8.9, Hct 29.8, Alb 2.3, Na 132, GFR 13, BUN 52, Cr 3.4, Glu 149 Meds Noted: Albuterol, Lipitor, Wellbutrin, Prozac, Novolog, Ismo, Lopressor, Florastor, Effexor, Brilinta Additional Notes: Spoke with patient. She stated she has an okay appetite consuming 0-10% of meals. She is receiving ensure compact BID providing her with an additional 220 calories and 9 grams of protein and does not like it. When asked if she had any questions regarding her diet she said no. She eats when she feels like it and does not eat when she does not feel like it . If meal consumption does not increase within the next three days we may need to think about advanced nutrition support depending on patient and families wishes. Closely monitor weight fluctuation and meal intake over the next couple of days. Diet plan, Swallow Eval, labs, weight every three days
[2021-03-09] MEDS: ASPIRIN 81 MG CHEWABLE TABLET PO (10:47)
[2021-03-09] MEDS: FIDAXOMICIN 200 MG TABLET PO ×2 (10:47→21:53)
[2021-03-09] MEDS: FAMOTIDINE 20 MG TABLET 40 MG PO (10:48)
[2021-03-09] MEDS: VENLAFAXINE HCL 25 MG TABLET PO ×2 (10:48→17:48)
[2021-03-09] MEDS: buPROPion HCL 75 MG TABLET PO ×2 (10:48→17:49)
[2021-03-09] MEDS: FLUoxetine HCL 20 MG CAPSULE 40 MG PO (10:48)
[2021-03-09] MEDS: METOPROLOL TARTRATE 12.5 MG TABLET PO ×2 (10:48→21:53)
[2021-03-09] MEDS: TICAGRELOR 90 MG TABLET PO ×2 (10:49→21:54)
[2021-03-09] MEDS: ISOSORBIDE MONONITRATE 10 MG TABLET PO ×2 (10:49→17:48)
[2021-03-09] MEDS: SACCHAROMYCES BOULARDII 250 MG CAPSULE PO ×2 (10:49→17:48)
--- NOTE | 2021-03-09 11:23 | PM.IMPN ---
Progress Note: A&P Assessment and Plan (1) C. difficile colitis: Code(s): A04.72 - Enterocolitis due to Clostridium difficile, not specified as recurrent Status: Acute Assessment and Plan: Pt is positive for cdiff and was started on oral vanc 03/05/21 after becoming febrile with worsening colitis on CT -Spoke with TEENA Marrero, who agrees with switching to Dificid and recommends adding IV flagyl -WBC trending down and is currently at 22.0 -no further fevers -isolation in place -no hx of cdiff (2) Acute UTI: Code(s): N39.0 - Urinary tract infection, site not specified Status: Acute Assessment and Plan: UA with ESBL -Dr. Black has recommended stopping zosyn and monitoring. She had no urological symptoms on presentation and the abdomen may have been tender from the colitis. If this changes, he would start her on a carbapenem -blood cultures NGTD -lactic normal, bicarb waxes and wane. Likely due to GI loss/diarrhea (3) Colitis: Code(s): K52.9 - Noninfective gastroenteritis and colitis, unspecified Status: Acute Assessment and Plan: as above (4) Chronic diastolic CHF (congestive heart failure): Code(s): I50.32 - Chronic diastolic (congestive) heart failure Status: Acute Assessment and Plan: appears euvolemic today, abrupt change in kidney dysfunction -2+ pitting edema noted on exam - Fluids were DC today -continue metorpolol aspirin, and atorvastatin (5) GERD (gastroesophageal reflux disease): Code(s): K21.9 - Gastro-esophageal reflux disease without esophagitis Status: Acute Assessment and Plan: Continue famotidine (6) Atrial fibrillation: Qualifiers: Atrial fibrillation type: paroxysmal Qualified Code(s): I48.0 - Paroxysmal atrial fibrillation Code(s): I48.91 - Unspecified atrial fibrillation Status: Chronic Assessment and Plan: RRR on todays exam, rate controlled -not anticoagulated, however patient on dual anti-platelet therapy -MRI ordered due to confusion (7) Obstructive sleep apnea: Code(s): G47.33 - Obstructive sleep apnea (adult) (pediatric) Status: Acute Assessment and Plan: Continue cpap (8) CKD (chronic kidney disease): Code(s): N18.9 - Chronic kidney disease, unspecified Status: Acute Assessment and Plan: Cr jumped today, could be due to diarrhea and dehydration - p.o. intake is better fluids have been DC'd -renal u/s showed no hydronephrosis with normal kidney size -nephrology consult thank you -BUN/CR 52/3.40 -i do not suspect this is from the possible UTI at this time (9) Altered mental status: Code(s): R41.82 - Altered mental status, unspecified Status: Acute Assessment and Plan: Acute metabolic encephalopathy - seems better today as she is able to hold a conversation answer questions appropriately feed Herself -as above. Likely due to UTI and colitis. -MRI ordered however still waiting on the right documentation for her stents (10) Multinodular goiter: Code(s): E04.2 - Nontoxic multinodular goiter Status: Acute Assessment and Plan: CT showed a multinodular goiter -will need outpt u/s. Not needed urgently while she is acutely ill -TSH normal Subjective Date/time seen: 03/09/21 09:05 Interval history: patient is a 75-year-old female with the past medical history of dyslipidemia, reflux, COPD, type 2 diabetes, hypertension, and chronic kidney disease who presented to the ED with increased confusion on 03/04/2021. today patient seems lot better she is able to hold a conversation she is up in her bed eating. She is drinking as well. She can't tell me where she is who she is date month year. She still does have diarrhea which she said she has had 2-3 times today. She was also able to tell me who did her stent placement in her leg and will
[2021-03-09 12:04] LABS: Glucose Point of Care 221 mg/dl (65-105)
[2021-03-09] MEDS: INSULIN ASPART (*BKC) 100 UNITS/ML SUB-Q (12:57)
[2021-03-09] MEDS: FUROSEMIDE INJ 40 MG/4 ML VIAL 20 MG IV PUSH (12:59)
--- NOTE | 2021-03-09 14:14 | PM.PNNEP ---
Progress Note: A&P Assessment and Plan (1) KEITH (acute kidney injury): Code(s): N17.9 - Acute kidney failure, unspecified Status: Acute Assessment and Plan: likely due to several issues: - prerenal factors - poor oral intake/diarrhea - acute infection (UTI) - relative hypotension (?) renal ultrasound without any acute issues could check urine lytes but in the setting of infection and diuretic use, may be hard to interpret gentle IVFs but will likely need to d/c given swelling/edema follow trend of repeat labs and UOP (2) Chronic kidney disease, stage IV (severe): Code(s): N18.4 - Chronic kidney disease, stage 4 (severe) Status: Chronic Assessment and Plan: baseline creatinine seems to run ~ 1.6 - 2.2mg/dl presumably due to HTN, DM, vascular disease and age (3) Urinary tract infection: Qualifiers: Urinary tract infection type: site unspecified Hematuria presence: without hematuria Qualified Code(s): N39.0 - Urinary tract infection, site not specified Code(s): N39.0 - Urinary tract infection, site not specified Status: Acute Assessment and Plan: highly suggested by UA on admission on antibiotics culture with ESBL E. coli (4) Altered mental status: Code(s): R41.82 - Altered mental status, unspecified Status: Acute Assessment and Plan: has been waxing and waning since admission due to infection +/- KEITH follow trend of mentation (5) Colitis: Code(s): K52.9 - Noninfective gastroenteritis and colitis, unspecified Status: Acute Assessment and Plan: noted to be C. diff positive continue current therapy Will continue to follow. Subjective Date/time seen: 03/09/21 14:14 Mental status continues to fluctuate; worsening swelling/edema with IVF resuscitation; no acute issues or problems at his time; no events overnight or earlier this AM. Exam Narrative: Exam Narrative: General: WD/WN female in NAD Heart: normal S1 and S2; no rub Lungs: clear to auscultation Abdomen: soft, nontender, nondistended, positive bowel sounds Extremities: no cyanosis or clubbing; 2+ edema Skin: warm and dry Objective Data Vital Signs Vital Signs: Vital Signs Temp Pulse Resp BP Pulse Ox 03/09/21 13:32 36.4 C 80 16 108/64 100 03/09/21 10:00 36.6 C 83 16 128/64 100 03/09/21 04:00 36.2 C L 77 20 154/69 H 99 03/09/21 00:00 37.0 C 73 20 133/60 98 03/08/21 21:26 62 03/08/21 20:00 36.8 C 79 20 129/78 99 03/08/21 16:00 36.3 C L 78 16 128/62 97 Intake/Output Intake/Output: Intake & Output 03/06/21 03/07/21 03/08/21 03/09/21 23:59 23:59 23:59 23:59 Intake Total 1989 1320 2930 160 Balance 1989 1320 2930 160 Meds/Results Medications: Active Medications Generic Name Dose Route Start Last Admin Trade Name Freq PRN Reason Stop Dose Admin Albuterol 2 puff 03/04/21 11:39 Albuterol Sulfate (*Sp) Aerosol 1 Puff INHALATION Q6H PRN Shortness Of Breath Or Wheezing Aspirin 81 mg 03/05/21 08:00 03/09/21 10:47 Aspirin 81 Mg Chewable Tablet PO 81 mg DAILY@0800 GERRI Administration Atorvastatin Calcium 80 mg 03/06/21 09:00 03/08/21 09:56 Atorvastatin 40 Mg Tablet PO 80 mg Q48HR GERRI Administration Bupropion HCl 75 mg 03/04/21 17:00 03/09/21 10:48 Bupropion Hcl 75 Mg Tablet PO 75 mg BID GERRI Administration Dextrose 12.5 gm 03/06/21 10:18 Dextrose 50% 25 Gm/50 Ml Syringe IV PUSH PRN PRN Hypoglycemia Protocol Famotidine 40 mg 03/05/21 09:00 03/09/21 10:48 Famotidine 20 Mg Tablet PO 40 mg DAILY GERRI Administration Fidaxomicin 200 mg 03/07/21 09:00 03/09/21 10:47 Fidaxomicin 200 Mg Tablet PO 200 mg Q12HR GERRI Administration Fluoxetine HCl 40 mg 03/05/21 09:00 03/09/21 10:48 Fluoxetine Hcl 20 Mg Capsule PO 40 mg DAILY GERRI Administr
--- NOTE | 2021-03-09 14:34 | WPDGIPROGNO ---
Progress Note: A&P Assessment and Plan (1) C. difficile colitis: Code(s): A04.72 - Enterocolitis due to Clostridium difficile, not specified as recurrent Status: Acute Assessment and Plan: continue with dificid and iv flagyl wbc is improved and patient overall better (2) SIRS (systemic inflammatory response syndrome): Code(s): R65.10 - Systemic inflammatory response syndrome (SIRS) of non-infectious origin without acute organ dysfunction Status: Acute Assessment and Plan: from c diff and resolved (3) Acute metabolic encephalopathy: Code(s): G93.41 - Metabolic encephalopathy Status: Acute (4) Acute UTI: Code(s): N39.0 - Urinary tract infection, site not specified Status: Acute (5) Acute renal insufficiency: Code(s): N28.9 - Disorder of kidney and ureter, unspecified Status: Acute Assessment and Plan: monitoring creatinine, by primary Subjective Date/time seen: 03/09/21 14:34 Interval history: still with loose stool but no pain and eating more. She is up and eating now, family member at bedside Review of Systems Review of Systems: All systems reviewed & are unremarkable except as noted in HPI and below Exam Const: General: no acute distress and ill appearing chronically HENMT: General nose exam: Normal nares present Eyes: Sclera: sclerae normal Neck: Neck: supple Resp: Auscultation: clear to auscultation bilaterally Cardio: Rhythm: regular rhythm GI: GI Palp: Yes Soft to palpation, No Firmness to palpation present (GI) and No Guarding due to palpation present (GI) Auscultation: abnormal bowel sounds (hypoactive) Skin: General skin exam: normal color Neuro: Speech: normal speech Motor exam (neuro): Normal motor muscle tone present throughout Extrem: General: no edema Psych: Affect: normal affect Objective Data Vital Signs Vital Signs: Vital Signs - 24 hr 03/08/21 16:00 03/08/21 20:00 03/08/21 21:26 Temperature 97.4 F L 98.3 F Pulse Rate 78 79 62 Respiratory Rate 16 20 Blood Pressure 128/62 129/78 Pulse Oximetry 97 99 03/09/21 00:00 03/09/21 04:00 03/09/21 10:00 Temperature 98.6 F 97.2 F L 97.8 F Pulse Rate 73 77 83 Respiratory Rate 20 20 16 Blood Pressure 133/60 154/69 H 128/64 Pulse Oximetry 98 99 100 03/09/21 13:32 Temperature 97.6 F Pulse Rate 80 Respiratory Rate 16 Blood Pressure 108/64 Pulse Oximetry 100 Intake/Output Intake/Output: Intake & Output 03/06/21 03/07/21 03/08/21 03/09/21 23:59 23:59 23:59 23:59 Intake Total 1989 1320 2930 160 Balance 1989 1320 2930 160 Meds/Results Medications: Active Medications Generic Name Dose Route Start Last Admin Trade Name Freq PRN Reason Stop Dose Admin Albuterol 2 puff 03/04/21 11:39 Albuterol Sulfate (*Sp) Aerosol 1 Puff INHALATION Q6H PRN Shortness Of Breath Or Wheezing Aspirin 81 mg 03/05/21 08:00 03/09/21 10:47 Aspirin 81 Mg Chewable Tablet PO 81 mg DAILY@0800 GERRI Administration Atorvastatin Calcium 80 mg 03/06/21 09:00 03/08/21 09:56 Atorvastatin 40 Mg Tablet PO 80 mg Q48HR GERRI Administration Bupropion HCl 75 mg 03/04/21 17:00 03/09/21 10:48 Bupropion Hcl 75 Mg Tablet PO 75 mg BID GERRI Administration Dextrose 12.5 gm 03/06/21 10:18 Dextrose 50% 25 Gm/50 Ml Syringe IV PUSH PRN PRN Hypoglycemia Protocol Famotidine 40 mg 03/05/21 09:00 03/09/21 10:48 Famotidine 20 Mg Tablet PO 40 mg DAILY GERRI Administration Fidaxomicin 200 mg 03/07/21 09:00 03/09/21 10:47 Fidaxomicin 200 Mg Tablet PO 200 mg Q12HR GERRI Administration Fluoxetine HCl 40 mg 03/05/21 09:00 03/09/21 10:48 Fluoxetine Hcl 20 Mg Capsule PO 40 mg DAILY GERRI Administration Glucagon 1 mg 03/06/21 10:18 Glucagon For Inj 1 Mg Vial IM PRN PRN Hypoglycemia Protocol Glucose 15 gm 03/06/21 10:18 Glucose Oral Gel 15 Gm Of Glucse In 37.5 Gm
[2021-03-09 17:15] LABS: Glucose Point of Care 195 mg/dl (65-105)
[2021-03-09 22:05] LABS: Glucose Point of Care 199 mg/dl (65-105)
[2021-03-10] VITALS (9 sets, daily range): BP systolic 141–147; BP diastolic 62–74; PULSE 68–76; RESP 18–20; TEMP 35.9–37.2; O2SAT 98–100
[2021-03-10] MEDS: metroNIDAZOLE 500 MG/ISO 100ML 500 MG/100 ML BAG 100 MG IVPB ×3 (01:02→17:03)
[2021-03-10 06:00] LABS: Basophils Absolute Auto 0.1 K/mm3 (0.0-0.1); Basophils Percent Auto 0.7 % (0.2-1.2); Eosinophils Absolute Auto 0.3 K/mm3 (0-0.3); Eosinophils Percent Auto 2.4 % (0-4.4); Hematocrit 30.1 % (37.0-47.0); Immature Granulocyte Absolute 1.01 K/mm3 (0.00-0.031); Immature Granulocyte Percent A 7.5 % (0-0.5); Lymphocytes Absolute Auto 1.87 K/mm3 (0.9-3.2); Mean Corpuscular HGB Conc 29.9 g/dl (32-36); Mean Corpuscular Volume 83.6 fl (80-100); Mean Platelet Volume 11.7 fl (7.4-10.4); Monocytes Percent Auto 7.7 % (2.6-8.5); Neutrophils Absolute Auto 9.1 K/mm3 (1.3-6.7); Neutrophils Percent Auto 67.7 % (45.5-73.1); Nucleated Red Blood Cells Perc 0.1 % (0.0-0.2); Platelet Count Result 401 k/mm3 (150-375); Red Cell Distribution Width 17.4 % (11.5-14.5); White Blood Count 13.4 K/mm3 (4.5-10.0)
[2021-03-10 06:09] LABS: Alanine Aminotransferase 9 U/L (4-35); Albumin Level 2.3 g/dL (3.5-5.1); Alkaline Phosphatase 61 U/L (38-126); Anion Gap 10 mmol/L (8-16); Aspartate Amino Transferase 19 U/L (14-36); Bilirubin,Total 0.2 mg/dL (0.2-1.3); Blood Urea Nitrogen 54 mg/dL (7-17); Calcium 8.4 mg/dL (8.4-10.2); Carbon Dioxide 15 mmol/L (22-30); Chloride 105 mmol/L (98-107); Estimated CRCL calculation 12 ml/min; Estimated Glomerular Filt Rate 14; Glucose 163 mg/dL (65-110); Magnesium 2.1 mg/dL (1.6-2.3); Potassium 3.2 mmol/L (3.4-5.0); Sodium 130 mmol/L (137-145)
[2021-03-10 06:57] LABS: Burr Cells 1+ (NORMAL); Ovalocytes 1+ (NORMAL); Platelet Estimate Increased (Adequate); Poikilocytosis 1+ (NORMAL)
[2021-03-10] MEDS: FLUTICASONE/SALMETEROL 115-21 MCG INHALER 1 PUFF 2 PUFF INHALATION ×2 (07:37→21:54)
[2021-03-10 07:54] LABS: NT Pro B Type Natriuretic Pept 1600 pg/mL (5-100)
[2021-03-10 07:58] LABS: Glucose Point of Care 163 mg/dl (65-105)
--- NOTE | 2021-03-10 08:08 | PM.IMPN ---
Progress Note: A&P Assessment and Plan (1) C. difficile colitis: Code(s): A04.72 - Enterocolitis due to Clostridium difficile, not specified as recurrent Status: Acute Assessment and Plan: Pt is positive for cdiff and was started on oral vanc 03/05/21 after becoming febrile with worsening colitis on CT -Spoke with Dr. Ross, [place], who agrees with switching to Dificid and recommends adding IV flagyl -WBC trending down and is currently at 13.4 -no further fevers -isolation in place -no hx of cdiff -Florastor 250mg PO BID -Add Banatrol to slow down the BMs (2) Acute kidney injury superimposed on chronic kidney disease: Code(s): N17.9 - Acute kidney failure, unspecified; N18.9 - Chronic kidney disease, unspecified Status: Acute Assessment and Plan: Was thought to be dehydrated from acute mental status change and no PO intake, now looks to be like fluid overload Fluids given for 2 day with increase in BUN/Cr peaked at 54/3.50 Fluids DC'd 03/09/21 20mg of lasix given 03/09/21 3+ pitting edema noted on exam 40mg of lasix today Strict I&Os Chest xray shows Benita B lines and pulmonary edema Trend BUN/Cr Labs in the am BNP today was 1600 (3) Acute UTI: Code(s): N39.0 - Urinary tract infection, site not specified Status: Acute Assessment and Plan: UA with ESBL -Dr. Black has recommended stopping zosyn and monitoring. She had no urological symptoms on presentation and the abdomen may have been tender from the colitis. If this changes, he would start her on a carbapenem -blood cultures NGTD -lactic normal, bicarb waxes and wane. Likely due to GI loss/diarrhea (4) Colitis: Code(s): K52.9 - Noninfective gastroenteritis and colitis, unspecified Status: Acute Assessment and Plan: as above (5) Chronic diastolic CHF (congestive heart failure): Code(s): I50.32 - Chronic diastolic (congestive) heart failure Status: Acute Assessment and Plan: appears to be fluid overloaded today -BNP 1800 -will give 40mg of IV lasix and see how she responds on labs -3+ pitting edema noted on exam -Fluids were DC'd 03/09/21 -continue metorpolol aspirin, and atorvastatin (6) GERD (gastroesophageal reflux disease): Code(s): K21.9 - Gastro-esophageal reflux disease without esophagitis Status: Acute Assessment and Plan: Continue famotidine (7) Atrial fibrillation: Qualifiers: Atrial fibrillation type: paroxysmal Qualified Code(s): I48.0 - Paroxysmal atrial fibrillation Code(s): I48.91 - Unspecified atrial fibrillation Status: Chronic Assessment and Plan: RRR on todays exam, rate controlled -not anticoagulated, however patient on dual anti-platelet therapy -MRI ordered due to confusion (8) Obstructive sleep apnea: Code(s): G47.33 - Obstructive sleep apnea (adult) (pediatric) Status: Acute Assessment and Plan: Continue cpap (9) CKD (chronic kidney disease): Code(s): N18.9 - Chronic kidney disease, unspecified Status: Acute Assessment and Plan: Cr jumped today, could be due to diarrhea and dehydration - p.o. intake is better fluids have been DC'd -renal u/s showed no hydronephrosis with normal kidney size -nephrology consult thank you -BUN/CR 54/3.20 -Could be from fluid overload -Cr trending down after 20mg of IV lasix (10) Altered mental status: Code(s): R41.82 - Altered mental status, unspecified Status: Acute Assessment and Plan: Acute metabolic encephalopathy------Resolved - seems better today as she is able to hold a conversation answer questions appropriately feed Herself -as above. Likely due to UTI and colitis. -MRI ordered however still waiting on the right documentation for her stents (11) Multinodular goiter: Code(s): E04.2 - Nontoxic multinodular goiter
[2021-03-10] MEDS: FUROSEMIDE INJ 40 MG/4 ML VIAL IV PUSH (08:52)
[2021-03-10] MEDS: TICAGRELOR 90 MG TABLET PO ×2 (09:06→20:39)
[2021-03-10] MEDS: ASPIRIN 81 MG CHEWABLE TABLET PO (09:07)
[2021-03-10] MEDS: FAMOTIDINE 20 MG TABLET 40 MG PO (09:07)
[2021-03-10] MEDS: ISOSORBIDE MONONITRATE 10 MG TABLET PO ×2 (09:07→17:03)
[2021-03-10] MEDS: SACCHAROMYCES BOULARDII 250 MG CAPSULE PO ×2 (09:08→17:02)
[2021-03-10] MEDS: VENLAFAXINE HCL 25 MG TABLET PO ×2 (09:08→17:03)
[2021-03-10] MEDS: FLUoxetine HCL 20 MG CAPSULE 40 MG PO (09:09)
[2021-03-10] MEDS: ATORVASTATIN 40 MG TABLET 80 MG PO (09:09)
[2021-03-10] MEDS: METOPROLOL TARTRATE 12.5 MG TABLET PO ×2 (09:09→20:39)
[2021-03-10] MEDS: buPROPion HCL 75 MG TABLET PO ×2 (09:09→17:02)
[2021-03-10] MEDS: FIDAXOMICIN 200 MG TABLET PO ×2 (09:12→20:38)
--- NOTE | 2021-03-10 10:20 | PCOTNOTE ---
Attempted to see patient this am, however patient refused stating, I'm not in the mood.
--- NOTE | 2021-03-10 12:45 | PCOTNOTE ---
Attempted to see patient this pm, however patient refused stating, Nope. I don't feel worth a darn.
--- NOTE | 2021-03-10 13:22 | PCPTNOTE ---
Patient refused treatment this session at 09:10am, due to being too tired and not in the mood. Will continue per POC.
--- NOTE | 2021-03-10 13:55 | PCSTNOTE ---
3 attempts made to see patient for ST services. Initial attempt, patient was with OT. Patient refused 2nd and 3rd attempts, c/o poor appetite and stomach ache. Will re-attempt ST tomorrow.
[2021-03-10 14:00] LABS: Glucose Point of Care 199 mg/dl (65-105)
--- NOTE | 2021-03-10 14:21 | PM.PNNEP ---
Progress Note: A&P Assessment and Plan (1) KEITH (acute kidney injury): Code(s): N17.9 - Acute kidney failure, unspecified Status: Acute Assessment and Plan: likely due to several issues: - prerenal factors - poor oral intake/diarrhea - acute infection (UTI) - relative hypotension (?) renal ultrasound without any acute issues could check urine lytes but in the setting of infection and diuretic use, may be hard to interpret limit IVFs given swelling/edema - may follow trend of repeat labs and UOP (2) Chronic kidney disease, stage IV (severe): Code(s): N18.4 - Chronic kidney disease, stage 4 (severe) Status: Chronic Assessment and Plan: baseline creatinine seems to run ~ 1.6 - 2.2mg/dl presumably due to HTN, DM, vascular disease and age (3) Urinary tract infection: Qualifiers: Urinary tract infection type: site unspecified Hematuria presence: without hematuria Qualified Code(s): N39.0 - Urinary tract infection, site not specified Code(s): N39.0 - Urinary tract infection, site not specified Status: Acute Assessment and Plan: highly suggested by UA on admission on antibiotics culture with ESBL E. coli (4) Altered mental status: Code(s): R41.82 - Altered mental status, unspecified Status: Acute Assessment and Plan: has been waxing and waning since admission due to infection +/- KEITH follow trend of mentation (5) Colitis: Code(s): K52.9 - Noninfective gastroenteritis and colitis, unspecified Status: Acute Assessment and Plan: noted to be C. diff positive continue current therapy Will continue to follow. Subjective Date/time seen: 03/10/21 14:21 No acute distress voiced at the time of my visit; remains hemodynamically stable at this time; renal function seems to have improved only slightly with IVFs; no acute distress voiced. Exam Narrative: Exam Narrative: General: WD/WN female in NAD Heart: normal S1 and S2; no rub Lungs: clear to auscultation Abdomen: soft, nontender, nondistended, positive bowel sounds Extremities: no cyanosis or clubbing; 2+ edema Skin: warm and dry Objective Data Vital Signs Vital Signs: Vital Signs Temp Pulse Resp BP Pulse Ox 03/10/21 14:00 35.9 C L 72 18 143/72 H 99 03/10/21 10:00 37.0 C 75 20 143/74 H 100 03/10/21 09:09 75 03/10/21 07:41 100 03/10/21 04:00 36.8 C 75 20 141/73 H 98 03/10/21 00:00 37.2 C 68 20 143/64 H 99 03/09/21 21:53 79 03/09/21 20:00 36.2 C L 79 20 153/72 H 98 03/09/21 18:00 36.6 C 79 18 124/64 100 Intake/Output Intake/Output: Intake & Output 03/07/21 03/08/21 03/09/21 03/10/21 23:59 23:59 23:59 23:59 Intake Total 1320 2930 960 100 Balance 1320 2930 960 100 Meds/Results Medications: Active Medications Generic Name Dose Route Start Last Admin Trade Name Freq PRN Reason Stop Dose Admin Albuterol 2 puff 03/04/21 11:39 Albuterol Sulfate (*Sp) Aerosol 1 Puff INHALATION Q6H PRN Shortness Of Breath Or Wheezing Aspirin 81 mg 03/05/21 08:00 03/10/21 09:07 Aspirin 81 Mg Chewable Tablet PO 81 mg DAILY@0800 GERRI Administration Atorvastatin Calcium 80 mg 03/06/21 09:00 03/10/21 09:09 Atorvastatin 40 Mg Tablet PO 80 mg Q48HR GERRI Administration Bupropion HCl 75 mg 03/04/21 17:00 03/10/21 09:09 Bupropion Hcl 75 Mg Tablet PO 75 mg BID GERRI Administration Dextrose 12.5 gm 03/06/21 10:18 Dextrose 50% 25 Gm/50 Ml Syringe IV PUSH PRN PRN Hypoglycemia Protocol Famotidine 40 mg 03/05/21 09:00 03/10/21 09:07 Famotidine 20 Mg Tablet PO 40 mg DAILY GERRI Administration Fidaxomicin 200 mg 03/07/21 09:00 03/10/21 09:12 Fidaxomicin 200 Mg Tablet PO 200 mg Q12HR GERRI Administration Fluoxetine HCl 40 mg 03/05/21 09:00 03/10/21 09:09 Fluoxetine Hcl
[2021-03-10 17:39] LABS: Glucose Point of Care 210 mg/dl (65-105)
[2021-03-10] MEDS: INSULIN ASPART (*BKC) 100 UNITS/ML SUB-Q (18:22)
[2021-03-10 21:35] LABS: Glucose Point of Care 198 mg/dl (65-105)
[2021-03-11] VITALS (8 sets, daily range): BP systolic 142–177; BP diastolic 66–75; PULSE 69–97; RESP 14–20; TEMP 36.2–36.8; O2SAT 98–100
[2021-03-11] MEDS: metroNIDAZOLE 500 MG/ISO 100ML 500 MG/100 ML BAG 100 MG IVPB ×3 (01:08→17:38)
[2021-03-11 05:54] LABS: Hematocrit 31.5 % (37.0-47.0); Hemoglobin 9.4 g/dL (12.0-15.0); Mean Corpuscular HGB Conc 29.8 g/dl (32-36); Mean Corpuscular Hemoglobin 24.7 pg (26-34); Mean Corpuscular Volume 82.7 fl (80-100); Mean Platelet Volume 11.3 fl (7.4-10.4); Platelet Count Result 460 k/mm3 (150-375); Red Blood Count 3.81 M/mm3 (4.2-5.4); Red Cell Distribution Width 17.2 % (11.5-14.5); White Blood Count 16.8 K/mm3 (4.5-10.0)
[2021-03-11 06:13] LABS: Alanine Aminotransferase 9 U/L (4-35); Albumin Level 2.5 g/dL (3.5-5.1); Alkaline Phosphatase 70 U/L (38-126); Anion Gap 11 mmol/L (8-16); Aspartate Amino Transferase 21 U/L (14-36); Bilirubin,Total 0.3 mg/dL (0.2-1.3); Blood Urea Nitrogen 52 mg/dL (7-17); Calcium 8.7 mg/dL (8.4-10.2); Carbon Dioxide 17 mmol/L (22-30); Chloride 104 mmol/L (98-107); Estimated CRCL calculation 12 ml/min; Estimated Glomerular Filt Rate 14; Glucose 164 mg/dL (65-110); Magnesium 2.1 mg/dL (1.6-2.3); Sodium 132 mmol/L (137-145)
--- NOTE | 2021-03-11 07:44 | PM.IMPN ---
Progress Note: A&P Assessment and Plan (1) C. difficile colitis: Code(s): A04.72 - Enterocolitis due to Clostridium difficile, not specified as recurrent Status: Acute Assessment and Plan: Pt is positive for cdiff and was started on oral vanc 03/05/21 after becoming febrile with worsening colitis on CT -Spoke with Dr. Ross, [place], who agrees with switching to Dificid and recommends adding IV flagyl -WBC trending down and is currently at 13.4 -no further fevers -isolation in place -no hx of cdiff -Florastor 250mg PO BID -Add Banatrol to slow down the BMs (2) Acute kidney injury superimposed on chronic kidney disease: Code(s): N17.9 - Acute kidney failure, unspecified; N18.9 - Chronic kidney disease, unspecified Status: Acute Assessment and Plan: Was thought to be dehydrated from acute mental status change and no PO intake, now looks to be like fluid overload Fluids given for 2 day with increase in BUN/Cr peaked at 54/3.50 Fluids DC'd 03/09/21 20mg of lasix given 03/09/21 3+ pitting edema noted on exam 40mg of lasix repeated since renal failure has not gotten worse or better Strict I&Os Chest xray was read as cardiomeagly with chronic interstitial lung disease Trend BUN/Cr Labs in the am BNP was 1600 03/10/21 (3) Acute UTI: Code(s): N39.0 - Urinary tract infection, site not specified Status: Acute Assessment and Plan: UA with ESBL -Dr. Black has recommended stopping zosyn and monitoring. She had no urological symptoms on presentation and the abdomen may have been tender from the colitis. If this changes, he would start her on a carbapenem -blood cultures NGTD -lactic normal, bicarb waxes and wane. Likely due to GI loss/diarrhea (4) Colitis: Code(s): K52.9 - Noninfective gastroenteritis and colitis, unspecified Status: Acute Assessment and Plan: as above (5) Chronic diastolic CHF (congestive heart failure): Code(s): I50.32 - Chronic diastolic (congestive) heart failure Status: Acute Assessment and Plan: appears to be fluid overloaded today -BNP 1800 -will give 40mg of IV lasix since renal function is not better or worse -3+ pitting edema noted on exam -Fluids were DC'd 03/09/21 -continue metorpolol aspirin, and atorvastatin (6) GERD (gastroesophageal reflux disease): Code(s): K21.9 - Gastro-esophageal reflux disease without esophagitis Status: Acute Assessment and Plan: Continue famotidine (7) Atrial fibrillation: Qualifiers: Atrial fibrillation type: paroxysmal Qualified Code(s): I48.0 - Paroxysmal atrial fibrillation Code(s): I48.91 - Unspecified atrial fibrillation Status: Chronic Assessment and Plan: RRR on todays exam, rate controlled -not anticoagulated, however patient on dual anti-platelet therapy -MRI ordered due to confusion (8) Obstructive sleep apnea: Code(s): G47.33 - Obstructive sleep apnea (adult) (pediatric) Status: Acute Assessment and Plan: Continue cpap (9) CKD (chronic kidney disease): Code(s): N18.9 - Chronic kidney disease, unspecified Status: Acute Assessment and Plan: Cr jumped today, could be due to diarrhea and dehydration - p.o. intake is better fluids have been DC'd -renal u/s showed no hydronephrosis with normal kidney size -nephrology consult thank you -BUN/CR 52/3.20 -Could be from fluid overload (10) Altered mental status: Code(s): R41.82 - Altered mental status, unspecified Status: Acute Assessment and Plan: Acute metabolic encephalopathy------Resolved - seems better today as she is able to hold a conversation answer questions appropriately feed Herself -as above. Likely due to UTI and colitis. -MRI ordered however still waiting on the right documentation for her stents (11) Multinodular goiter: Code
[2021-03-11 08:11] LABS: Glucose Point of Care 165 mg/dl (65-105)
[2021-03-11] MEDS: buPROPion HCL 75 MG TABLET PO ×2 (09:04→17:05)
[2021-03-11] MEDS: FIDAXOMICIN 200 MG TABLET PO ×2 (09:04→20:54)
[2021-03-11] MEDS: FLUoxetine HCL 20 MG CAPSULE 40 MG PO (09:04)
[2021-03-11] MEDS: VENLAFAXINE HCL 25 MG TABLET PO ×2 (09:04→17:04)
[2021-03-11] MEDS: METOPROLOL TARTRATE 12.5 MG TABLET PO ×2 (09:04→20:54)
[2021-03-11] MEDS: FAMOTIDINE 20 MG TABLET 40 MG PO (09:04)
[2021-03-11] MEDS: ASPIRIN 81 MG CHEWABLE TABLET PO (09:05)
[2021-03-11] MEDS: TICAGRELOR 90 MG TABLET PO ×2 (09:05→20:55)
[2021-03-11] MEDS: SACCHAROMYCES BOULARDII 250 MG CAPSULE PO ×2 (09:05→17:05)
[2021-03-11] MEDS: FUROSEMIDE INJ 40 MG/4 ML VIAL IV PUSH (09:05)
[2021-03-11] MEDS: POTASSIUM CHLORIDE 20 MEQ PACKET (FOR LIQUID) 40 MEQ PO (09:05)
[2021-03-11] MEDS: ISOSORBIDE MONONITRATE 10 MG TABLET PO ×2 (09:05→17:05)
[2021-03-11] MEDS: FLUTICASONE/SALMETEROL 115-21 MCG INHALER 1 PUFF 2 PUFF INHALATION ×2 (09:35→19:52)
[2021-03-11 12:12] LABS: Glucose Point of Care 226 mg/dl (65-105)
[2021-03-11] MEDS: INSULIN ASPART (*BKC) 100 UNITS/ML SUB-Q (13:09)
--- NOTE | 2021-03-11 14:07 | PM.PNNEP ---
Progress Note: A&P Assessment and Plan (1) KEITH (acute kidney injury): Code(s): N17.9 - Acute kidney failure, unspecified Status: Acute Assessment and Plan: likely due to several issues: - prerenal factors - poor oral intake/diarrhea - acute infection (UTI) - relative hypotension (?) renal ultrasound without any acute issues could check urine lytes but in the setting of infection and diuretic use, may be hard to interpret off IVFs -- IV lasix PRN follow trend of repeat labs and UOP (2) Chronic kidney disease, stage IV (severe): Code(s): N18.4 - Chronic kidney disease, stage 4 (severe) Status: Chronic Assessment and Plan: baseline creatinine seems to run ~ 1.6 - 2.2mg/dl presumably due to HTN, DM, vascular disease and age (3) Urinary tract infection: Qualifiers: Urinary tract infection type: site unspecified Hematuria presence: without hematuria Qualified Code(s): N39.0 - Urinary tract infection, site not specified Code(s): N39.0 - Urinary tract infection, site not specified Status: Acute Assessment and Plan: highly suggested by UA on admission on antibiotics culture with ESBL E. coli (4) Altered mental status: Code(s): R41.82 - Altered mental status, unspecified Status: Acute Assessment and Plan: has been waxing and waning since admission due to infection +/- KEITH follow trend of mentation (5) Colitis: Code(s): K52.9 - Noninfective gastroenteritis and colitis, unspecified Status: Acute Assessment and Plan: noted to be C. diff positive continue current therapy Will continue to follow. Subjective Date/time seen: 03/11/21 14:07 Still with on/off confusion and now with worsening swelling/edema so IVFs discontinued and given IV diuretics; no other issues voiced at this time; no apparent distress; states she does not feel well but difficult for her to elaborate. Exam Narrative: Exam Narrative: General: WD/WN female in NAD Heart: normal S1 and S2; no rub Lungs: decreasd at bases Abdomen: soft, nontender, nondistended, positive bowel sounds Extremities: no cyanosis or clubbing; 2 - 3+ edema Skin: warm and dry Objective Data Vital Signs Vital Signs: Vital Signs Temp Pulse Resp BP Pulse Ox 03/11/21 13:30 36.4 C L 72 14 149/67 H 100 03/11/21 09:04 78 03/11/21 08:00 36.2 C L 73 18 177/66 H 99 03/11/21 04:00 36.8 C 97 20 155/67 H 98 03/11/21 00:00 36.6 C 69 20 146/75 H 99 03/10/21 21:56 100 03/10/21 20:39 72 03/10/21 20:00 36.0 C L 76 20 147/62 H 99 Intake/Output Intake/Output: Intake & Output 03/08/21 03/09/21 03/10/21 03/11/21 23:59 23:59 23:59 23:59 Intake Total 2930 960 300 680 Balance 2930 960 300 680 Meds/Results Medications: Active Medications Generic Name Dose Route Start Last Admin Trade Name Freq PRN Reason Stop Dose Admin Albuterol 2 puff 03/04/21 11:39 Albuterol Sulfate (*Sp) Aerosol 1 Puff INHALATION Q6H PRN Shortness Of Breath Or Wheezing Aspirin 81 mg 03/05/21 08:00 03/11/21 09:05 Aspirin 81 Mg Chewable Tablet PO 81 mg DAILY@0800 GERRI Administration Atorvastatin Calcium 80 mg 03/06/21 09:00 03/10/21 09:09 Atorvastatin 40 Mg Tablet PO 80 mg Q48HR GERRI Administration Bupropion HCl 75 mg 03/04/21 17:00 03/11/21 17:05 Bupropion Hcl 75 Mg Tablet PO 75 mg BID GERRI Administration Dextrose 12.5 gm 03/06/21 10:18 Dextrose 50% 25 Gm/50 Ml Syringe IV PUSH PRN PRN Hypoglycemia Protocol Famotidine 40 mg 03/05/21 09:00 03/11/21 09:04 Famotidine 20 Mg Tablet PO 40 mg DAILY GERRI Administration Fidaxomicin 200 mg 03/07/21 09:00 03/11/21 09:04 Fidaxomicin 200 Mg Tablet PO 200 mg Q12HR GERRI Administration Fluoxetine HCl 40 mg 03/05/21 09:00 03/11/21 09:04 Fluoxetine Hcl 20 Mg C
--- NOTE | 2021-03-11 14:29 | PCPTNOTE ---
Patient refused treatment this session due to I'm too tired and trying to take a nap! Will continue per POC.
[2021-03-11] MEDS: POTASSIUM CHLORIDE 20 MEQ TABLET 40 MEQ PO (17:04)
[2021-03-11 17:56] LABS: Glucose Point of Care 168 mg/dl (65-105)
[2021-03-11 20:44] LABS: Glucose Point of Care 184 mg/dl (65-105)
[2021-03-12] VITALS (9 sets, daily range): BP systolic 128–158; BP diastolic 68–76; PULSE 71–79; RESP 16–20; TEMP 36.3–36.6; O2SAT 96–99
[2021-03-12] MEDS: metroNIDAZOLE 500 MG/ISO 100ML 500 MG/100 ML BAG 100 MG IVPB ×3 (02:06→16:56)
--- NOTE | 2021-03-12 08:19 | P.PNNP_ITS ---
Progress Note: A&P Assessment and Plan (1) KEITH (acute kidney injury): Code(s): N17.9 - Acute kidney failure, unspecified Status: Acute Assessment and Plan: * likely due to several issues: - prerenal factors - poor oral intake/diarrhea - acute infection (UTI) - relative hypotension (?) * renal ultrasound without any acute issues * labs pending for today. * Continue IV antibiotics. (2) Chronic kidney disease, stage IV (severe): Code(s): N18.4 - Chronic kidney disease, stage 4 (severe) Status: Chronic Assessment and Plan: * baseline creatinine seems to run ~ 1.6 - 2.2mg/dl * presumably due to HTN, DM, vascular disease and age (3) Urinary tract infection: Qualifiers: Urinary tract infection type: site unspecified Hematuria presence: without hematuria Qualified Code(s): N39.0 - Urinary tract infection, site not specified Code(s): N39.0 - Urinary tract infection, site not specified Status: Acute Assessment and Plan: * highly suggested by UA on admission * Hospitalist note seen. Holding off on antibiotics for the UTI. * culture with ESBL E. coli (4) Altered mental status: Code(s): R41.82 - Altered mental status, unspecified Status: Acute Assessment and Plan: * has been waxing and waning since admission * Doing pretty well today. * due to infection +/- KEITH * follow trend of mentation (5) Colitis: Code(s): K52.9 - Noninfective gastroenteritis and colitis, unspecified Status: Acute Assessment and Plan: * noted to be C. diff positive * continue current therapy Subjective Date/time seen: 03/12/21 08:19 Interval history: The patient is feeling okay today. She still has diarrhea. No chest pain or shortness of breath Exam Narrative: Exam Narrative: General: WD/WN female in NAD Heart: normal S1 and S2; no rub Lungs: decreasd at bases Abdomen: soft, nontender, nondistended, positive bowel sounds Extremities: no cyanosis or clubbing; 2 - 3+ edema Skin: no rash Objective Data Vital Signs Vital Signs: Vital Signs - 24 hr 03/11/21 09:04 03/11/21 13:30 03/11/21 16:00 Temperature 36.4 C L 36.3 C L Pulse Rate 78 72 73 Respiratory Rate 14 16 Blood Pressure 149/67 H 149/71 H Pulse Oximetry 100 100 03/11/21 20:54 03/11/21 22:00 03/12/21 00:00 Temperature 36.6 C 36.4 C Pulse Rate 81 78 75 Respiratory Rate 20 16 Blood Pressure 142/69 H 150/70 H Pulse Oximetry 100 98 03/12/21 04:00 Temperature 36.4 C Pulse Rate 79 Respiratory Rate 20 Blood Pressure 149/68 H Pulse Oximetry 99 Intake/Output Intake/Output: Intake & Output 03/09/21 03/10/21 03/11/21 03/12/21 23:59 23:59 23:59 23:59 Intake Total 011 616 7330 Balance 634 141 3383 Meds/Results Medications: Active Medications Generic Name Dose Route Start Last Admin Trade Name Freq PRN Reason Stop Dose Admin Albuterol 2 puff 03/04/21 11:39 Albuterol Sulfate (*Sp) Aerosol 1 Puff INHALATION Q6H PRN Shortness Of Breath Or Wheezing Aspirin 81 mg 03/05/21 0
--- NOTE | 2021-03-12 08:19 | PM.PNNEP ---
Progress Note: A&P Assessment and Plan (1) KEITH (acute kidney injury): Code(s): N17.9 - Acute kidney failure, unspecified Status: Acute Assessment and Plan: likely due to several issues: - prerenal factors - poor oral intake/diarrhea - acute infection (UTI) - relative hypotension (?) renal ultrasound without any acute issues labs pending for today. Continue IV antibiotics. (2) Chronic kidney disease, stage IV (severe): Code(s): N18.4 - Chronic kidney disease, stage 4 (severe) Status: Chronic Assessment and Plan: baseline creatinine seems to run ~ 1.6 - 2.2mg/dl presumably due to HTN, DM, vascular disease and age (3) Urinary tract infection: Qualifiers: Urinary tract infection type: site unspecified Hematuria presence: without hematuria Qualified Code(s): N39.0 - Urinary tract infection, site not specified Code(s): N39.0 - Urinary tract infection, site not specified Status: Acute Assessment and Plan: highly suggested by UA on admission Hospitalist note seen. Holding off on antibiotics for the UTI. culture with ESBL E. coli (4) Altered mental status: Code(s): R41.82 - Altered mental status, unspecified Status: Acute Assessment and Plan: has been waxing and waning since admission Doing pretty well today. due to infection +/- KEITH follow trend of mentation (5) Colitis: Code(s): K52.9 - Noninfective gastroenteritis and colitis, unspecified Status: Acute Assessment and Plan: noted to be C. diff positive continue current therapy Subjective Date/time seen: 03/12/21 08:19 Interval history: The patient is feeling okay today. She still has diarrhea. No chest pain or shortness of breath Exam Narrative: Exam Narrative: General: WD/WN female in NAD Heart: normal S1 and S2; no rub Lungs: decreasd at bases Abdomen: soft, nontender, nondistended, positive bowel sounds Extremities: no cyanosis or clubbing; 2 - 3+ edema Skin: no rash Objective Data Vital Signs Vital Signs: Vital Signs - 24 hr 03/11/21 09:04 03/11/21 13:30 03/11/21 16:00 Temperature 36.4 C L 36.3 C L Pulse Rate 78 72 73 Respiratory Rate 14 16 Blood Pressure 149/67 H 149/71 H Pulse Oximetry 100 100 03/11/21 20:54 03/11/21 22:00 03/12/21 00:00 Temperature 36.6 C 36.4 C Pulse Rate 81 78 75 Respiratory Rate 20 16 Blood Pressure 142/69 H 150/70 H Pulse Oximetry 100 98 03/12/21 04:00 Temperature 36.4 C Pulse Rate 79 Respiratory Rate 20 Blood Pressure 149/68 H Pulse Oximetry 99 Intake/Output Intake/Output: Intake & Output 03/09/21 03/10/21 03/11/21 03/12/21 23:59 23:59 23:59 23:59 Intake Total 047 757 5989 Balance 998 031 7615 Meds/Results Medications: Active Medications Generic Name Dose Route Start Last Admin Trade Name Freq PRN Reason Stop Dose Admin Albuterol 2 puff 03/04/21 11:39 Albuterol Sulfate (*Sp) Aerosol 1 Puff INHALATION Q6H PRN Shortness Of Breath Or Wheezing Aspirin 81 mg 03/05/21 08:00 03/11/21 09:05 Aspirin 81 Mg Chewable Tablet PO 81 mg DAILY@0800 GERRI Administration Atorvastatin Calcium 80 mg 03/06/21 09:00 03/10/21 09:09 Atorvastatin 40 Mg Tablet PO 80 mg Q48HR GERRI Administration Bupropion HCl 75 mg 03/04/21 17:00 03/11/21 17:05 Bupropion Hcl 75 Mg Tablet PO 75 mg BID GERRI Administration Dextrose 12.5 gm 03/06/21 10:18 Dextrose 50% 25 Gm/50 Ml Syringe IV PUSH PRN PRN Hypoglycemia Protocol Famotidine 40 mg 03/05/21 09:00 03/11/21 09:04 Famotidine 20 Mg Tablet PO 40 mg DAILY GERRI Administration Fidaxomicin 200 mg 03/07/21 09:00 03/11/21 20:54 Fidaxomicin 200 Mg Tablet PO 200 mg Q12HR GERRI Administration Fluoxetine HCl 40 mg 03/05/21 09:00 03/11/21 09:04 Fluoxetine Hcl 20 Mg Capsule PO 40 mg ROGELIO
[2021-03-12 08:26] LABS: Hematocrit 33.6 % (37.0-47.0); Hemoglobin 9.8 g/dL (12.0-15.0); Mean Corpuscular HGB Conc 29.2 g/dl (32-36); Mean Corpuscular Hemoglobin 24.6 pg (26-34); Mean Corpuscular Volume 84.4 fl (80-100); Mean Platelet Volume 11.3 fl (7.4-10.4); Platelet Count Result 471 k/mm3 (150-375); Red Blood Count 3.98 M/mm3 (4.2-5.4); Red Cell Distribution Width 17.5 % (11.5-14.5)
[2021-03-12 08:37] LABS: Potassium 3.6 mmol/L (3.4-5.0)
[2021-03-12 08:43] LABS: Alanine Aminotransferase 9 U/L (4-35); Albumin Level 2.4 g/dL (3.5-5.1); Alkaline Phosphatase 73 U/L (38-126); Anion Gap 10 mmol/L (8-16); Aspartate Amino Transferase 22 U/L (14-36); Bilirubin,Total 0.3 mg/dL (0.2-1.3); Blood Urea Nitrogen 50 mg/dL (7-17); Calcium 8.5 mg/dL (8.4-10.2); Carbon Dioxide 15 mmol/L (22-30); Chloride 107 mmol/L (98-107); Estimated CRCL calculation 13 ml/min; Estimated Glomerular Filt Rate 15; Glucose 169 mg/dL (65-110); Sodium 132 mmol/L (137-145)
[2021-03-12 09:27] LABS: Glucose Point of Care 161 mg/dl (65-105)
[2021-03-12] MEDS: ATORVASTATIN 40 MG TABLET 80 MG PO (09:31)
[2021-03-12] MEDS: ASPIRIN 81 MG CHEWABLE TABLET PO (09:31)
[2021-03-12] MEDS: VENLAFAXINE HCL 25 MG TABLET PO ×2 (09:31→16:54)
[2021-03-12] MEDS: ISOSORBIDE MONONITRATE 10 MG TABLET PO ×2 (09:32→16:51)
[2021-03-12] MEDS: buPROPion HCL 75 MG TABLET PO ×2 (09:32→16:50)
[2021-03-12] MEDS: TICAGRELOR 90 MG TABLET PO ×2 (09:32→21:31)
[2021-03-12] MEDS: FLUoxetine HCL 20 MG CAPSULE 40 MG PO (09:32)
[2021-03-12] MEDS: FAMOTIDINE 20 MG TABLET 40 MG PO (09:32)
[2021-03-12] MEDS: FIDAXOMICIN 200 MG TABLET PO ×2 (09:32→21:32)
[2021-03-12] MEDS: SACCHAROMYCES BOULARDII 250 MG CAPSULE PO ×2 (09:32→16:54)
[2021-03-12] MEDS: METOPROLOL TARTRATE 12.5 MG TABLET PO ×2 (09:33→21:31)
[2021-03-12] MEDS: FLUTICASONE/SALMETEROL 115-21 MCG INHALER 1 PUFF 2 PUFF INHALATION ×2 (09:53→21:47)
--- NOTE | 2021-03-12 10:18 | PCPTNOTE ---
Attempted to see patient for PT at this time, however patient refused. Patient reported she is not in a good mood today. Attempted to encourage patient to participate in therapy, patient continued to refuse.
[2021-03-12 10:44] LABS: Magnesium 2.1 mg/dL (1.6-2.3)
--- NOTE | 2021-03-12 11:13 | PM.IMPN ---
Progress Note: A&P Assessment and Plan (1) C. difficile colitis: Code(s): A04.72 - Enterocolitis due to Clostridium difficile, not specified as recurrent Status: Acute Assessment and Plan: Pt is positive for cdiff and was started on oral vanc 03/05/21 after becoming febrile with worsening colitis on CT -Spoke with Dr. Ross, [place], who agrees with switching to Dificid and recommends adding IV flagyl -WBC trending down and is currently at 13.4 -no further fevers -isolation in place -no hx of cdiff -Florastor 250mg PO BID -Add Banatrol to slow down the BMs (2) Acute kidney injury superimposed on chronic kidney disease: Code(s): N17.9 - Acute kidney failure, unspecified; N18.9 - Chronic kidney disease, unspecified Status: Acute Assessment and Plan: Was thought to be dehydrated from acute mental status change and no PO intake, now looks to be like fluid overload Fluids given for 2 day with increase in BUN/Cr peaked at 54/3.50 Fluids DC'd 03/09/21 20mg of lasix given 03/09/21 3+ pitting edema noted on exam BUN/Cr have gotten better today at 50/3.00 40mg of lasix repeated since renal failure has not gotten worse or better Strict I&Os Chest xray was read as cardiomeagly with chronic interstitial lung disease Trend BUN/Cr Labs in the am BNP was 1600 03/10/21 (3) Acute UTI: Code(s): N39.0 - Urinary tract infection, site not specified Status: Acute Assessment and Plan: UA with ESBL -Dr. Black has recommended stopping zosyn and monitoring. She had no urological symptoms on presentation and the abdomen may have been tender from the colitis. If this changes, he would start her on a carbapenem -blood cultures NGTD -lactic normal, bicarb waxes and wane. Likely due to GI loss/diarrhea (4) Colitis: Code(s): K52.9 - Noninfective gastroenteritis and colitis, unspecified Status: Acute Assessment and Plan: as above (5) Chronic diastolic CHF (congestive heart failure): Code(s): I50.32 - Chronic diastolic (congestive) heart failure Status: Acute Assessment and Plan: appears to be fluid overloaded today -BNP 1800 -will give 40mg of IV lasix since renal function is not better or worse -3+ pitting edema noted on exam -Fluids were DC'd 03/09/21 -continue metorpolol aspirin, and atorvastatin (6) GERD (gastroesophageal reflux disease): Code(s): K21.9 - Gastro-esophageal reflux disease without esophagitis Status: Acute Assessment and Plan: Continue famotidine (7) Atrial fibrillation: Qualifiers: Atrial fibrillation type: paroxysmal Qualified Code(s): I48.0 - Paroxysmal atrial fibrillation Code(s): I48.91 - Unspecified atrial fibrillation Status: Chronic Assessment and Plan: RRR on todays exam, rate controlled -not anticoagulated, however patient on dual anti-platelet therapy -MRI ordered due to confusion (8) Obstructive sleep apnea: Code(s): G47.33 - Obstructive sleep apnea (adult) (pediatric) Status: Acute Assessment and Plan: Continue cpap (9) CKD (chronic kidney disease): Code(s): N18.9 - Chronic kidney disease, unspecified Status: Acute Assessment and Plan: Cr jumped today, could be due to diarrhea and dehydration - p.o. intake is better fluids have been DC'd -renal u/s showed no hydronephrosis with normal kidney size -nephrology consult thank you -BUN/CR 50/3.00 -Could be from fluid overload (10) Altered mental status: Code(s): R41.82 - Altered mental status, unspecified Status: Acute Assessment and Plan: Acute metabolic encephalopathy - seems better today as she is able to hold a conversation answer questions appropriately feed Herself -as above. Likely due to UTI and colitis. -MRI ordered however still waiting on the right documentation for her stents -Repeat head
--- NOTE | 2021-03-12 12:07 | PCNFU ---
Addendum entered by Marjorie Oakes 03/12/21 12:19: Patient is on Soft and Bite Size, Level 6, and Moderately Thick liquids, Level 3. Banatrol Plus TID being received providing 40 kcals. Ensure Compact BID being received providing 220 kcals and 9 gm protein. Appetite is improving reported patient. Original Note: Nutrition Follow-Up Complete: Inadequate oral intake related to inability to consume foods orally due to confusion and lethargy as evidence by NPO diet order and 0% intake Goal: Total intake will meet estimated kcal and protein needs Goal has not yet been met. Patient will continue to work towards goal. Pt current nutrition is DBCC, Heart Healthy, Thickened Liquids. Last recorded weight is 70.9 kg. Bowel Motility: Last BM: 03/12 Labs Reviewed: Hgb 9.8, Hct 33.6, Alb 2.4, Na 132, K 3.6, GFR 15, BUN 50, Cr 3, Glu 169 Meds Noted: Albuterol, Aspirin, Lipitor, Wellbutrin, Dextrose, Pepcid, Dificid, Prozac, Novolog, Atrovent, Ismo, Lopressor, Flagyl, Nitrostat, Florastor, Advair, Brilinta, Effexor Additional Notes: Patient is consuming 15 to 25% of meals. Banotrol Diet plan, Swallow Eval, labs, weight every three days
[2021-03-12 12:19] LABS: Glucose Point of Care 188 mg/dl (65-105)
--- NOTE | 2021-03-12 14:13 | WPDGIPROGNO ---
Progress Note: A&P Assessment and Plan (1) C. difficile colitis: Code(s): A04.72 - Enterocolitis due to Clostridium difficile, not specified as recurrent Status: Acute Assessment and Plan: iv flagyl can be discontinued when she is ready to go home and will need to complete total of 10 days with dificid no more diarrhea or abdominal pain leukocytosis improving (2) SIRS (systemic inflammatory response syndrome): Code(s): R65.10 - Systemic inflammatory response syndrome (SIRS) of non-infectious origin without acute organ dysfunction Status: Acute Assessment and Plan: resolved (3) Acute kidney injury superimposed on chronic kidney disease: Code(s): N17.9 - Acute kidney failure, unspecified; N18.9 - Chronic kidney disease, unspecified Status: Acute Assessment and Plan: nephrology on board Subjective Date/time seen: 03/12/21 14:13 Interval history: patient is doing ok, denies abdominal pain and she says that no more diarrhea, in fact having normal consistency. Review of Systems Review of Systems: All systems reviewed & are unremarkable except as noted in HPI and below Exam Const: General: no acute distress and ill appearing chronically HENMT: General nose exam: Normal nares present Eyes: Sclera: sclerae normal Neck: Neck: supple Resp: Auscultation: clear to auscultation bilaterally Cardio: Rhythm: regular rhythm GI: GI Palp: Yes Soft to palpation, No Firmness to palpation present (GI), No Tenderness to palpation present (GI) and No Guarding due to palpation present (GI) Auscultation: normal bowel sounds Skin: General skin exam: normal color Neuro: Speech: normal speech Motor exam (neuro): Normal motor muscle tone present throughout Extrem: General: no edema Psych: Affect: normal affect Objective Data Vital Signs Vital Signs: Vital Signs - 24 hr 03/11/21 16:00 03/11/21 20:54 03/11/21 22:00 Temperature 97.4 F L 97.9 F Pulse Rate 73 81 78 Respiratory Rate 16 20 Blood Pressure 149/71 H 142/69 H Pulse Oximetry 100 100 03/12/21 00:00 03/12/21 04:00 03/12/21 09:33 Temperature 97.6 F 97.6 F Pulse Rate 75 79 72 Respiratory Rate 16 20 Blood Pressure 150/70 H 149/68 H Pulse Oximetry 98 99 Intake/Output Intake/Output: Intake & Output 03/09/21 03/10/21 03/11/21 03/12/21 23:59 23:59 23:59 23:59 Intake Total 682 912 8910 100 Balance 747 755 0261 100 Meds/Results Medications: Active Medications Generic Name Dose Route Start Last Admin Trade Name Freq PRN Reason Stop Dose Admin Albuterol 2 puff 03/04/21 11:39 Albuterol Sulfate (*Sp) Aerosol 1 Puff INHALATION Q6H PRN Shortness Of Breath Or Wheezing Aspirin 81 mg 03/05/21 08:00 03/12/21 09:31 Aspirin 81 Mg Chewable Tablet PO 81 mg DAILY@0800 GERRI Administration Atorvastatin Calcium 80 mg 03/06/21 09:00 03/12/21 09:31 Atorvastatin 40 Mg Tablet PO 80 mg Q48HR GERRI Administration Bupropion HCl 75 mg 03/04/21 17:00 03/12/21 09:32 Bupropion Hcl 75 Mg Tablet PO 75 mg BID GERRI Administration Dextrose 12.5 gm 03/06/21 10:18 Dextrose 50% 25 Gm/50 Ml Syringe IV PUSH PRN PRN Hypoglycemia Protocol Famotidine 40 mg 03/05/21 09:00 03/12/21 09:32 Famotidine 20 Mg Tablet PO 40 mg DAILY GERRI Administration Fidaxomicin 200 mg 03/07/21 09:00 03/12/21 09:32 Fidaxomicin 200 Mg Tablet PO 200 mg Q12HR GERRI Administration Fluoxetine HCl 40 mg 03/05/21 09:00 03/12/21 09:32 Fluoxetine Hcl 20 Mg Capsule PO 40 mg DAILY GERRI Administration Glucagon 1 mg 03/06/21 10:18 Glucagon For Inj 1 Mg Vial IM PRN PRN Hypoglycemia Protocol Glucose 15 gm 03/06/21 10:18 Glucose Oral Gel 15 Gm Of Glucse In 37.5 Gm Tube PO PRN PRN Hypoglycemia Protocol Dextrose 1,000 mls @ 100 mls/hr 03/06/21 10:18 Dextrose 5% 1,000 Ml IVPB PRN PRN Hypoglycemia Protoc
--- NOTE | 2021-03-12 14:23 | PCPTNOTE ---
Attempted to see patient for PT this afternoon, however patient refused. Stated I'm just not in the mood. Explained the importance of therapy and participating, patient continued to refuse. Patient reported I know but I'm just not in the mood. and shook her head no.
[2021-03-12] MEDS: INSULIN ASPART (*BKC) 100 UNITS/ML SUB-Q (16:51)
[2021-03-12 17:41] LABS: Glucose Point of Care 214 mg/dl (65-105)
[2021-03-12 18:32] LABS: Eosinophil Urine None Seen % (None Seen)
[2021-03-12 18:40] LABS: Creatinine Urine 144.6 mg/dL
[2021-03-12 18:56] LABS: Sodium Urine Random 9 meq/L
[2021-03-12 20:31] LABS: Glucose Point of Care 182 mg/dl (65-105)
[2021-03-13] VITALS (8 sets, daily range): BP systolic 112–150; BP diastolic 57–72; PULSE 63–78; RESP 16–22; TEMP 36.1–37.1; O2SAT 98–100
[2021-03-13] MEDS: metroNIDAZOLE 500 MG/ISO 100ML 500 MG/100 ML BAG 100 MG IVPB ×3 (01:37→17:06)
[2021-03-13 05:36] LABS: Hematocrit 32.3 % (37.0-47.0); Hemoglobin 9.8 g/dL (12.0-15.0); Mean Corpuscular HGB Conc 30.3 g/dl (32-36); Mean Corpuscular Hemoglobin 25.1 pg (26-34); Mean Corpuscular Volume 82.6 fl (80-100); Mean Platelet Volume 11.3 fl (7.4-10.4); Platelet Count Result 486 k/mm3 (150-375); Red Blood Count 3.91 M/mm3 (4.2-5.4); Red Cell Distribution Width 17.5 % (11.5-14.5)
[2021-03-13 05:47] LABS: Alanine Aminotransferase 9 U/L (4-35); Albumin Level 2.4 g/dL (3.5-5.1); Alkaline Phosphatase 75 U/L (38-126); Anion Gap 10 mmol/L (8-16); Aspartate Amino Transferase 23 U/L (14-36); Bilirubin,Total 0.3 mg/dL (0.2-1.3); Blood Urea Nitrogen 51 mg/dL (7-17); Calcium 8.8 mg/dL (8.4-10.2); Carbon Dioxide 16 mmol/L (22-30); Chloride 104 mmol/L (98-107); Estimated CRCL calculation 13 ml/min; Estimated Glomerular Filt Rate 15; Glucose 153 mg/dL (65-110); Magnesium 2.1 mg/dL (1.6-2.3); Phosphorus 5.2 mg/dL (2.5-4.5); Potassium 3.3 mmol/L (3.4-5.0); Sodium 130 mmol/L (137-145)
--- NOTE | 2021-03-13 06:23 | P.PNNP_ITS ---
Progress Note: A&P Assessment and Plan (1) KEITH (acute kidney injury): Code(s): N17.9 - Acute kidney failure, unspecified Status: Acute Assessment and Plan: * acute kidney injury * renal ultrasound unremarkable * urine electrolytes pre renal * likely due to several issues: - prerenal factors - poor oral intake/diarrhea - acute infection C. Diff * the patient may have a component of ATN * creatinine seems to have stabilized around 3. * improvement to her former baseline may be relatively slow. * diarrhea is better. C diff is being treated With Flagyl and Dificid (2) Chronic kidney disease, stage IV (severe): Code(s): N18.4 - Chronic kidney disease, stage 4 (severe) Status: Chronic Assessment and Plan: * baseline creatinine seems to run ~ 1.6 - 2.2mg/dl * presumably due to HTN, DM, vascular disease and age (3) Urinary tract infection: Qualifiers: Urinary tract infection type: site unspecified Hematuria presence: without hematuria Qualified Code(s): N39.0 - Urinary tract infection, site not specified Code(s): N39.0 - Urinary tract infection, site not specified Status: Acute Assessment and Plan: * highly suggested by UA on admission * Hospitalist note seen. Holding off on antibiotics for the UTI. * culture with ESBL E. coli (4) Altered mental status: Code(s): R41.82 - Altered mental status, unspecified Status: Acute Assessment and Plan: * has been waxing and waning since admission * Doing pretty well today. * due to infection +/- KEITH * follow trend of mentation (5) Colitis: Code(s): K52.9 - Noninfective gastroenteritis and colitis, unspecified Status: Acute Assessment and Plan: * noted to be C. diff positive * continue current therapy Subjective Date/time seen: 03/13/21 06:23 Interval history: The patient is feeling okay today. she denies diarrhea overnight. Nursing agrees. No chest pain or shortness of breath Exam Narrative: Exam Narrative: General: WD/WN female in NAD Heart: normal S1 and S2; no rub Or gallop Lungs: decreasd at bases Abdomen: soft, nontender, nondistended, positive bowel sounds Extremities: no cyanosis or clubbing; 2 - 3+ edema Skin: no rash Objective Data Vital Signs Vital Signs: Vital Signs - 24 hr 07/19/21 09:33 03/12/21 10:05 03/12/21 14:00 Temperature 36.6 C 36.4 C L Pulse Rate 72 71 74 Respiratory Rate 17 18 Blood Pressure 134/71 128/76 Pulse Oximetry 97 96 03/12/21 18:00 03/12/21 20:00 03/12/21 21:31 Temperature 36.3 C L Pulse Rate 76 78 78 Respiratory Rate 17 17 Blood Pressure 138/68 Pulse Oximetry 98 98 03/12/21 22:00 03/13/21 00:00 Temperature 36.5 C 37.1 C Pulse Rate 78 63 Respiratory Rate 20 21 H Blood Pressure 158/75 H 150/57 H Pulse Oximetry 98 100 Intake/Output Intake/Output: Intake & Output 03/10/21 03/11/21 03/12/21 03/13/21 23:59 23:59 23:59 23:59 Intake Total 300 1400 420 100 Output Total 400 Balance 300 1400 20 100 Meds/Results Medications: Active Medications Generic Name Dose Route Start
--- NOTE | 2021-03-13 06:23 | PM.PNNEP ---
Progress Note: A&P Assessment and Plan (1) KEITH (acute kidney injury): Code(s): N17.9 - Acute kidney failure, unspecified Status: Acute Assessment and Plan: acute kidney injury renal ultrasound unremarkable urine electrolytes pre renal likely due to several issues: - prerenal factors - poor oral intake/diarrhea - acute infection C. Diff the patient may have a component of ATN creatinine seems to have stabilized around 3. improvement to her former baseline may be relatively slow. diarrhea is better. C diff is being treated With Flagyl and Dificid (2) Chronic kidney disease, stage IV (severe): Code(s): N18.4 - Chronic kidney disease, stage 4 (severe) Status: Chronic Assessment and Plan: baseline creatinine seems to run ~ 1.6 - 2.2mg/dl presumably due to HTN, DM, vascular disease and age (3) Urinary tract infection: Qualifiers: Urinary tract infection type: site unspecified Hematuria presence: without hematuria Qualified Code(s): N39.0 - Urinary tract infection, site not specified Code(s): N39.0 - Urinary tract infection, site not specified Status: Acute Assessment and Plan: highly suggested by UA on admission Hospitalist note seen. Holding off on antibiotics for the UTI. culture with ESBL E. coli (4) Altered mental status: Code(s): R41.82 - Altered mental status, unspecified Status: Acute Assessment and Plan: has been waxing and waning since admission Doing pretty well today. due to infection +/- KEITH follow trend of mentation (5) Colitis: Code(s): K52.9 - Noninfective gastroenteritis and colitis, unspecified Status: Acute Assessment and Plan: noted to be C. diff positive continue current therapy Subjective Date/time seen: 03/13/21 06:23 Interval history: The patient is feeling okay today. she denies diarrhea overnight. Nursing agrees. No chest pain or shortness of breath Exam Narrative: Exam Narrative: General: WD/WN female in NAD Heart: normal S1 and S2; no rub Or gallop Lungs: decreasd at bases Abdomen: soft, nontender, nondistended, positive bowel sounds Extremities: no cyanosis or clubbing; 2 - 3+ edema Skin: no rash Objective Data Vital Signs Vital Signs: Vital Signs - 24 hr 03/12/21 09:33 03/12/21 10:05 03/12/21 14:00 Temperature 36.6 C 36.4 C L Pulse Rate 72 71 74 Respiratory Rate 17 18 Blood Pressure 134/71 128/76 Pulse Oximetry 97 96 03/12/21 18:00 03/12/21 20:00 03/12/21 21:31 Temperature 36.3 C L Pulse Rate 76 78 78 Respiratory Rate 17 17 Blood Pressure 138/68 Pulse Oximetry 98 98 03/12/21 22:00 03/13/21 00:00 Temperature 36.5 C 37.1 C Pulse Rate 78 63 Respiratory Rate 20 21 H Blood Pressure 158/75 H 150/57 H Pulse Oximetry 98 100 Intake/Output Intake/Output: Intake & Output 03/10/21 03/11/21 03/12/21 03/13/21 23:59 23:59 23:59 23:59 Intake Total 300 1400 420 100 Output Total 400 Balance 300 1400 20 100 Meds/Results Medications: Active Medications Generic Name Dose Route Start Last Admin Trade Name Freq PRN Reason Stop Dose Admin Albuterol 2 puff 03/04/21 11:39 Albuterol Sulfate (*Sp) Aerosol 1 Puff INHALATION Q6H PRN Shortness Of Breath Or Wheezing Aspirin 81 mg 03/05/21 08:00 03/12/21 09:31 Aspirin 81 Mg Chewable Tablet PO 81 mg DAILY@0800 GERRI Administration Atorvastatin Calcium 80 mg 03/06/21 09:00 03/12/21 09:31 Atorvastatin 40 Mg Tablet PO 80 mg Q48HR GERRI Administration Bupropion HCl 75 mg 03/04/21 17:00 03/12/21 16:50 Bupropion Hcl 75 Mg Tablet PO 75 mg BID GERRI Administration Dextrose 12.5 gm 03/06/21 10:18 Dextrose 50% 25 Gm/50 Ml Syringe IV PUSH PRN PRN Hypoglycemia Protocol Famotidine 40 mg 03/05/21 09:00 03/12/21 09:32 Famotidine 20 Mg Tablet PO 40 mg
[2021-03-13 07:36] LABS: Glucose Point of Care 165 mg/dl (65-105)
[2021-03-13] MEDS: FLUTICASONE/SALMETEROL 115-21 MCG INHALER 1 PUFF 2 PUFF INHALATION ×2 (07:38→19:41)
[2021-03-13] MEDS: ASPIRIN 81 MG CHEWABLE TABLET PO (09:55)
[2021-03-13] MEDS: FIDAXOMICIN 200 MG TABLET PO ×2 (09:56→21:28)
[2021-03-13] MEDS: ISOSORBIDE MONONITRATE 10 MG TABLET PO ×2 (09:56→17:09)
[2021-03-13] MEDS: buPROPion HCL 75 MG TABLET PO ×2 (09:56→17:09)
[2021-03-13] MEDS: VENLAFAXINE HCL 25 MG TABLET PO ×2 (09:56→17:09)
[2021-03-13] MEDS: FLUoxetine HCL 20 MG CAPSULE 40 MG PO (09:56)
[2021-03-13] MEDS: FAMOTIDINE 20 MG TABLET 40 MG PO (09:56)
[2021-03-13] MEDS: SACCHAROMYCES BOULARDII 250 MG CAPSULE PO ×2 (09:57→17:09)
[2021-03-13] MEDS: TICAGRELOR 90 MG TABLET PO ×2 (09:57→21:28)
[2021-03-13] MEDS: METOPROLOL TARTRATE 12.5 MG TABLET PO ×2 (09:57→21:28)
[2021-03-13 11:42] LABS: Glucose Point of Care 189 mg/dl (65-105)
--- NOTE | 2021-03-13 14:47 | P.PNIM_ITS ---
Progress Note: A&P Assessment and Plan (1) C. difficile colitis: Code(s): A04.72 - Enterocolitis due to Clostridium difficile, not specified as recurrent Status: Acute Assessment and Plan: Pt is positive for C.Diff and was started on oral vanc 03/05/21 after becoming febrile with worsening colitis on CT -Spoke with Dr. Ross, [place], who agrees with switching to Dificid and recommends adding IV flagyl - continue these. -March 06- WBC significantly elevated 21.8, 23.7, 22.0, improved after IV flagyl and Dificid. - diarrhea output improved, no further fevers -but Leukocytosis still not resolved, despite KUB showing improved and resolving coliitis. -Persistent elevated WBC may be UTI related/CHF related/ARF related : March 09- March 13: 13.9, 13.4, 16.8, 14.0, 14.0. -isolation in place -no hx of cdiff -Florastor 250mg PO BID -on Banatrol to slow down the BMs (2) Acute kidney injury superimposed on chronic kidney disease: Code(s): N17.9 - Acute kidney failure, unspecified; N18.9 - Chronic kidney disease, unspecified Status: Acute Assessment and Plan: * Was thought to be dehydrated with acute mental status change and no oral intake at admission * continues to have low oral intake even today * BNP may be elevated, but that may be related to the ARF/abdominal colitis/bowel inflammation and not true CHF. * Fluids given for 2 day with increase in BUN/Cr peaked at 54/3.50 * Fluids DC'd 03/09/21 * 20mg of lasix given 03/09/21 * 3+ pitting edema noted on exam * BUN/Cr have gotten better today at 50/3.00 * 40mg of lasix repeated * Strict I&Os * Chest xray was read as cardiomeagly with chronic interstitial lung disease * Trend BUN/Cr * Labs in the am * BNP was 1600 03/10/21, repeating (3) Acute UTI: Code(s): N39.0 - Urinary tract infection, site not specified Status: Acute Assessment and Plan: -lactic normal, bicarb waxes and wane. Likely due to GI loss/diarrhea Urine culture with ESBL + on on March 04. -ID Dr. Black recommended stopping zosyn and monitoring. She had no urological symptoms on presentation and the abdomen may have been tender from the colitis. If this changes, he would start her on a carbapenem. - repeated Urine Culture on March 13 as the patient's WBC remains abnormal and her Altered Mental Status persists. -March 04 Blood cultures NGTD, repeated Blood Cultures on March 13. (4) Colitis: Code(s): K52.9 - Noninfective gastroenteritis and colitis, unspecified Status: Acute Assessment and Plan: as above in C.Diff colitis * noted to be C. diff positive * continue current therapy (5) Chronic diastolic CHF (congestive heart failure): Code(s): I50.32 - Chronic diastolic (congestive) heart failure Status: Acute Assessment and Plan: appears to be euvolemic -takes daily low dose lasix at home, prior to admission -was thought to be dry at admission, lasix held. -Fluids were DC'd 03/09/21 -BNP 1600 on March 10, will need to repeat BNP tomorrow morning and compare, but remember BNP affect by renal failure. -was given 40mg of IV lasix x1 due to poor renal function (KEITH) -improved pitting edema - need to continue PT/OT and increase mobility and activity of patient - need to continue SCDs -continue metorpolol, aspirin, and atorvastatin (6) GERD (gastroesophageal reflux disease): Code(s): K21.9 - Gastro-esophageal reflux disease without esophagitis Status: Acute Assessment and Plan: Continue famotidine no complaints of reflux or GERD (7) Atrial fibrill
[2021-03-13 16:45] LABS: Glucose Point of Care 198 mg/dl (65-105)
[2021-03-13] MEDS: TOLNAFTATE 1% POWDER 45 GM BTL 1 APPLIC TOPICAL (21:28)
[2021-03-14] VITALS (8 sets, daily range): BP systolic 112–158; BP diastolic 55–71; PULSE 67–80; RESP 18–21; TEMP 36.1–36.5; O2SAT 97–100
[2021-03-14] MEDS: metroNIDAZOLE 500 MG/ISO 100ML 500 MG/100 ML BAG 100 MG IVPB ×3 (01:45→17:03)
[2021-03-14 02:09] LABS: Glucose Point of Care 216 mg/dl (65-105)
[2021-03-14 05:44] LABS: Hematocrit 32.7 % (37.0-47.0); Hemoglobin 9.7 g/dL (12.0-15.0); Mean Corpuscular HGB Conc 29.7 g/dl (32-36); Mean Corpuscular Hemoglobin 25.1 pg (26-34); Mean Corpuscular Volume 84.5 fl (80-100); Mean Platelet Volume 10.6 fl (7.4-10.4); Platelet Count Result 444 k/mm3 (150-375); Red Blood Count 3.87 M/mm3 (4.2-5.4); Red Cell Distribution Width 17.6 % (11.5-14.5); White Blood Count 14.2 K/mm3 (4.5-10.0)
[2021-03-14 05:53] LABS: Albumin Level 2.4 g/dL (3.5-5.1); Anion Gap 9 mmol/L (8-16); Blood Urea Nitrogen 49 mg/dL (7-17); Calcium 8.8 mg/dL (8.4-10.2); Carbon Dioxide 18 mmol/L (22-30); Chloride 104 mmol/L (98-107); Estimated CRCL calculation 14 ml/min; Estimated Glomerular Filt Rate 17; Glucose 181 mg/dL (65-110); Phosphorus 4.7 mg/dL (2.5-4.5); Potassium 3.3 mmol/L (3.4-5.0); Sodium 131 mmol/L (137-145)
[2021-03-14 06:02] LABS: NT Pro B Type Natriuretic Pept 1440 pg/mL (5-100)
[2021-03-14] MEDS: FLUTICASONE/SALMETEROL 115-21 MCG INHALER 1 PUFF 2 PUFF INHALATION ×2 (07:15→20:04)
[2021-03-14 07:49] LABS: Glucose Point of Care 185 mg/dl (65-105)
--- NOTE | 2021-03-14 08:20 | P.PNNP_ITS ---
Progress Note: A&P Assessment and Plan (1) KEITH (acute kidney injury): Code(s): N17.9 - Acute kidney failure, unspecified Status: Acute Assessment and Plan: * acute kidney injury * renal ultrasound unremarkable * urine electrolytes pre renal * likely due to several issues: - prerenal factors - poor oral intake/diarrhea - acute infection C. Diff * the patient may have a component of ATN * the creatinine improved to 2.7 today * diarrhea is better. the patient is on Flagyl and Dificid. * The patient has volume overload. * She is getting diuretics. Her albumin level is a little bit low. I talked with AURORA Brito who will give Bumex plus albumin. (2) Chronic kidney disease, stage IV (severe): Code(s): N18.4 - Chronic kidney disease, stage 4 (severe) Status: Chronic Assessment and Plan: * baseline creatinine seems to run ~ 1.6 - 2.2mg/dl * presumably due to HTN, DM, vascular disease and age (3) Urinary tract infection: Qualifiers: Urinary tract infection type: site unspecified Hematuria presence: without hematuria Qualified Code(s): N39.0 - Urinary tract infection, site not specified Code(s): N39.0 - Urinary tract infection, site not specified Status: Acute Assessment and Plan: * highly suggested by UA on admission * Hospitalist note seen. Holding off on antibiotics for the UTI. * culture with ESBL E. coli (4) Altered mental status: Code(s): R41.82 - Altered mental status, unspecified Status: Acute Assessment and Plan: * has been waxing and waning since admission * There is question of vascular issues or dementia. * AURORA Puga's note seen. (5) Colitis: Code(s): K52.9 - Noninfective gastroenteritis and colitis, unspecified Status: Acute Assessment and Plan: * noted to be C. diff positive * continue current therapy Subjective Date/time seen: 03/14/21 08:20 Interval history: The patient is feeling okay today. no diarrhea for several days. No chest pain or shortness of breath Still swollen Exam Narrative: Exam Narrative: General: WD/WN female in NAD Heart: normal S1 and S2; no rub Lungs: decreasd at bases Abdomen: soft, nontender, nondistended, positive bowel sounds Extremities: no cyanosis or clubbing; 2 - 3+ edema Skin: no rash Objective Data Vital Signs Vital Signs: Vital Signs - 24 hr 03/13/21 09:57 03/13/21 10:25 03/13/21 14:35 Temperature 36.2 C L 36.4 C Pulse Rate 72 73 78 Respiratory Rate 16 16 Blood Pressure 148/68 H 112/72 Pulse Oximetry 99 98 03/13/21 14:45 03/13/21 20:00 03/13/21 21:28 Temperature 36.4 C 36.1 C L Pulse Rate 78 74 73 Respiratory Rate 16 22 H Blood Pressure 112/72 126/65 Pulse Oximetry 98 99 03/14/21 00:00 03/14/21 04:00 Temperature 36.4 C 36.2 C L Pulse Rate 67 67 Respiratory Rate 20 20 Blood Pressure 137/71 158/59 H Pulse Oximetry 99 98 Intake/Output Intake/Output: Intake & Output 03/11/21 03/12/21 03/13/21 03/14/21 23:59 23:59 23:59 23:59 Intake Total 9599 052 1520 100 Output Total 400 200 Balance 1400 20 1570 100 Meds/Results Med
--- NOTE | 2021-03-14 08:20 | PM.PNNEP ---
Progress Note: A&P Assessment and Plan (1) KEITH (acute kidney injury): Code(s): N17.9 - Acute kidney failure, unspecified Status: Acute Assessment and Plan: acute kidney injury renal ultrasound unremarkable urine electrolytes pre renal likely due to several issues: - prerenal factors - poor oral intake/diarrhea - acute infection C. Diff the patient may have a component of ATN the creatinine improved to 2.7 today diarrhea is better. the patient is on Flagyl and Dificid. The patient has volume overload. She is getting diuretics. Her albumin level is a little bit low. I talked with AURORA Brito who will give Bumex plus albumin. (2) Chronic kidney disease, stage IV (severe): Code(s): N18.4 - Chronic kidney disease, stage 4 (severe) Status: Chronic Assessment and Plan: baseline creatinine seems to run ~ 1.6 - 2.2mg/dl presumably due to HTN, DM, vascular disease and age (3) Urinary tract infection: Qualifiers: Urinary tract infection type: site unspecified Hematuria presence: without hematuria Qualified Code(s): N39.0 - Urinary tract infection, site not specified Code(s): N39.0 - Urinary tract infection, site not specified Status: Acute Assessment and Plan: highly suggested by UA on admission Hospitalist note seen. Holding off on antibiotics for the UTI. culture with ESBL E. coli (4) Altered mental status: Code(s): R41.82 - Altered mental status, unspecified Status: Acute Assessment and Plan: has been waxing and waning since admission There is question of vascular issues or dementia. AURORA Puga's note seen. (5) Colitis: Code(s): K52.9 - Noninfective gastroenteritis and colitis, unspecified Status: Acute Assessment and Plan: noted to be C. diff positive continue current therapy Subjective Date/time seen: 03/14/21 08:20 Interval history: The patient is feeling okay today. no diarrhea for several days. No chest pain or shortness of breath Still swollen Exam Narrative: Exam Narrative: General: WD/WN female in NAD Heart: normal S1 and S2; no rub Lungs: decreasd at bases Abdomen: soft, nontender, nondistended, positive bowel sounds Extremities: no cyanosis or clubbing; 2 - 3+ edema Skin: no rash Objective Data Vital Signs Vital Signs: Vital Signs - 24 hr 07/20/21 09:57 03/13/21 10:25 03/13/21 14:35 Temperature 36.2 C L 36.4 C Pulse Rate 72 73 78 Respiratory Rate 16 16 Blood Pressure 148/68 H 112/72 Pulse Oximetry 99 98 03/13/21 14:45 03/13/21 20:00 03/13/21 21:28 Temperature 36.4 C 36.1 C L Pulse Rate 78 74 73 Respiratory Rate 16 22 H Blood Pressure 112/72 126/65 Pulse Oximetry 98 99 03/14/21 00:00 03/14/21 04:00 Temperature 36.4 C 36.2 C L Pulse Rate 67 67 Respiratory Rate 20 20 Blood Pressure 137/71 158/59 H Pulse Oximetry 99 98 Intake/Output Intake/Output: Intake & Output 03/11/21 03/12/21 03/13/21 03/14/21 23:59 23:59 23:59 23:59 Intake Total 6143 111 0431 100 Output Total 400 200 Balance 1400 20 1570 100 Meds/Results Medications: Active Medications Generic Name Dose Route Start Last Admin Trade Name Freq PRN Reason Stop Dose Admin Albuterol 2 puff 03/04/21 11:39 Albuterol Sulfate (*Sp) Aerosol 1 Puff INHALATION Q6H PRN Shortness Of Breath Or Wheezing Aspirin 81 mg 03/05/21 08:00 03/13/21 09:55 Aspirin 81 Mg Chewable Tablet PO 81 mg DAILY@0800 GERRI Administration Atorvastatin Calcium 80 mg 03/06/21 09:00 03/12/21 09:31 Atorvastatin 40 Mg Tablet PO 80 mg Q48HR GERRI Administration Bupropion HCl 75 mg 03/04/21 17:00 03/13/21 17:09 Bupropion Hcl 75 Mg Tablet PO 75 mg BID GERRI Administration Dextrose 12.5 gm 03/06/21 10:18 Dextrose 50% 25 Gm/50 Ml Syringe IV PUSH PRN PRN Hypoglycemia Protocol Famot
--- NOTE | 2021-03-14 09:24 | PCSTNOTE ---
Please refer to the Modified Barium Swallow Evaluation in the EMR.
[2021-03-14] MEDS: ALBUMIN HUMAN 25% 25 GM/100 ML 100 ML IVPB ×2 (09:58→19:40)
[2021-03-14] MEDS: TICAGRELOR 90 MG TABLET PO ×2 (10:00→21:21)
[2021-03-14] MEDS: ISOSORBIDE MONONITRATE 10 MG TABLET PO ×2 (10:00→16:59)
[2021-03-14] MEDS: ASPIRIN 81 MG CHEWABLE TABLET PO (10:00)
[2021-03-14] MEDS: FLUoxetine HCL 20 MG CAPSULE 40 MG PO (10:00)
[2021-03-14] MEDS: buPROPion HCL 75 MG TABLET PO ×2 (10:00→16:59)
[2021-03-14] MEDS: FAMOTIDINE 20 MG TABLET 40 MG PO (10:00)
[2021-03-14] MEDS: SACCHAROMYCES BOULARDII 250 MG CAPSULE PO ×2 (10:00→16:59)
[2021-03-14] MEDS: POTASSIUM CHLORIDE 20 MEQ PACKET (FOR LIQUID) 40 MEQ PO (10:00)
[2021-03-14] MEDS: FIDAXOMICIN 200 MG TABLET PO ×2 (10:01→21:21)
[2021-03-14] MEDS: METOPROLOL TARTRATE 12.5 MG TABLET PO ×2 (10:01→21:21)
[2021-03-14] MEDS: ATORVASTATIN 40 MG TABLET 80 MG PO (10:01)
[2021-03-14] MEDS: VENLAFAXINE HCL 25 MG TABLET PO ×2 (10:01→16:59)
[2021-03-14] MEDS: TOLNAFTATE 1% POWDER 45 GM BTL 1 APPLIC TOPICAL ×2 (10:04→21:21)
[2021-03-14 11:40] LABS: Glucose Point of Care 209 mg/dl (65-105)
[2021-03-14] MEDS: INSULIN ASPART (*BKC) 100 UNITS/ML SUB-Q ×2 (11:42→17:16)
[2021-03-14] MEDS: BUMETANIDE INJ 1 MG/4 ML VIAL IV PUSH ×3 (11:42→21:21)
[2021-03-14 16:14] LABS: Alanine Aminotransferase 9 U/L (4-35); Anion Gap 11 mmol/L (8-16); Aspartate Amino Transferase 22 U/L (14-36); Bilirubin,Total 0.3 mg/dL (0.2-1.3); Blood Urea Nitrogen 47 mg/dL (7-17); Calcium 8.9 mg/dL (8.4-10.2); Carbon Dioxide 16 mmol/L (22-30); Chloride 105 mmol/L (98-107); Estimated CRCL calculation 14 ml/min; Estimated Glomerular Filt Rate 17; Glucose 202 mg/dL (65-110); Potassium 3.6 mmol/L (3.4-5.0); Sodium 132 mmol/L (137-145)
[2021-03-14 16:15] LABS: Alkaline Phosphatase 68 U/L (38-126)
[2021-03-14 17:13] LABS: Glucose Point of Care 205 mg/dl (65-105)
--- NOTE | 2021-03-14 17:40 | PM.IMPN ---
Progress Note: A&P Assessment and Plan (1) C. difficile colitis: Code(s): A04.72 - Enterocolitis due to Clostridium difficile, not specified as recurrent Status: Acute Assessment and Plan: Pt is positive for C.Diff and was started on oral vanc 03/05/21 after becoming febrile with worsening colitis on CT -Spoke with Dr. Ross, [place], who agrees with switching to Dificid and recommends adding IV flagyl - continue these. -March 06- WBC significantly elevated 21.8, 23.7, 22.0, improved after IV flagyl and Dificid. - diarrhea output improved, no further fevers -but Leukocytosis still not resolved, despite KUB showing improved and resolving coliitis. -Persistent elevated WBC may be UTI related/CHF related/ARF related : March 09- March 13: 13.9, 13.4, 16.8, 14.0, 14.0. -isolation in place -no hx of cdiff -Florastor 250mg PO BID -on Banatrol to slow down the BMs (2) Acute kidney injury superimposed on chronic kidney disease: Code(s): N17.9 - Acute kidney failure, unspecified; N18.9 - Chronic kidney disease, unspecified Status: Acute Assessment and Plan: Was thought to be dehydrated with acute mental status change and no oral intake at admission continues to have low oral intake even today BNP may be elevated, but that may be related to the ARF/abdominal colitis/bowel inflammation and not true CHF. Fluids given for 2 day with increase in BUN/Cr peaked at 54/3.50 Fluids DC'd 03/09/21 20mg of lasix given 03/09/21 3+ pitting edema noted on exam BUN/Cr have gotten better today at 49/2.70 25g albumin and 1mg IV bumex Strict I&Os Chest xray was read as cardiomeagly with chronic interstitial lung disease Trend BUN/Cr Labs in the am BNP was 1600 03/10/21, repeat 1440 (3) Acute UTI: Code(s): N39.0 - Urinary tract infection, site not specified Status: Acute Assessment and Plan: -lactic normal, bicarb waxes and wane. Likely due to GI loss/diarrhea Urine culture with ESBL + on on March 04. -ID Dr. Black recommended stopping zosyn and monitoring. She had no urological symptoms on presentation and the abdomen may have been tender from the colitis. If this changes, he would start her on a carbapenem. - repeated Urine Culture on March 13 as the patient's WBC remains abnormal and her Altered Mental Status persists. -March 04 Blood cultures NGTD, repeated Blood Cultures on March 13. (4) Colitis: Code(s): K52.9 - Noninfective gastroenteritis and colitis, unspecified Status: Acute Assessment and Plan: as above in C.Diff colitis noted to be C. diff positive continue current therapy (5) Chronic diastolic CHF (congestive heart failure): Code(s): I50.32 - Chronic diastolic (congestive) heart failure Status: Acute Assessment and Plan: appears to be euvolemic -takes daily low dose lasix at home, prior to admission -was thought to be dry at admission, lasix held. -Fluids were DC'd 03/09/21 -BNP 1600 on March 10, will need to repeat BNP tomorrow morning and compare, but remember BNP affect by renal failure. -was given 40mg of IV lasix x1 due to poor renal function (KEITH) -improved pitting edema - need to continue PT/OT and increase mobility and activity of patient - need to continue SCDs -continue metorpolol, aspirin, and atorvastatin (6) GERD (gastroesophageal reflux disease): Code(s): K21.9 - Gastro-esophageal reflux disease without esophagitis Status: Acute Assessment and Plan: Continue famotidine no complaints of reflux or GERD (7) Atrial fibrillation: Qualifiers: Atrial fibrillation type: paroxysmal Qualified Code(s): I48.0 - Paroxysmal atrial fibrillation Code(s): I48.91 - Unspecified atrial fibrillation Status: Chronic Assessment and Plan: RRR on todays exam, rate controlled -not anticoagulated, however patient on dual anti-platelet therapy -MRI ordered due to confusion - discussed
[2021-03-14 22:39] LABS: Glucose Point of Care 255 mg/dl (65-105)
[2021-03-15] VITALS (7 sets, daily range): BP systolic 124–150; BP diastolic 52–72; PULSE 68–80; RESP 18–21; TEMP 36.3–37.2; O2SAT 94–100
[2021-03-15] MEDS: metroNIDAZOLE 500 MG/ISO 100ML 500 MG/100 ML BAG 100 MG IVPB ×3 (02:38→19:57)
[2021-03-15 05:32] LABS: Hematocrit 28.6 % (37.0-47.0); Hemoglobin 8.5 g/dL (12.0-15.0); Mean Corpuscular HGB Conc 29.7 g/dl (32-36); Mean Corpuscular Hemoglobin 24.7 pg (26-34); Mean Corpuscular Volume 83.1 fl (80-100); Platelet Count Result 353 k/mm3 (150-375); Red Blood Count 3.44 M/mm3 (4.2-5.4); Red Cell Distribution Width 17.7 % (11.5-14.5); White Blood Count 11.9 K/mm3 (4.5-10.0)
[2021-03-15 05:52] LABS: Anion Gap 10 mmol/L (8-16); Blood Urea Nitrogen 45 mg/dL (7-17); Calcium 8.6 mg/dL (8.4-10.2); Carbon Dioxide 16 mmol/L (22-30); Chloride 106 mmol/L (98-107); Estimated CRCL calculation 17 ml/min; Estimated Glomerular Filt Rate 21; Glucose 178 mg/dL (65-110); Potassium 3.2 mmol/L (3.4-5.0); Sodium 132 mmol/L (137-145)
[2021-03-15 05:59] LABS: NT Pro B Type Natriuretic Pept 1790 pg/mL (5-100)
--- NOTE | 2021-03-15 08:01 | P.PNNP_ITS ---
Progress Note: A&P Assessment and Plan (1) KEITH (acute kidney injury): Code(s): N17.9 - Acute kidney failure, unspecified Status: Acute Assessment and Plan: * acute kidney injury * renal ultrasound unremarkable * urine electrolytes pre renal * likely due to several issues: - prerenal factors - poor oral intake/diarrhea - acute infection C. Diff * the patient may have a component of ATN * the creatinine improved to 2.3 today * diarrhea is gone. * She received diuretics plus albumin yesterday. She says she urinated a lot. Has not been recorded because of incontinence. Her creatinine improved impressively to 2.3. This is close to her baseline. (2) Chronic kidney disease, stage IV (severe): Code(s): N18.4 - Chronic kidney disease, stage 4 (severe) Status: Chronic Assessment and Plan: * baseline creatinine seems to run ~ 1.6 - 2.2mg/dl * presumably due to HTN, DM, vascular disease and age (3) Urinary tract infection: Qualifiers: Urinary tract infection type: site unspecified Hematuria presence: without hematuria Qualified Code(s): N39.0 - Urinary tract infection, site not specified Code(s): N39.0 - Urinary tract infection, site not specified Status: Acute Assessment and Plan: * No antibiotics per Infectious Disease consultation Since no symptoms. (4) Altered mental status: Code(s): R41.82 - Altered mental status, unspecified Status: Acute Assessment and Plan: * has been waxing and waning since admission * There is question of vascular issues or dementia. * AURORA Puga's note seen. (5) Colitis: Code(s): K52.9 - Noninfective gastroenteritis and colitis, unspecified Status: Acute Assessment and Plan: * noted to be C. diff positive * No diarrhea for several days. * continue current therapy Subjective Date/time seen: 03/15/21 08:01 Interval history: The patient is feeling okay today. swelling seems better today. Exam Narrative: Exam Narrative: General: WD/WN female in NAD Heart: normal S1 and S2; no rub Lungs: decreasd at bases Abdomen: soft, nontender, nondistended, positive bowel sounds Extremities: no cyanosis or clubbing; 1-2+ edema Skin: no rash Objective Data Vital Signs Vital Signs: Vital Signs - 24 hr 03/14/21 10:00 03/14/21 10:01 03/14/21 14:00 Temperature 36.1 C L 36.3 C L Pulse Rate 74 80 72 Respiratory Rate 18 18 Blood Pressure 144/67 H 112/55 L Pulse Oximetry 100 97 03/14/21 20:04 03/14/21 21:21 03/14/21 22:00 Temperature 36.5 C Pulse Rate 75 72 72 Respiratory Rate 18 21 H Blood Pressure 138/60 Pulse Oximetry 100 03/15/21 00:00 03/15/21 04:00 Temperature 36.4 C L 36.3 C L Pulse Rate 68 73 Respiratory Rate 20 18 Blood Pressure 131/63 150/63 H Pulse Oximetry 98 96 Intake/Output Intake/Output: Intake & Output 03/12/21 03/13/21 03/14/21 03/15/21 23:59 23:59 23:59 23:59 Intake Total 420 1770 1020 400 Output Total 400 200 Balance 20 1570 1020 400 Meds/Results Medications: Active Medications Generic Name Dose Route Start Last Admin
--- NOTE | 2021-03-15 08:01 | PM.PNNEP ---
Progress Note: A&P Assessment and Plan (1) KEITH (acute kidney injury): Code(s): N17.9 - Acute kidney failure, unspecified Status: Acute Assessment and Plan: acute kidney injury renal ultrasound unremarkable urine electrolytes pre renal likely due to several issues: - prerenal factors - poor oral intake/diarrhea - acute infection C. Diff the patient may have a component of ATN the creatinine improved to 2.3 today diarrhea is gone. She received diuretics plus albumin yesterday. She says she urinated a lot. Has not been recorded because of incontinence. Her creatinine improved impressively to 2.3. This is close to her baseline. (2) Chronic kidney disease, stage IV (severe): Code(s): N18.4 - Chronic kidney disease, stage 4 (severe) Status: Chronic Assessment and Plan: baseline creatinine seems to run ~ 1.6 - 2.2mg/dl presumably due to HTN, DM, vascular disease and age (3) Urinary tract infection: Qualifiers: Urinary tract infection type: site unspecified Hematuria presence: without hematuria Qualified Code(s): N39.0 - Urinary tract infection, site not specified Code(s): N39.0 - Urinary tract infection, site not specified Status: Acute Assessment and Plan: No antibiotics per Infectious Disease consultation Since no symptoms. (4) Altered mental status: Code(s): R41.82 - Altered mental status, unspecified Status: Acute Assessment and Plan: has been waxing and waning since admission There is question of vascular issues or dementia. AURORA Puga's note seen. (5) Colitis: Code(s): K52.9 - Noninfective gastroenteritis and colitis, unspecified Status: Acute Assessment and Plan: noted to be C. diff positive No diarrhea for several days. continue current therapy Subjective Date/time seen: 03/15/21 08:01 Interval history: The patient is feeling okay today. swelling seems better today. Exam Narrative: Exam Narrative: General: WD/WN female in NAD Heart: normal S1 and S2; no rub Lungs: decreasd at bases Abdomen: soft, nontender, nondistended, positive bowel sounds Extremities: no cyanosis or clubbing; 1-2+ edema Skin: no rash Objective Data Vital Signs Vital Signs: Vital Signs - 24 hr 03/14/21 10:00 03/14/21 10:01 03/14/21 14:00 Temperature 36.1 C L 36.3 C L Pulse Rate 74 80 72 Respiratory Rate 18 18 Blood Pressure 144/67 H 112/55 L Pulse Oximetry 100 97 03/14/21 20:04 03/14/21 21:21 03/14/21 22:00 Temperature 36.5 C Pulse Rate 75 72 72 Respiratory Rate 18 21 H Blood Pressure 138/60 Pulse Oximetry 100 03/15/21 00:00 03/15/21 04:00 Temperature 36.4 C L 36.3 C L Pulse Rate 68 73 Respiratory Rate 20 18 Blood Pressure 131/63 150/63 H Pulse Oximetry 98 96 Intake/Output Intake/Output: Intake & Output 03/12/21 03/13/21 03/14/21 03/15/21 23:59 23:59 23:59 23:59 Intake Total 420 1770 1020 400 Output Total 400 200 Balance 20 1570 1020 400 Meds/Results Medications: Active Medications Generic Name Dose Route Start Last Admin Trade Name Freq PRN Reason Stop Dose Admin Albuterol 2 puff 03/04/21 11:39 Albuterol Sulfate (*Sp) Aerosol 1 Puff INHALATION Q6H PRN Shortness Of Breath Or Wheezing Aspirin 81 mg 03/05/21 08:00 03/14/21 10:00 Aspirin 81 Mg Chewable Tablet PO 81 mg DAILY@0800 GERRI Administration Atorvastatin Calcium 80 mg 03/06/21 09:00 03/14/21 10:01 Atorvastatin 40 Mg Tablet PO 80 mg Q48HR GERRI Administration Bumetanide 1 mg 03/14/21 09:00 03/14/21 16:59 Bumetanide Inj 1 Mg/4 Ml Vial IV PUSH 1 mg BID GERRI Administration Bumetanide 1 mg 03/14/21 17:40 03/14/21 21:21 Bumetanide Inj 1 Mg/4 Ml Vial IV PUSH 1 mg BID GERRI Administration Bupropion HCl 75 mg 03/04/21 17:00 03/14/21 16:59 Bupropion Hcl 75 Mg Tablet PO 75 mg
[2021-03-15 08:35] LABS: Glucose Point of Care 176 mg/dl (65-105)
[2021-03-15] MEDS: FLUTICASONE/SALMETEROL 115-21 MCG INHALER 1 PUFF 2 PUFF INHALATION (08:58)
[2021-03-15] MEDS: ALBUMIN HUMAN 25% 25 GM/100 ML 100 ML IVPB ×2 (10:37→18:13)
[2021-03-15] MEDS: ASPIRIN 81 MG CHEWABLE TABLET PO (10:38)
[2021-03-15] MEDS: BUMETANIDE INJ 1 MG/4 ML VIAL IV PUSH ×2 (10:39→18:13)
[2021-03-15] MEDS: FAMOTIDINE 20 MG TABLET 40 MG PO (10:39)
[2021-03-15] MEDS: buPROPion HCL 75 MG TABLET PO ×2 (10:39→18:14)
[2021-03-15] MEDS: ISOSORBIDE MONONITRATE 10 MG TABLET PO ×2 (10:39→18:14)
[2021-03-15] MEDS: FIDAXOMICIN 200 MG TABLET PO ×2 (10:39→20:09)
[2021-03-15] MEDS: TICAGRELOR 90 MG TABLET PO ×2 (10:39→20:08)
[2021-03-15] MEDS: SACCHAROMYCES BOULARDII 250 MG CAPSULE PO ×2 (10:39→18:14)
[2021-03-15] MEDS: METOPROLOL TARTRATE 12.5 MG TABLET PO ×2 (10:39→20:09)
[2021-03-15] MEDS: FLUoxetine HCL 20 MG CAPSULE 40 MG PO (10:39)
[2021-03-15] MEDS: POTASSIUM CHLORIDE 20 MEQ TABLET 60 MEQ PO (10:41)
[2021-03-15] MEDS: VENLAFAXINE HCL 25 MG TABLET PO ×2 (10:42→18:14)
[2021-03-15] MEDS: TOLNAFTATE 1% POWDER 45 GM BTL 1 APPLIC TOPICAL ×2 (10:43→20:18)
--- NOTE | 2021-03-15 11:28 | PCNFU ---
Nutrition Follow-Up Complete: Inadequate oral intake related to inability to consume foods orally due to confusion and lethary as evidence by NPO diet order and 0% intake Goal: Total intake will meet estimated kcal and protein needs Patient is still working towards goal. Pt current nutrition is DBCC, Heart Healthy. Last recorded weight is 70.9 kg. Bowel Motility: Last BM: 03/15 Labs Reviewed: Hgb 8.5, Hct 28.6, Na 132, K 3.2, GFR 21, BUN 45, Cr 2.3, Glu 178 Meds Noted: Albutein, Albuterol, Aspirin, Lipitor, Bumex, Wellbutrin, Dextrose, Pepcid, Dificid, Prozac, Glucagon, Glutose 15, Novolog, Atrovent, Ismo, Lopressor, Flagyl, Nitrostat, Florastor, Advair, Brilinta, Tolnaftate, Effexor. Additional Notes: Patient had Modified Barium Swallow test on 03/14 and was advanced from moderately thick liquids to regular liquids. Breakfast was refused, but 25% of lunch and dinner were consumed. Patient reports having a good appetite. Ensure Compact Nutritional Supplement being received BID providing 220 kcals and 9 gm protein. Banotrol being received TID providing an additional 40 kcals. Will continue to monitor weight, meal consumption and bowel motility. Diet plan, Swallow Eval, labs, weight every 5 days.
--- NOTE | 2021-03-15 11:44 | PCNSR ---
On 03/15/21, the student,Marjorie Oakes, provided care and completed [facility] documentation on this patient. I have reviewed the student's documentation and agree with the findings.
--- NOTE | 2021-03-15 14:41 | PCSTNOTE ---
Patient was seen for informal session today with present. Patient reports that her swallowing is going good, very good. And she denied difficulty with swallowing or coughing when eating or drinking, however she did drink soda in front of therapist and was observed to cough one time. Therapist instructed that no matter what diet or liquid consistency patient is on, she will most likely always cough once or twice during meals and this is to be expected, to watch and monitor for signs of aspiration including wet vocal quality, wet cough, and elevated temperature. They voiced understanding. Therapist will continue to monitor while in acute care but not be seen for direct ST as patient is really unable to effect a change in the strength of the swallow and unable to complete any safe swallowing guidelines that could prevent her from becoming tickled or choked when eating or drinking.
[2021-03-15 15:43] LABS: Chloride Rand Ur 24 mmol/L (32-290); Chloride/Creatinine Rand Ur 18 (38-318); Creatinine Random Urine 137 mg/dL (20-275)
[2021-03-15 17:02] LABS: Glucose Point of Care 171 mg/dl (65-105)
--- NOTE | 2021-03-15 17:25 | P.PNIM_ITS ---
Progress Note: A&P Assessment and Plan (1) C. difficile colitis: Code(s): A04.72 - Enterocolitis due to Clostridium difficile, not specified as recurrent Status: Acute Assessment and Plan: Pt is positive for C.Diff and was started on oral vanc 03/05/21 after becoming febrile with worsening colitis on CT -Spoke with Dr. Ross, ID, who agrees with switching to Dificid and recommends adding IV flagyl - continue these. -March 06- WBC significantly elevated 21.8, 23.7, 22.0, improved after IV flagyl and Dificid. - diarrhea output improved, no further fevers -but Leukocytosis still not resolved, despite KUB showing improved and resolving coliitis. -Persistent elevated WBC may be UTI related/CHF related/ARF related : March 09- March 13: 13.9, 13.4, 16.8, 14.0, 14.0. -isolation in place -no hx of cdiff -Florastor 250mg PO BID -on Banatrol to slow down the BMs (2) Acute kidney injury superimposed on chronic kidney disease: Code(s): N17.9 - Acute kidney failure, unspecified; N18.9 - Chronic kidney disease, unspecified Status: Acute Assessment and Plan: * Was thought to be dehydrated with acute mental status change and no oral intake at admission * continues to have low oral intake even today * BNP may be elevated, but that may be related to the ARF/abdominal colitis/bowel inflammation and not true CHF. * Fluids given for 2 day with increase in BUN/Cr peaked at 54/3.50 * Fluids DC'd 03/09/21 * 20mg of lasix given 03/09/21 * 3+ pitting edema noted on exam * BUN/Cr have gotten better today at 49/2.70 * 25g albumin and 1mg IV bumex * Strict I&Os * Chest xray was read as cardiomeagly with chronic interstitial lung disease * Trend BUN/Cr * Labs in the am * BNP was 1600 03/10/21, repeat 1440 (3) Acute UTI: Code(s): N39.0 - Urinary tract infection, site not specified Status: Acute Assessment and Plan: -lactic normal, bicarb waxes and wane. Likely due to GI loss/diarrhea Urine culture with ESBL + on on March 04. -ID Dr. Black recommended stopping zosyn and monitoring. She had no urological symptoms on presentation and the abdomen may have been tender from the colitis. If this changes, he would start her on a carbapenem. - repeated Urine Culture on March 13 as the patient's WBC remains abnormal and her Altered Mental Status persists. -March 04 Blood cultures NGTD, repeated Blood Cultures on March 13. (4) Colitis: Code(s): K52.9 - Noninfective gastroenteritis and colitis, unspecified Status: Acute Assessment and Plan: as above in C.Diff colitis * noted to be C. diff positive * continue current therapy (5) Chronic diastolic CHF (congestive heart failure): Code(s): I50.32 - Chronic diastolic (congestive) heart failure Status: Acute Assessment and Plan: appears to be euvolemic -takes daily low dose lasix at home, prior to admission -was thought to be dry at admission, lasix held. -Fluids were DC'd 03/09/21 -BNP 1600 on March 10, will need to repeat BNP tomorrow morning and compare, but remember BNP affect by renal failure. -was given 40mg of IV lasix x1 due to poor renal function (KEITH) -improved pitting edema - need to continue PT/OT and increase mobility and activity of patient - need to continue SCDs -continue metorpolol, aspirin, and atorvastatin (6) GERD (gastroesophageal reflux disease): Code(s): K21.9 - Gastro-esophageal reflux disease without esophagitis Status: Acute Assessment and Plan: Continue famotidine no complaints of reflux or GERD (7) Atrial
[2021-03-15 21:53] LABS: Glucose Point of Care 198 mg/dl (65-105)
--- NOTE | 2021-03-15 23:39 | PCRCNOTE ---
Window of time for administration has passed. See next scheduled administration.
[2021-03-16] VITALS: BP 130/57; PULSE 70; RESP 20; TEMP 36.6; O2SAT 100
[2021-03-16] MEDS: metroNIDAZOLE 500 MG/ISO 100ML 500 MG/100 ML BAG 100 MG IVPB ×2 (02:23→11:26)
[2021-03-16 04:00] VITALS: BP 126/58; PULSE 71; RESP 21; TEMP 36.4; O2SAT 100
[2021-03-16 06:37] LABS: Hematocrit 32.2 % (37.0-47.0); Hemoglobin 9.5 g/dL (12.0-15.0); Mean Corpuscular HGB Conc 29.5 g/dl (32-36); Mean Corpuscular Hemoglobin 24.9 pg (26-34); Mean Corpuscular Volume 84.5 fl (80-100); Mean Platelet Volume 11.3 fl (7.4-10.4); Platelet Count Result 367 k/mm3 (150-375); Red Blood Count 3.81 M/mm3 (4.2-5.4); Red Cell Distribution Width 18.1 % (11.5-14.5); White Blood Count 13.4 K/mm3 (4.5-10.0)
[2021-03-16 06:48] LABS: Sodium 134 mmol/L (137-145)
[2021-03-16 06:54] LABS: Anion Gap 9 mmol/L (8-16); Blood Urea Nitrogen 39 mg/dL (7-17); Carbon Dioxide 18 mmol/L (22-30); Chloride 107 mmol/L (98-107); Estimated CRCL calculation 18 ml/min; Estimated Glomerular Filt Rate 23; Glucose 167 mg/dL (65-110); Magnesium 1.9 mg/dL (1.6-2.3); NT Pro B Type Natriuretic Pept 2260 pg/mL (5-100); Phosphorus 3.5 mg/dL (2.5-4.5); Potassium 3.5 mmol/L (3.4-5.0)
[2021-03-16] MEDS: FLUTICASONE/SALMETEROL 115-21 MCG INHALER 1 PUFF 2 PUFF INHALATION (07:52)
[2021-03-16] MEDS: ALBUMIN HUMAN 25% 25 GM/100 ML 100 ML IVPB (09:34)
[2021-03-16] MEDS: VENLAFAXINE HCL 25 MG TABLET PO (09:37)
[2021-03-16] MEDS: buPROPion HCL 75 MG TABLET PO (09:37)
[2021-03-16] MEDS: METOPROLOL TARTRATE 12.5 MG TABLET PO (09:37)
[2021-03-16] MEDS: ASPIRIN 81 MG CHEWABLE TABLET PO (09:37)
[2021-03-16] MEDS: ISOSORBIDE MONONITRATE 10 MG TABLET PO (09:37)
[2021-03-16] MEDS: SACCHAROMYCES BOULARDII 250 MG CAPSULE PO (09:37)
[2021-03-16] MEDS: ATORVASTATIN 40 MG TABLET 80 MG PO (09:37)
[2021-03-16] MEDS: FIDAXOMICIN 200 MG TABLET PO (09:37)
[2021-03-16] MEDS: FAMOTIDINE 20 MG TABLET 40 MG PO (09:37)
[2021-03-16] MEDS: FLUoxetine HCL 20 MG CAPSULE 40 MG PO (09:37)
[2021-03-16] MEDS: TICAGRELOR 90 MG TABLET PO (09:38)
[2021-03-16] MEDS: TOLNAFTATE 1% POWDER 45 GM BTL 1 APPLIC TOPICAL (09:38)
[2021-03-16 10:00] VITALS: BP 124/59; PULSE 95; RESP 16; TEMP 36.1; O2SAT 94
--- NOTE | 2021-03-16 10:20 | WPDNEURCNPN ---
Assessment and Plan Additional Plan family's request for the neurology consultation note I will discussed with them inperson Consult date: 03/16/21 Time Seen: 09:30 HPI: Alesha Leo is a 75 year old female admitted to the hospital for the complaints of change in the mental status in addition to the ongoing diagnosis of 1. Diabetes mellitus insulin-dependent 2. COPD 3. Hypertension 4. Chronic kidney disease. Reportedly she was discharged from [facility] on March 02, 2021 in addition to history of multiple hospitalization in the past as well. Patient was reportedly confused with increase in the confusion, decrease in the appetite, and history of recent UTI. 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 she has been documented to have pancolitis with small volume of ascites and multi nodular goiter by the radiological investigations her routine labs compatible with mild abnormalities such as mild hyponatremia BUN of 39 creatinine 2.10 GFR only 23 glucose 167 Review of Systems Review of Systems: All systems reviewed & are unremarkable except as noted in HPI and below PMFSH Past Medical History Medical History Acute kidney injury superimposed on chronic kidney disease Acute on chronic congestive heart failure Anemia Anxiety Atrial fibrillation Chronic diastolic CHF (congestive heart failure) Coronary artery disease Depression Diabetes mellitus Diabetic neuropathy Dysphagia, pharyngoesophageal Dyspnea on exertion GERD (gastroesophageal reflux disease) Hyperlipidemia Hypertension Obstructive sleep apnea Peripheral vascular disease Pneumonia SIRS (systemic inflammatory response syndrome) Urinary tract infection Surgical History Surgical History H/O angioplasty H/O breast biopsy History of endarterectomy Hx of CABG Status post insertion of iliac artery stent Family History Family History Mother Hyperlipidemia Hypertension Father Lung cancer Hypertension Social History Social History Social History: patient lives with her spouse in a 2 level home with 2 steps to enter and 12 steps between the level. Bedroom and bathroom are located on the 2nd floor. Prior to admission patient was completely independent requiring no adaptive devices. Patient is able stay at the daughter's house following patient if unable to navigate stairs. former smoker. No alcohol or drug abuse. Smoking packs per day: 1 Smoking cigarettes per day: 20.0 Years smoked: 40 Smoking pack-years: 40.00 Smoking status: Former smoker Alcohol intake: never Substance use: never Substance use type: does not use Gender identity (if verbalized by the patient): Female Spiritual care concerns: No Meds Home Medications and Allergies Home Medications Medication Instructions Recorded Confirmed Type Brilinta 90 mg PO Q12H 02/19/21 03/04/21 History aspirin 81 mg PO DAILY 02/19/21 03/04/21 History cetirizine [Zyrtec] 10 mg PO DAILY 02/19/21 03/04/21 History ergocalciferol (vitamin D2) 50,000 unit PO WEEKLY 02/19/21 03/04/21 History fenofibrate micronized 134 mg PO DAILY 02/19/21 03/04/21 History ferrous sulfate [Feosol] 325 mg PO DAILY 02/19/21 03/04/21 History fluoxetine [Prozac] 40 mg PO DAILY 02/19/21 03/04/21 History fluticasone propion-salmeterol 1 inh INHALATION Q12H 02/19/21 03/04/21 History [Advair Diskus] furosemide [Lasix] 20 mg PO DAILY 02/19/21 03/04/21 History Lantus U-100 Insulin 15 unit SUBCUT HS #10 ml
[2021-03-16 10:45] LABS: Glucose Point of Care 165 mg/dl (65-105)
--- NOTE | 2021-03-16 10:53 | PM.PNNEP ---
Progress Note: A&P Assessment and Plan (1) KEITH (acute kidney injury): Code(s): N17.9 - Acute kidney failure, unspecified Status: Acute Assessment and Plan: acute kidney injury due to pre renal factors plus infection. Resolved (2) Chronic kidney disease, stage IV (severe): Code(s): N18.4 - Chronic kidney disease, stage 4 (severe) Status: Chronic Assessment and Plan: baseline creatinine seems to run ~ 1.6 - 2.2mg/dl presumably due to HTN, DM, vascular disease and age (3) Urinary tract infection: Qualifiers: Hematuria presence: without hematuria Urinary tract infection type: site unspecified Qualified Code(s): N39.0 - Urinary tract infection, site not specified Code(s): N39.0 - Urinary tract infection, site not specified Status: Acute Assessment and Plan: No antibiotics per Infectious Disease consultation siince no symptoms. (4) Altered mental status: Code(s): R41.82 - Altered mental status, unspecified Status: Acute Assessment and Plan: seems relatively stable (5) Colitis: Code(s): K52.9 - Noninfective gastroenteritis and colitis, unspecified Status: Acute Assessment and Plan: noted to be C. diff positive No diarrhea for several days. continue current therapy Subjective Date/time seen: 03/16/21 10:53 Interval history: The patient is feeling okay today. Less swollen today. No diarrhea Exam Narrative: Exam Narrative: General: WD/WN female in NAD Heart: normal S1 and S2; no rub or gallop Lungs: decreased at bases Abdomen: soft, nontender, nondistended, positive bowel sounds Extremities: no cyanosis or clubbing; 1-2+ edema Skin: no rash or subcu nodules Objective Data Vital Signs Vital Signs: Vital Signs - 24 hr 03/15/21 14:00 03/15/21 18:00 03/15/21 20:09 Temperature 36.7 C 37.2 C Pulse Rate 74 70 80 Respiratory Rate 18 18 Blood Pressure 149/72 H 124/67 Pulse Oximetry 96 94 03/15/21 22:00 03/16/21 00:00 03/16/21 04:00 Temperature 36.6 C 36.6 C 36.4 C Pulse Rate 79 70 71 Respiratory Rate 21 H 20 21 H Blood Pressure 147/52 H 130/57 L 126/58 L Pulse Oximetry 100 100 100 03/16/21 10:00 Temperature 36.1 C L Pulse Rate 95 Respiratory Rate 16 Blood Pressure 124/59 L Pulse Oximetry 94 Intake/Output Intake/Output: Intake & Output 03/13/21 03/14/21 03/15/21 03/16/21 23:59 23:59 23:59 23:59 Intake Total 1770 1120 2030 520 Output Total 200 Balance 1570 1120 2030 520 Meds/Results Medications: Active Medications Generic Name Dose Route Start Last Admin Trade Name Freq PRN Reason Stop Dose Admin Albuterol 2 puff 03/04/21 11:39 Albuterol Sulfate (*Sp) Aerosol 1 Puff INHALATION Q6H PRN Shortness Of Breath Or Wheezing Aspirin 81 mg 03/05/21 08:00 03/16/21 09:37 Aspirin 81 Mg Chewable Tablet PO 81 mg DAILY@0800 GERRI Administration Atorvastatin Calcium 80 mg 03/06/21 09:00 03/16/21 09:37 Atorvastatin 40 Mg Tablet PO 80 mg Q48HR GERRI Administration Bumetanide 1 mg 03/14/21 09:00 03/15/21 18:13 Bumetanide Inj 1 Mg/4 Ml Vial IV PUSH 1 mg BID GERRI Administration Bupropion HCl 75 mg 03/04/21 17:00 03/16/21 09:37 Bupropion Hcl 75 Mg Tablet PO 75 mg BID GERRI Administration Dextrose 12.5 gm 03/06/21 10:18 Dextrose 50% 25 Gm/50 Ml Syringe IV PUSH PRN PRN Hypoglycemia Protocol Famotidine 40 mg 03/05/21 09:00 03/16/21 09:37 Famotidine 20 Mg Tablet PO 40 mg DAILY GERRI Administration Fidaxomicin 200 mg 03/07/21 09:00 03/16/21 09:37 Fidaxomicin 200 Mg Tablet PO 200 mg Q12HR GERRI Administration Fluoxetine HCl 40 mg 03/05/21 09:00 03/16/21 09:37 Fluoxetine Hcl 20 Mg Capsule PO 40 mg DAILY GERRI Administration Glucagon 1 mg 03/06/21 10:18 Glucagon For Inj 1 Mg Vial IM PRN PRN Hypoglycemia Protocol Glucose 15 gm
[2021-03-16] MEDS: BUMETANIDE INJ 1 MG/4 ML VIAL IV PUSH (11:26)
--- NOTE | 2021-03-16 13:26 | P.DS_ITS ---
DS: Admitting Diagnosis Admitting Diagnosis C diff colitis and altered mental status DS: Discharge Diagnosis Discharge Diagnosis (1) C. difficile colitis: Code(s): A04.72 - Enterocolitis due to Clostridium difficile, not specified as recurrent Status: Acute Assessment and Plan: Pt is positive for C.Diff and was started on oral vanc 03/05/21 after becoming febrile with worsening colitis on CT -Spoke with TEENA Marrero, who agrees with switching to Dificid and recommends adding IV flagyl - continue these. -March 06- WBC significantly elevated 21.8, 23.7, 22.0, improved after IV flagyl and Dificid. - diarrhea output improved, no further fevers -but Leukocytosis still not resolved, despite KUB showing improved and resolving coliitis. -Persistent elevated WBC may be UTI related/CHF related/ARF related : March 09- March 13: 13.9, 13.4, 16.8, 14.0, 14.0. -isolation in place -no hx of cdiff -Florastor 250mg PO BID -on Banatrol to slow down the BMs (2) Acute kidney injury superimposed on chronic kidney disease: Code(s): N17.9 - Acute kidney failure, unspecified; N18.9 - Chronic kidney disease, unspecified Status: Acute Assessment and Plan: * Was thought to be dehydrated with acute mental status change and no oral intake at admission * continues to have low oral intake even today * BNP may be elevated, but that may be related to the ARF/abdominal colitis/bowel inflammation and not true CHF. * Fluids given for 2 day with increase in BUN/Cr peaked at 54/3.50 * Fluids DC'd 03/09/21 * 20mg of lasix given 03/09/21 * 3+ pitting edema noted on exam * BUN/Cr have gotten better today at 49/2.70 * 25g albumin and 1mg IV bumex * Strict I&Os * Chest xray was read as cardiomeagly with chronic interstitial lung disease * Trend BUN/Cr * Labs in the am * BNP was 1600 03/10/21, repeat 1440 (3) Acute UTI: Code(s): N39.0 - Urinary tract infection, site not specified Status: Acute Assessment and Plan: -lactic normal, bicarb waxes and wane. Likely due to GI loss/diarrhea Urine culture with ESBL + on on March 04. -ID Dr. Black recommended stopping zosyn and monitoring. She had no urological symptoms on presentation and the abdomen may have been tender from the colitis. If this changes, he would start her on a carbapenem. - repeated Urine Culture on March 13 as the patient's WBC remains abnormal and her Altered Mental Status persists. -March 04 Blood cultures NGTD, repeated Blood Cultures on March 13. (4) Colitis: Code(s): K52.9 - Noninfective gastroenteritis and colitis, unspecified Status: Acute Assessment and Plan: as above in C.Diff colitis * noted to be C. diff positive * continue current therapy (5) Chronic diastolic CHF (congestive heart failure): Code(s): I50.32 - Chronic diastolic (congestive) heart failure Status: Acute Assessment and Plan: appears to be euvolemic -takes daily low dose lasix at home, prior to admission -was thought to be dry at admission, lasix held. -Fluids were DC'd 03/09/21 -BNP 1600 on March 10, will need to repeat BNP tomorrow morning and compare, but remember BNP affect by renal failure. -was given 40mg of IV lasix x1 due to poor renal function (KEITH) -improved pitting edema - need to continue PT/OT and increase mobility and activity of patient - need to continue SCDs -continue metorpolol, aspirin, and atorvastatin (6) GERD (gastroesophageal reflux disease): Code(s): K21.9 - Gastro-esophageal reflux disease without esophagitis Status: Acute Asses
[2021-03-16 13:33] LABS: Glucose Point of Care 158 mg/dl (65-105)
--- NOTE | 2021-03-16 13:46 | WPDNEURCNPN ---
Consult date: 03/16/21 Time Seen: 13:45 HPI: Alesha Leo is a 75 year old female, call the daughter discussed with her elsa all the problems and also the pros and cons of the diagnosis of dementia in addition to the different medications available she accepted her to be started on donepezil 5 mg daily will wait for 1 month then increase the dosage to10mg daily until unless she needs a 2nd medication but she is awake PMFSH Past Medical History Medical History Acute kidney injury superimposed on chronic kidney disease Acute on chronic congestive heart failure Anemia Anxiety Atrial fibrillation Chronic diastolic CHF (congestive heart failure) Coronary artery disease Depression Diabetes mellitus Diabetic neuropathy Dysphagia, pharyngoesophageal Dyspnea on exertion GERD (gastroesophageal reflux disease) Hyperlipidemia Hypertension Obstructive sleep apnea Peripheral vascular disease Pneumonia SIRS (systemic inflammatory response syndrome) Urinary tract infection Surgical History Surgical History H/O angioplasty H/O breast biopsy History of endarterectomy Hx of CABG Status post insertion of iliac artery stent Family History Family History Mother Hyperlipidemia Hypertension Father Lung cancer Hypertension Social History Social History Social History: patient lives with her spouse in a 2 level home with 2 steps to enter and 12 steps between the level. Bedroom and bathroom are located on the 2nd floor. Prior to admission patient was completely independent requiring no adaptive devices. Patient is able stay at the daughter's house following patient if unable to navigate stairs. former smoker. No alcohol or drug abuse. Smoking packs per day: 1 Smoking cigarettes per day: 20.0 Years smoked: 40 Smoking pack-years: 40.00 Smoking status: Former smoker Alcohol intake: never Substance use: never Substance use type: does not use Gender identity (if verbalized by the patient): Female Spiritual care concerns: No Meds Home Medications and Allergies Home Medications Medication Instructions Recorded Confirmed Type Brilinta 90 mg PO Q12H 02/19/21 03/04/21 History aspirin 81 mg PO DAILY 02/19/21 03/04/21 History cetirizine [Zyrtec] 10 mg PO DAILY 02/19/21 03/04/21 History ergocalciferol (vitamin D2) 50,000 unit PO WEEKLY 02/19/21 03/04/21 History fenofibrate micronized 134 mg PO DAILY 02/19/21 03/04/21 History ferrous sulfate [Feosol] 325 mg PO DAILY 02/19/21 03/04/21 History fluoxetine [Prozac] 40 mg PO DAILY 02/19/21 03/04/21 History fluticasone propion-salmeterol 1 inh INHALATION Q12H 02/19/21 03/04/21 History [Advair Diskus] furosemide [Lasix] 20 mg PO DAILY 02/19/21 03/04/21 History Lantus U-100 Insulin 15 unit SUBCUT HS #10 ml 03/01/21 03/04/21 Rx Saccharomyces boulardii [Florastor] 250 mg PO BID #60 cap 03/01/21 03/04/21 Rx albuterol sulfate 2 puff INHALATION Q6H PRN #1 g 03/01/21 03/04/21 Rx amlodipine [Norvasc] 10 mg PO DAILY #30 tablet 03/01/21 03/04/21 Rx atorvastatin 80 mg PO EVERY OTHER DAY #15 tablet 03/01/21 03/04/21 Rx bupropion HCl 75 mg PO BID #60 tablet 03/01/21 03/04/21 Rx famotidine 40 mg PO DAILY #30 tablet 03/01/21 03/04/21 Rx ipratropium bromide 2 spray INTRANASAL BID PRN #1 ml 03/01/21 03/04/21 Rx isosorbide mononitrate 10 mg PO BID #60 tablet 03/01/21 03/04/21 Rx metoprolol tartrate 12.5 mg PO BID #60 tablet 03/01/21 03/04/21 Rx nitroglycerin 0.4 mg SUBLINGUAL Q5-15M PRN #30 03/01/21 03/04/21 Rx tablet venlafaxine 25 mg PO BIDWM #60 tablet 03/01/21 03/04/21 Rx Allergies Allergy/AdvReac Type Severity Reaction Status Date / Time HENRI Inhibitors Allergy Unknown Vomiting Verified 03/04/21 02:30 liraglutide [From Victoza] AdvReac Unknown Vomiting Verified 03/10/21 08:25
--- NOTE | 2021-03-16 15:50 | PCSTNOTE ---
The patient treatment was not able to be completed on 03/16 due to passing Modified Barium Swallow study, goals achieved. No further ST required.
== END 2021-03-16 16:10 | DRG 871 ==
LOC: ANHED 03-04 01:37 → ANH2MED 03-04 01:37
PROVIDERS: Internal Medicine Gastroenterology; Internal Medicine Nephrology; Nurse Practitioner; Physician Assistant; Admitting Provider Internal Medicine; Emergency Provider Emergency Medicine; PCP Internal Medicine; Visit Provider Nurse Practitioner
DX: A41.9 Sepsis, unspecified organism (principal); G93.41 Metabolic encephalopathy; N39.0 Urinary tract infection, site not specified; I50.32 Chronic diastolic (congestive) heart failure; I13.0 Hypertensive heart and chronic kidney disease with heart failure and stage 1 through stage 4 chronic kidney disease, or unspecified chronic kidney disease; A04.72 Enterocolitis due to Clostridium difficile, not specified as recurrent; N18.4 Chronic kidney disease, stage 4 (severe); N17.9 Acute kidney failure, unspecified; Z87.891 Personal history of nicotine dependence; I48.91 Unspecified atrial fibrillation; E11.22 Type 2 diabetes mellitus with diabetic chronic kidney disease; N18.9 Chronic kidney disease, unspecified; G47.33 Obstructive sleep apnea (adult) (pediatric); E11.40 Type 2 diabetes mellitus with diabetic neuropathy, unspecified; E78.5 Hyperlipidemia, unspecified; K21.9 Gastro-esophageal reflux disease without esophagitis; E04.2 Nontoxic multinodular goiter; B96.20 Unspecified Escherichia coli [E. coli] as the cause of diseases classified elsewhere; E87.6 Hypokalemia; R13.14 Dysphagia, pharyngoesophageal phase
CPT/HCPCS: 36415; 36600; 51701; 70450; 70551; 71045; 71250; 74018; 74019; 74176; 76775; 80048; 80053; 80069; 80076; 81001; 82375; 82436; 82570; 82805; 82948; 83050; 83605; 83735; 83880; 84100; 84300; 84443; 85025; 85027; 85610; 85730; 85999; 86140; 87040; 87045; 87046; 87077; 87086; 87088; 87186; 87324; 87427; 92507; 92526; 92611; 93005; 93971; 94640; 96361; 96365; 96366; 96367; 97110; 97116; 97161; 97165; 97530; 97535; 99285; A9270; G0378; J1815; J1940; J2543; J3480; J7030; J7120; P9047